=== PATIENT | female | born 1950 ===

== ENCOUNTER 2016-07-27 18:56 | Emergency (ER) | payer MEDICAID ==
[2016-07-27 18:56] VITALS: BMI 36.2
[2016-07-27 21:35] LABS: CHLORIDE 98 mmol/L (98-107)
[2016-07-27 21:36] LABS: BASO % 0.1 % (0.0-2.0); EOS # 0.1 K/uL (0.0-0.7); EOS % 0.6 % (0.0-4.0); HEMATOCRIT 42.7 % (34.0-47.0); LYMPH # 1.8 K/uL (1.0-4.3); MEAN CORPUSCULAR HGB CONC 33.1 g/dL (33.0-37.0); MEAN PLATELET VOLUME 7.3 fL (7.2-11.7); MONO # 0.4 K/uL (0.0-0.8); MONO % 4.3 % (0.0-10.0); POTASSIUM 4.7 mmol/L (3.6-5.2); RED CELL DISTRIBUTION WIDTH 14.9 % (11.5-14.5); SODIUM 135 mmol/L (132-148); WHITE BLOOD COUNT 9.5 K/uL (4.8-10.8)
[2016-07-27 21:38] LABS: ALB/GLOB RATIO 1.1 (1.0-2.1); ALKALINE PHOSPHATASE 104 U/L (38-126); AST/SGOT 62 U/L (14-36); BILIRUBIN,TOTAL 1.4 mg/dL (0.2-1.3); BLOOD UREA NITROGEN 12 mg/dL (7-17); CARBON DIOXIDE 21 mmol/L (22-30); GFR AFRICAN-AMERICAN > 60; GLUCOSE,RANDOM 94 mg/dL (65-105); TOTAL PROTEIN 8.5 g/dL (6.3-8.3)
[2016-07-27 21:39] LABS: ALT/SGPT 24 U/L (9-52); CALCIUM 9.1 mg/dl (8.6-10.4)
[2016-07-27 21:40] LABS: MEAN CELL VOLUME 84.3 fL (81.0-99.0)
[2016-07-27] MEDS ORDERED: Sodium Chloride 0.9% 1,000 ML IV ONE (21:49)
[2016-07-27] MEDS ORDERED: Iohexol 240 (50 ml) PO STA (21:49)
[2016-07-27 21:53] LABS: RBC URINE 2 /hpf (0-3); TRANSITIONAL EPITHIAL < 1 /hpf (0-3); URINE BACTERIA RARE (<OCC); URINE BILIRUBIN NEGATIVE (NEGATIVE); URINE BLOOD NEGATIVE (NEGATIVE); URINE COLOR Straw (YELLOW); URINE GLUCOSE (UA) NORMAL (Normal); URINE KETONE NEGATIVE (NEGATIVE); URINE LEUKOCYTE ESTERASE NEG Leu/uL (Negative); URINE PROTEIN NEGATIVE (NEGATIVE); URINE UROBILINOGEN NORMAL mg/dL (0.2-1.0); WBC URINE 1 /hpf (0-5)
[2016-07-27] MEDS ORDERED: Iohexol 240 (50 ml) ONE (22:31)
[2016-07-27] MEDS ORDERED: Iodixanol 320 MG/ML 100 ML BOTTLE IV ONE (22:31)
[2016-07-27] MEDS ORDERED: Sodium Chloride 0.9% 1,000 ML ONE (22:32)
--- NOTE | 2016-07-27 22:53 | C.PDOC ---
History Of Present Illness 65 year old female pt c/o of mid abdominal pain for the past few days. Pt notes nausea and few episodes of diarrhea, but denies blood in stool, fever, chills, vomiting, or any other complaints. Pt states taking medications for her episodes of diarrhea. Time Seen by Provider: 07/27/16 20:06 Chief Complaint (Nursing): Abdominal Pain History Per: Patient History/Exam Limitations: no limitations Onset/Duration Of Symptoms: Days Current Symptoms Are (Timing): Still Present Severity: Mild Associated Symptoms: Nausea, Diarrhea. denies: Fever, Chills, Vomiting Past Medical History Reviewed: Historical Data, Nursing Documentation, Vital Signs Vital Signs: Last Vital Signs Temp 98.7 F 07/28/16 00:45 Pulse 81 07/28/16 00:45 Resp 20 07/28/16 00:45 BP 159/64 H 07/28/16 00:45 Pulse Ox 96 07/28/16 00:45 - Medical History PMH: Arthritis, Colonic Polyps, Gastritis, Gall Bladder Disease, HTN, Hypercholesterolemia Other PMH: Surgical History: Cholecystectomy, Endoscopy Other Surgeries: Tubal ligation - [facility] Procedures ESOPHAGOGASTRODUODENOSCOPY [EGD] W/CLOSED BIOPSY (04/23/14) Family History: States: Unknown Family Hx - Social History Hx Tobacco Use: No Hx Alcohol Use: No Hx Substance Use: No - Immunization History Hx Tetanus Toxoid Vaccination: No Hx Influenza Vaccination: No Hx Pneumococcal Vaccination: No Review Of Systems Except As Marked, All Systems Reviewed And Found Negative. Constitutional: Negative for: Fever, Chills Gastrointestinal: Positive for: Nausea, Diarrhea. Negative for: Vomiting, Melena Physical Exam - Physical Exam Appears: Non-toxic, No Acute Distress Skin: Warm, Dry Head: Atraumatic, Normacephalic Eye(s): bilateral: Normal Inspection Cardiovascular: Rhythm Regular, No Murmur Respiratory: Normal Breath Sounds, No Rales, No Rhonchi, No Wheezing Gastrointestinal/Abdominal: Tenderness (Mild, diffuse tenderness of abdomen), No Guarding, No Rebound Neurological/Psych: Oriented x3, Normal Speech ED Course And Treatment - Laboratory Results Result Diagrams: 07/27/16 21:22 07/27/16 21:22 ECG: Interpreted By Me, Viewed By Me ECG Rhythm: Sinus Rhythm (84 sinus rhythm) ECG Interpretation: No Acute Changes O2 Sat by Pulse Oximetry: 97 Pulse Ox Interpretation: Normal - CT Scan/US CT Abd/Pel Other Rad Studies (CT/US): Interpreted By Me, Read By Radiologist CT/US Interpretation: EXAM: CT Abdomen and Pelvis With Intravenous Contrast. CLINICAL HISTORY: 65 years old, female; Pain; Abdominal pain; Prior surgery; Surgery type: Colonoscopy; Additional. info: Difuse abd pain. TECHNIQUE: Axial computed tomography images of the abdomen and pelvis with intravenous contrast. This CT. exam was performed using one or more of the following dose reduction techniques: automated. exposure control, adjustment of the mA and/or kV according to patient size, and/or use of iterative. reconstruction technique. Coronal and sagittal reformatted images were created and reviewed. CONTRAST: 100 mL of [id number] administered intravenously. EXAM DATE/TIME: Exam ordered 07/27/2016 9:49 PM. COMPARISON: No relevant prior studies available. FINDINGS: Lower thorax: Air in the esophagus in keeping with reflux. Small hiatus hernia. Lung bases with. bilateral atelectatic changes, mosaic attenuation, this is a finding with a broad differential but which. may be related to air trapping in appropriate clinical situation, clinical correlation. ABDOMEN: Liver: Hepatic steatosis. Punctate calcification in the liver, this may be related to previous. granulomatous disease. Gallbladder and bile ducts: The gallbladder is not visualized, suggesting prior cholecystectomy. No. ductal dilation. Pancreas: Unremarkable. No mass. No ductal dilation. Spleen: Unremarkable. No splenomegaly. Adrenals: Unremarkable. No mass. Kidneys and ureters: No hydronephrosis. Bilateral hypoattenuating lesions which are too small to. characterize. Nonobstructing right renal calculus, sagittal image 108 there is a questioned punctate. distal left ureteral calculus noting that this is not consider definite and may be a phlebolith, laboratory. correlation. Stomach and bowel: No abdominal wall hernias containing bowel. Scattered diverticuli. Fluid. content in the proximal colon which may be related to the recent procedure and prep. No findings of. bowel obstruction. No mucosal thickening in the areas that can be evaluated. Appendix: Normal appendix. PELVIS: Bladder: Bladder is poorly evaluated relative to collapse, cannot exclude questionable. inhomogeneous bladder wall thickness suggested for example sagittal image 99, coronal image 76 ,. correlation for infection or other bladder wall process recommended. Reproductive: There is a retroverted uterus, please note that details of uterine anatomy are not. visible on CT. ABDOMEN and PELVIS: Intraperitoneal space: There is no free air. No significant fluid collection. Bones/joints: Degenerative spine changes. Exaggeration of the normal lumbar lordosis. There are. multiple prominent bulging discs seen at multiple levels, see for example sagittal image 95, there is degenerative disc changes at multiple levels in the included portions of the thoracic and lumbar spine. No acute fracture. No dislocation. Soft tissues: See above. Vasculature: Limited evaluation of the origin of the inferior mesenteric artery, related to adjacent. plaque, although the proximal inferior mesenteric is well seen. Plaque at the origin of the superior. mesenteric artery favored to be less than 50%. Plaque at the origin of the celiac favored to be less. than 50%. extensive atherosclerotic calcifications. No abdominal aortic aneurysm. Lymph nodes: Aortocaval and external iliac nodes which do not meet the size criteria for pathologic. enlargement. IMPRESSION: No free air. Fluid content in the colon which could reflect a diarrheal process but is favored to be. related to the recent procedure. Questionable punctate distal left ureteral stone without hydronephrosis. Hepatic steatosis. Bladder wall is under distended, findings which may be artifactual, correlation for urinary tract. infection or other pathology of the bladder is recommended. Other as above. There is no previous CT of the abdomen for comparison, comparison on site is. recommended. Medical Decision Making Medical Decision Making: Plans: -CT abd/pel -Pepcid -IV fluids -Zofran -reassess and disposition Disposition - Disposition Referrals: Clinic,Med Surg [Primary Care Provider] - Disposition: HOME/ ROUTINE Disposition Time: 01:19 Condition: GOOD Additional Instructions: Follow up with PMD Return to the ED for any new or worsening symptoms Prescriptions: Dicyclomine [Bentyl] 1 tab PO TID PRN #30 tab PRN Reason: .abd pain Esomeprazole Magnesium [Nexium] 1 tab PO DAILY #30 ecc Metoclopramide [Reglan] 1 tab PO TID PRN #25 tab PRN Reason: Nausea/Vomiting Instructions: Abdominal Pain (ED) - Clinical Impression Clinical Impression: Abdominal pain - Scribe Statement The provider has reviewed the documentation as recorded by the Scribe Taz fang All medical record entries made by the Scribe were at my direction and personally dictated by me. I have reviewed the chart and agree that the record accurately reflects my personal performance of the history, physical exam, medical decision making, and the department course for this patient. I have also personally directed, reviewed, and agree with the discharge instructions and disposition.
--- NOTE | 2016-07-28 00:26 | CT ---
EXAM: CT Abdomen and Pelvis With Intravenous Contrast. CLINICAL HISTORY: 65 years old, female; Pain; Abdominal pain; Prior surgery; Surgery type: Colonoscopy; Additional info: Difuse abd pain TECHNIQUE: Axial computed tomography images of the abdomen and pelvis with intravenous contrast. This CT exam was performed using one or more of the following dose reduction techniques: automated exposure control, adjustment of the mA and/or kV according to patient size, and/or use of iterative reconstruction technique. Coronal and sagittal reformatted images were created and reviewed. CONTRAST: 100 mL of [id number] administered intravenously. EXAM DATE/TIME: Exam ordered 07/27/2016 9:49 PM COMPARISON: No relevant prior studies available. FINDINGS: Lower thorax: Air in the esophagus in keeping with reflux. Small hiatus hernia. Lung bases with bilateral atelectatic changes, mosaic attenuation, this is a finding with a broad differential but which may be related to air trapping in appropriate clinical situation, clinical correlation. ABDOMEN: Liver: Hepatic steatosis. Punctate calcification in the liver, this may be related to previous granulomatous disease. Gallbladder and bile ducts: The gallbladder is not visualized, suggesting prior cholecystectomy. No ductal dilation. Pancreas: Unremarkable. No mass. No ductal dilation. Spleen: Unremarkable. No splenomegaly. Adrenals: Unremarkable. No mass. Kidneys and ureters: No hydronephrosis. Bilateral hypoattenuating lesions which are too small to characterize. Nonobstructing right renal calculus, sagittal image 108 there is a questioned punctate distal left ureteral calculus noting that this is not consider definite and may be a phlebolith, laboratory correlation. Stomach and bowel: No abdominal wall hernias containing bowel. Scattered diverticuli. Fluid content in the proximal colon which may be related to the recent procedure and prep. No findings of bowel obstruction. No mucosal thickening in the areas that can be evaluated. Appendix: Normal appendix. PELVIS: Bladder: Bladder is poorly evaluated relative to collapse, cannot exclude questionable inhomogeneous bladder wall thickness suggested for example sagittal image 99, coronal image 76, correlation for infection or other bladder wall process recommended. Reproductive: There is a retroverted uterus, please note that details of uterine anatomy are not visible on CT. ABDOMEN and PELVIS: Intraperitoneal space: There is no free air. No significant fluid collection. Bones/joints: Degenerative spine changes. Exaggeration of the normal lumbar lordosis. There are multiple prominent bulging discs seen at multiple levels, see for example sagittal image 95, there is degenerative disc changes at multiple levels in the included portions of the thoracic and lumbar spine. No acute fracture. No dislocation. Soft tissues: See above. Vasculature: Limited evaluation of the origin of the inferior mesenteric artery, related to adjacent plaque, although the proximal inferior mesenteric is well seen. Plaque at the origin of the superior mesenteric artery favored to be less than 50%. Plaque at the origin of the celiac favored to be less than 50%. extensive atherosclerotic calcifications. No abdominal aortic aneurysm. Lymph nodes: Aortocaval and external iliac nodes which do not meet the size criteria for pathologic enlargement. IMPRESSION: No free air. Fluid content in the colon which could reflect a diarrheal process but is favored to be related to the recent procedure. Questionable punctate distal left ureteral stone without hydronephrosis. Hepatic steatosis. Bladder wall is under distended, findings which may be artifactual, correlation for urinary tract infection or other pathology of the bladder is recommended. Other as above. There is no previous CT of the abdomen for comparison, comparison on site is recommended.
[2016-07-28 01:38] VITALS: BP 126/67; PULSE 79; RESP 16; TEMP 98.9; O2SAT 96
--- NOTE | 2016-07-29 15:07 | CARD ---
APPROVED REPORT EKG Measurement Heart [id number] <Conclusion> Normal sinus rhythm Nonspecific ST abnormality Abnormal ECG
== END 2016-07-28 02:15 | disposition home or self-care (01) ==
LOC: C.ER 18:56 → SUPCPDRO 18:56 → C.ER 07-28 02:15
DX: R10.84 Generalized abdominal pain (principal)
CPT/HCPCS: 74177; 80053; 81001; 85025; 93005; 96374; 96375; 99285; J2405; J7040; Q9966; Q9967

== ENCOUNTER 2016-11-24 11:29 | Inpatient (IN) | payer MEDICAID ==
[2016-11-24 11:30] VITALS: BMI 36.2
[2016-11-24 12:34] LABS: BASO % 0.5 % (0.0-2.0); EOS # 0.1 K/uL (0.0-0.7); EOS % 1.4 % (0.0-4.0); HEMATOCRIT 42.6 % (34.0-47.0); LYMPH % 42.3 % (20.0-40.0); MEAN CELL VOLUME 84.1 fL (81.0-99.0); MEAN CORPUSCULAR HEMOGLOBIN 27.3 pg (27.0-31.0); MEAN CORPUSCULAR HGB CONC 32.4 g/dL (33.0-37.0); MEAN PLATELET VOLUME 7.5 fL (7.2-11.7); MONO # 0.5 K/uL (0.0-0.8); MONO % 6.9 % (0.0-10.0); RED CELL DISTRIBUTION WIDTH 14.7 % (11.5-14.5)
--- NOTE | 2016-11-24 12:36 | C.PDOC ---
History Of Present Illness 65 yr old female presents to the ER for new onset of headache with left sided facial numbness since morning. Patient was referred from [facility] for evaluation. Patient states chronic LUE numbness. Also notes of vertigo like dizziness, possibly associated with position. Patient is right handed. Denies fever, vision changes, nausea, vomiting, neck pain or weakness. [place], L FACIAL NUMBNESS THIS MORNING. REFERRED FROM [facility] FOR EVAL, STATES PT W CHRONIC LUE NUMBNESS. NO ASSOC WEAKNESS. +VERTIGO LIKE DIZZY, ? ASSOC W POSITION. R HANDED EXAM NEG Time Seen by Provider: 11/24/16 11:58 Chief Complaint (Nursing): Dizziness/Lightheaded History Per: Patient History/Exam Limitations: no limitations Onset/Duration Of Symptoms: Sudden Onset (Since morning ) Current Symptoms Are (Timing): Still Present Past Medical History Reviewed: Historical Data, Nursing Documentation, Vital Signs Vital Signs: Last Vital Signs Temp 97.8 F 11/24/16 14:07 Pulse 64 11/24/16 14:07 Resp 16 11/24/16 14:07 BP 138/62 11/24/16 14:07 Pulse Ox 98 11/24/16 14:14 - Medical History PMH: Arthritis, Colonic Polyps, Gastritis, Gall Bladder Disease, HTN, Hypercholesterolemia Surgical History: Cholecystectomy, Endoscopy - [facility] Procedures ESOPHAGOGASTRODUODENOSCOPY [EGD] W/CLOSED BIOPSY (04/23/14) Family History: States: No Known Family Hx - Social History Hx Tobacco Use: No Hx Alcohol Use: No Hx Substance Use: No - Immunization History Hx Tetanus Toxoid Vaccination: No Hx Influenza Vaccination: No Hx Pneumococcal Vaccination: No Review Of Systems Except As Marked, All Systems Reviewed And Found Negative. Constitutional: Positive for: Other ((+) Left sided facial numbness). Negative for: Fever Eyes: Negative for: Vision Change Gastrointestinal: Negative for: Nausea, Vomiting Musculoskeletal: Positive for: Other ((+) Chronic LUE numbness. ). Negative for : Neck Pain Neurological: Positive for: Headache, Dizziness (Vertigo like dizziness ). Negative for: Weakness Physical Exam - Physical Exam Appears: Non-toxic, No Acute Distress Skin: Normal Color, Warm, Dry, No Rash Head: Atraumatic, Normacephalic Oral Mucosa: Moist Neck: Normal, Normal ROM, Supple Chest: Symmetrical, No Tenderness Cardiovascular: Rhythm Regular, No Murmur Respiratory: Normal Breath Sounds, No Rales, No Rhonchi, No Wheezing Gastrointestinal/Abdominal: Normal Exam, Soft, No Tenderness, No Guarding, No Rebound Extremity: Normal ROM, No Swelling Neurological/Psych: Oriented x3, Normal Speech, Normal Motor ED Course And Treatment - Laboratory Results Result Diagrams: 11/24/16 12:27 11/24/16 12:27 ECG: Interpreted By Me ECG Rhythm: Sinus Rhythm ECG Interpretation: Normal Rate From EC O2 Sat by Pulse Oximetry: 98 (RA ) Pulse Ox Interpretation: Normal - Other Rad CXR X-Ray: Viewed By Me, Read By Radiologist Interpretation: HISTORY: LEFT ARM NUMBNESS. COMPARISON: 11/11/2013 and 2014. TECHNIQUE: Chest PA and lateral. FINDINGS: LUNGS: Stable right upper lobe pulmonary nodule, possibly calcified. 6 mm diameter. No other pulmonary mass. No pulmonary infiltrate. PLEURA: No significant pleural effusion identified. No pneumothorax apparent. CARDIOVASCULAR: Normal. OSSEOUS STRUCTURES: No significant abnormalities. VISUALIZED UPPER ABDOMEN: Normal. OTHER FINDINGS: None. IMPRESSION: Stable 6 mm right upper lobe nodule, possibly calcified. Otherwise unremarkable examination. - CT Scan/US CT - Head Other Rad Studies (CT/US): Read By Radiologist, Radiology Report Reviewed CT/US Interpretation: PROCEDURE: CT HEAD WITHOUT CONTRAST. HISTORY: LEFT ARM NUMBNESS ER BED 5. COMPARISON: None available. TECHNIQUE: Axial computed tomography images were obtained through the head/brain without intravenous contrast. Radiation dose: Total exam DLP = 801.92 mGy-cm. This CT exam was performed using one or more of the following dose reduction techniques: Automated exposure control, adjustment of the mA and/or kV according to patient size, and/or use of iterative reconstruction technique. FINDINGS: HEMORRHAGE: No intracranial hemorrhage. BRAIN: No mass effect or edema. No atrophy or chronic microvascular ischemic changes. VENTRICLES: Unremarkable. No hydrocephalus. CALVARIUM: No calvarial fracture. Abundant fatty subcutaneous tissue high right frontal scalp without evidence of discrete mass such as lipoma. PARANASAL SINUSES: Unremarkable as visualized. No significant inflammatory changes. MASTOID AIR CELLS: Unremarkable as visualized. No inflammatory changes. OTHER FINDINGS: None. IMPRESSION: No intracranial mass, hemorrhage or evidence of acute infarct. - Physician Consult Information Time Consulting Physician Contacted: 14:13 Physician Contacted: Olaf Ghosh Outcome Of Conversation: will admit NIHSS Stroke Scale - Date/Time Evaluation Performed Date Performed: 11/24/16 Time Performed: 10:45 When Was NIHSS Performed: Baseline - How Severe is the Stroke Level of Consciousness: 0=Alert LOC to Questions: 0=Both comments correct LOC to commands: 0=Obeys both correctly Best Gaze: 0=Normal Visual: 0=No visual loss Facial: 0=Normal Motor Arm - Left: 0=No drift Motor Arm - Right: 0=No drift Motor Leg - Left: 0=No drift Motor Leg - Right: 0=No drift Limb Ataxia: 0=Absent Sensory: 1=Mild to moderate loss Best Language: 0=No aphasia Dysarthia: 0=Normal articulation Extinction & Inattention (Neglect): 0=Normal, no object Score: 1 rTPA Inclusion/Exclusion - Refusal of Treatment Patient Refused Treatment: No - Inclusion Criteria for Altepase Patient is 18 years or Older: Yes The Clinical Diagnosis of Ischemic Stroke That is Causing a Potentially Disabling Neurological Deficit: Yes Time of Onset is Well Established to be Less Than 270 Minute Before Treatment Would Begin: No Risk/Benefit Discussed With Patient/Family Member Present: Yes - Exclusion Criteria for Altepase Uncontrolled Hypertension at Time of Treatment (Systolic BP above 185 or Diastolic BP above 110 mmHg): No Active Internal Bleeding: No Known Bleeding Diathesis Including but Not Limited to: Platelets Below 100,000/ mm,PTT Above 40 sec After Heparin Use, Current Use of Oral Anitcoagulant With INR Greater Than 1.7 or PT Greater Than 15 secs: No Evidence of an Intracranial Hemorrhage: No Evidence of Major Acute Infarct With Signs Greater Than 1/3 MCA Territory: No Suspicion of Subarachnoid Hemorrhage on Pretreatment Evaluation Even if CT Head Negative For Hemorrhage: No - Warning to TPA With Conditions Following Conditions Weighed Against Anticipated Benefit: Yes Condition: Stroke Serevity Too Mild Medical Decision Making Medical Decision Making: PLAN: * CT - Head * CXR * EKG * CBC * CMP * Urinalysis Disposition Counseled Patient/Family Regarding: Studies Performed, Diagnosis - Disposition Disposition: HOSPITALIZED Disposition Time: 14:14 Condition: STABLE - POA Present On Arrival: None - Clinical Impression Clinical Impression: TIA (transient ischemic attack) - Scribe Statement The provider has reviewed the documentation as recorded by the Lorin Blanco Provider Attestation: All medical record entries made by the Scribe were at my direction and personally dictated by me. I have reviewed the chart and agree that the record accurately reflects my personal performance of the history, physical exam, medical decision making, and the department course for this patient. I have also personally directed, reviewed, and agree with the discharge instructions and disposition. Decision To Admit - Pt Status Changed To: Hospital Disposition Of: Observation - . Bed Request Type: Telemetry Admitting Physician: Olaf Ghosh Patient Diagnosis: TIA (transient ischemic attack)
[2016-11-24 12:41] LABS: INR 0.9
[2016-11-24 12:44] LABS: CHLORIDE 101 mmol/L (98-107)
[2016-11-24 12:45] LABS: POTASSIUM 3.7 mmol/L (3.6-5.2); SODIUM 137 mmol/L (132-148)
[2016-11-24 12:47] LABS: CARBON DIOXIDE 23 mmol/L (22-30); CHOLESTEROL 232 mg/dL (0-199)
[2016-11-24 12:48] LABS: ALB/GLOB RATIO 1.2 (1.0-2.1); ALKALINE PHOSPHATASE 125 U/L (38-126); ALT/SGPT 56 U/L (9-52); AST/SGOT 43 U/L (14-36); BILIRUBIN,TOTAL 0.5 mg/dL (0.2-1.3); BLOOD UREA NITROGEN 14 mg/dL (7-17); CALCIUM 9.3 mg/dl (8.6-10.4); GFR AFRICAN-AMERICAN > 60; GLUCOSE,RANDOM 88 mg/dL (65-105); TOTAL PROTEIN 7.6 g/dL (6.3-8.3)
--- NOTE | 2016-11-24 12:58 | RAD ---
HISTORY: LEFT ARM NUMBNESS COMPARISON: 11/11/2013 and 07/01/2014 TECHNIQUE: Chest PA and lateral FINDINGS: LUNGS: Stable right upper lobe pulmonary nodule, possibly calcified. 6 mm diameter. No other pulmonary mass. No pulmonary infiltrate. PLEURA: No significant pleural effusion identified. No pneumothorax apparent. CARDIOVASCULAR: Normal. OSSEOUS STRUCTURES: No significant abnormalities. VISUALIZED UPPER ABDOMEN: Normal. OTHER FINDINGS: None. IMPRESSION: Stable 6 mm right upper lobe nodule, possibly calcified. Otherwise unremarkable examination.
[2016-11-24 12:59] LABS: RBC URINE < 1 /hpf (0-3); URINE BACTERIA RARE (<OCC); URINE BILIRUBIN NEGATIVE (NEGATIVE); URINE BLOOD NEGATIVE (NEGATIVE); URINE COLOR Straw (YELLOW); URINE GLUCOSE (UA) NORMAL (Normal); URINE KETONE NEGATIVE (NEGATIVE); URINE LEUKOCYTE ESTERASE 1+ Leu/uL (Negative); URINE PROTEIN NEGATIVE (NEGATIVE); URINE UROBILINOGEN NORMAL mg/dL (0.2-1.0); WBC URINE 3 /hpf (0-5)
--- NOTE | 2016-11-24 13:13 | CT ---
PROCEDURE: CT HEAD WITHOUT CONTRAST. HISTORY: LEFT ARM NUMBNESS ER BED 5 COMPARISON: None available. TECHNIQUE: Axial computed tomography images were obtained through the head/brain without intravenous contrast. Radiation dose: Total exam DLP = 801.92 mGy-cm. This CT exam was performed using one or more of the following dose reduction techniques: Automated exposure control, adjustment of the mA and/or kV according to patient size, and/or use of iterative reconstruction technique. FINDINGS: HEMORRHAGE: No intracranial hemorrhage. BRAIN: No mass effect or edema. No atrophy or chronic microvascular ischemic changes. VENTRICLES: Unremarkable. No hydrocephalus. CALVARIUM: No calvarial fracture. Abundant fatty subcutaneous tissue high right frontal scalp without evidence of discrete mass such as lipoma. PARANASAL SINUSES: Unremarkable as visualized. No significant inflammatory changes. MASTOID AIR CELLS: Unremarkable as visualized. No inflammatory changes. OTHER FINDINGS: None. IMPRESSION: No intracranial mass, hemorrhage or evidence of acute infarct.
[2016-11-24] MEDS: Pantoprazole 40 mg EC Tab PO SCH (16:48)
[2016-11-24] MEDS: Enoxaparin 40 mg Syringe SC SCH (16:49)
--- NOTE | 2016-11-24 22:48 | CP.PCM.HP ---
<Farhan King E - Last Filed: 11/24/16 23:07> History of Present Illness - History of Present Illness History of Present Illness: CC: Headache and Left-sided facial numbness HPI: Patient is a 65 year old female with past medical history of hypertension, high cholesterol, hemorrhoids and hernias, who presents to the ED complaining of numbness in the top of her head/back of her neck and left side of face which she first noticed this morning (11/24/2016) around 6:30AM. Patient states that she noticed left facial droop. Patient was at her PCP, who advised her to come to the ED. Patient states she experienced a similar episode a few years ago that resolved on its own. During the episode, patient states she was diaphoretic, dizzy, nauseous and felt generally weak but denies vomiting. Patient reports that she had a sore throat earlier this week, which has since resolved. In the ED, she complains of left lower extremity weakness, SOB and a frontal headache. PMD: Dr. Keenan PMHx: Hypertension, hypercholesterolemia, hemorrhoids, herniated disc, gastritis , colonic polyps, hernia PSHx: Cholecystectomy, Tubal ligation, Lipoma removal, Repair of bladder prolapse, Colonoscopy 3x, Endoscopy FMHx: Mother: [place] at age 92 ( ). Father: MVA ( ) Medications: Norvasc 10mg PO QD, Gabapentin 300mg PO QD, Omeprazole 20mg PO QD Allergies; NKDA Social History: Lives with . 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 Denies use of tobacco, ETOH and illicit drugs. Medications given in the ER: None Present on Admission - Present on Admission Any Indicators Present on Admission: No Review of Systems - Constitutional Constitutional: Chills, Headache, Weakness. absent: Fever - EENT Eyes: Blurred Vision Ears: Dizziness Nose/Mouth/Throat: Sore Throat - Cardiovascular Cardiovascular: Chest Pain, Dyspnea - Respiratory Respiratory: Dyspnea - Gastrointestinal Gastrointestinal: Nausea. absent: Abdominal Pain, Vomiting - Genitourinary Genitourinary: absent: Dysuria, Pyuria, Urinary Frequency, Urinary Urgency - Musculoskeletal Musculoskeletal: Muscle Weakness, Numbness - Neurological Neurological: Dizziness, Numbness, Focal Weakness - Endocrine Endocrine: absent: Fatigue, Palpitations Past Patient History - Infectious Disease Hx of Infectious Diseases: None - Past Medical History & Family History Past Medical History?: Yes - Past Social History Smoking Status: Never Smoked - CARDIAC Hx Hypercholesterolemia: Yes Hx Hypertension: Yes - PULMONARY Hx Respiratory Disorders: No - NEUROLOGICAL Hx Neurological Disorder: No - HEENT Hx HEENT Problems: No - RENAL Hx Chronic Kidney Disease: No - ENDOCRINE/METABOLIC Hx Endocrine Disorders: No - HEMATOLOGICAL/ONCOLOGICAL Hx Blood Disorders: Yes - INTEGUMENTARY Hx Dermatological Problems: No - MUSCULOSKELETAL/RHEUMATOLOGICAL Hx Falls: No - GASTROINTESTINAL Hx Gall Bladder Disease: Yes Hx Gastritis: Yes - GENITOURINARY/GYNECOLOGICAL Hx Genitourinary Disorders: No - PSYCHIATRIC Hx Substance Use: No - SURGICAL HISTORY Hx Cholecystectomy: Yes - ANESTHESIA Hx Anesthesia: Yes Hx Anesthesia Reactions: No Meds Allergies/Adverse Reactions: Allergies Allergy/AdvReac Type Severity Reaction Status Date / Time No Known Allergies Allergy Verified 11/24/16 11:35 Results - Vital Signs Recent Vital Signs: Last Vital Signs Temp 98.1 F 11/24/16 16:03 Pulse 62 11/24/16 20:28 Resp 20 11/24/16 16:03 BP 146/74 11/24/16 16:03 Pulse Ox 96 11/24/16 16:03 - Labs Result Diagrams: 11/24/16 12:27 11/24/16 12:27 Assessment & Plan (1) TIA (transient ischemic attack) Assessment and Plan: Neurology Consult, Dr. Burris---> Help appreciated Rule out possible TIA Lipid panel: -T -Cholesterol: 232 -LDL: 175 -HDL: 48 HgbA1c: 6.1 F/u TSH Imaging: CT Head: No intracranial mass, hemorrhage or evidence of acute infarct. F/u Brain MRI, MRA head and neck, Carotid doppler, Echocardiogram Medications: * Aspirin 81mg PO daily * Crestor 10mg PO QD * Lovenox 40mg SC QD Status: Acute (2) Hypertension Assessment and Plan: Continue home medication: * Norvasc 10mg PO daily Status: Acute (3) Hypercholesterolemia Assessment and Plan: Lipid Panel: -T -Cholesterol: 232 -LDL: 175 -HDL: 48 Medication: Crestor 10mg PO QD Status: Acute (4) Transaminitis Assessment and Plan: AST/ALT: 43/53 * Monitor Status: Acute (5) Glucose intolerance (impaired glucose tolerance) Assessment and Plan: Hgba1c: 6.1 * Will need follow-up a1c in one year to avoid overt diabetes Status: Acute (6) Prophylactic measure Assessment and Plan: SCDs DVT ppx: Lovenox 40mg SC QD GI ppx: Protonix 40mg PO QD Heart healthy diet Neuro checks Status: Acute <Olaf Ghosh - Last Filed: 11/25/16 16:23> Results - Vital Signs Recent Vital Signs: Last Vital Signs Temp 97.4 F L 11/25/16 15:57 Pulse 63 11/25/16 15:57 Resp 20 11/25/16 15:57 BP 109/67 11/25/16 15:57 Pulse Ox 96 11/25/16 15:57 - Labs Result Diagrams: 11/25/16 08:01 11/25/16 08:01 Attending/Attestation - Attestation I have personally seen and examined this patient.: Yes I have fully participated in the care of the patient.: Yes I have reviewed all pertinent clinical information: Yes Notes (Text): 11/25/16 16:22 Patient was seen and examined at bedside with the resident We will admit the patient for transit ischemic attack We will initiate the workup for TIA We will request neurology evaluation I discussed the plan of care with the resident and agree with the history and physical and assessment/plan document above.
[2016-11-25 08:08] LABS: BASO % 0.3 % (0.0-2.0); EOS # 0.1 K/uL (0.0-0.7); EOS % 1.9 % (0.0-4.0); HEMATOCRIT 40.9 % (34.0-47.0); LYMPH # 2.7 K/uL (1.0-4.3); LYMPH % 44.1 % (20.0-40.0); MEAN CELL VOLUME 83.8 fL (81.0-99.0); MEAN CORPUSCULAR HEMOGLOBIN 27.4 pg (27.0-31.0); MEAN CORPUSCULAR HGB CONC 32.7 g/dL (33.0-37.0); MEAN PLATELET VOLUME 7.4 fL (7.2-11.7); MONO # 0.4 K/uL (0.0-0.8); MONO % 7.4 % (0.0-10.0); NRBC % 0.1 % (0.0-2.0); RED CELL DISTRIBUTION WIDTH 14.6 % (11.5-14.5); WHITE BLOOD COUNT 6.1 K/uL (4.8-10.8)
[2016-11-25 08:17] LABS: ALKALINE PHOSPHATASE 110 U/L (38-126); ALT/SGPT 56 U/L (9-52); AST/SGOT 44 U/L (14-36); BILIRUBIN,TOTAL 0.6 mg/dL (0.2-1.3); BLOOD UREA NITROGEN 15 mg/dL (7-17); CALCIUM 9.2 mg/dl (8.6-10.4); CARBON DIOXIDE 23 mmol/L (22-30); CHLORIDE 101 mmol/L (98-107); GFR AFRICAN-AMERICAN > 60; GLUCOSE,RANDOM 90 mg/dL (65-105); MAGNESIUM 2.1 mg/dL (1.6-2.3); PHOSPHOROUS 4.1 mg/dL (2.5-4.5); POTASSIUM 3.8 mmol/L (3.6-5.2); SODIUM 137 mmol/L (132-148)
[2016-11-25 08:33] LABS: ALB/GLOB RATIO 1.2 (1.0-2.1)
[2016-11-25 08:47] LABS: THYROID STIMULATING HORMONE 1.57 mIU/L (0.46-4.68)
[2016-11-25] MEDS: Pantoprazole 40 mg EC Tab PO SCH (10:55)
[2016-11-25] MEDS: Enoxaparin 40 mg Syringe SC SCH (10:56)
--- NOTE | 2016-11-25 11:56 | CP.PCM.CON ---
History of Present Illness - History of Present Illness History of Present Illness: Mrs. Namita Egan is a 65-year-old woman with a past medical history of HTN , HLD and previous TIA who presented with complaints of left facial droop and left sensory deficits that are completely resolved today. She complains of back pain that radiates to the buttock and left posterior region of the leg, down to the heal. She states that at times she also feels that her left leg is week. She denies visual changes, headache, nausea, other weakness or sensory changes. Review of Systems - Review of Systems All systems: reviewed and no additional remarkable complaints except Past Patient History - Infectious Disease Hx of Infectious Diseases: None - Past Medical History & Family History Past Medical History?: Yes - Past Social History Smoking Status: Never Smoked - CARDIAC Hx Hypercholesterolemia: Yes Hx Hypertension: Yes - PULMONARY Hx Respiratory Disorders: No - NEUROLOGICAL Hx Neurological Disorder: No - HEENT Hx HEENT Problems: No - RENAL Hx Chronic Kidney Disease: No - ENDOCRINE/METABOLIC Hx Endocrine Disorders: No - HEMATOLOGICAL/ONCOLOGICAL Hx Blood Disorders: Yes - INTEGUMENTARY Hx Dermatological Problems: No - MUSCULOSKELETAL/RHEUMATOLOGICAL Hx Falls: No - GASTROINTESTINAL Hx Gall Bladder Disease: Yes Hx Gastritis: Yes - GENITOURINARY/GYNECOLOGICAL Hx Genitourinary Disorders: No - PSYCHIATRIC Hx Substance Use: No - SURGICAL HISTORY Hx Cholecystectomy: Yes - ANESTHESIA Hx Anesthesia: Yes Hx Anesthesia Reactions: No Meds Allergies/Adverse Reactions: Allergies Allergy/AdvReac Type Severity Reaction Status Date / Time No Known Allergies Allergy Verified 11/24/16 11:35 - Medications Medications: Current Medications Amlodipine Besylate (Norvasc) 10 mg PO DAILY [facility] Last Admin: 11/25/16 10:55 Dose: 10 mg Aspirin (Ecotrin) 81 mg PO DAILY [facility] Last Admin: 11/25/16 10:55 Dose: 81 mg Enoxaparin Sodium (Lovenox) 40 mg SC DAILY [facility] Last Admin: 11/25/16 10:56 Dose: 40 mg Gabapentin (Neurontin) 300 mg PO DAILY [facility] Last Admin: 11/25/16 10:55 Dose: 300 mg Pantoprazole Sodium (Protonix Ec Tab) 40 mg PO DAILY [facility] Last Admin: 11/25/16 10:55 Dose: 40 mg Rosuvastatin Calcium (Crestor) 10 mg PO HS [facility] Last Admin: 11/24/16 21:41 Dose: 10 mg Physical Exam - Constitutional Appears: Well - Head Exam Head Exam: ATRAUMATIC, NORMAL INSPECTION, NORMOCEPHALIC - Eye Exam Eye Exam: EOMI, Normal appearance, PERRL - ENT Exam ENT Exam: Mucous Membranes Moist, Normal Exam - Neck Exam Neck exam: Positive for: Normal Inspection - Respiratory Exam Respiratory Exam: Clear to Auscultation Bilateral, NORMAL BREATHING PATTERN - Cardiovascular Exam Cardiovascular Exam: REGULAR RHYTHM, +S1, +S2 - GI/Abdominal Exam GI & Abdominal Exam: Normal Bowel Sounds, Soft. absent: Tenderness - Extremities Exam Extremities exam: Positive for: normal inspection - Back Exam Back exam: NORMAL INSPECTION - Neurological Exam Neurological exam: Abnormal Gait, CN II-XII Intact, Oriented x3, Reflexes Normal Additional comments: Mild pronator drift on the left upper extremity, full strength otherwise, normal reflexes and sensation throughout. NIHSS=1 for pronator drift Results - Vital Signs Recent Vital Signs: Last Vital Signs Temp 97.6 F 11/25/16 07:00 Pulse 66 11/25/16 07:00 Resp 18 11/25/16 07:00 BP 130/73 11/25/16 07:00 Pulse Ox 97 11/25/16 07:00 - Labs Result Diagrams: 11/25/16 08:01 11/25/16 08:01 - Imaging and Cardiology CT scan - head Status: Image reviewed by me, Report reviewed by me (No acute findings. ) Assessment & Plan (1) TIA (transient ischemic attack) Assessment and Plan: The patient has mild neurological deficits, but what she presented with has resolved. With her risk factors, we should focus on stroke prevention. I recommend the followin. Telemetry 2. Follow MRI/MRA results for head/neck 3. Continue neurontin for neuropathic pain 4. Aspirin 81 mg daily and Plavix 75 mg daily for 21 days, then continue Plavix indefinitely 5. Continue Crestor 10 mg daily 6. PT/OT eval and treat 7. DVT Px 8. Follow echo results 9. Follow up with outpatient neurology once stable Thank you. Status: Acute Priority: High
--- NOTE | 2016-11-25 12:27 | MRI ---
PROCEDURE: MRI BRAIN WITHOUT CONTRAST HISTORY: TIA COMPARISON: Comparison made with prior CT scan brain 11/24/2016. Correlation also made with the concurrent MRA brain. TECHNIQUE: Multiplanar, multisequence MR images of the brain were obtained without intravenous contrast enhancement. FINDINGS: HEMORRHAGE: No acute parenchymal, subarachnoid nor extra-axial hemorrhage. No evidence of hemosiderin deposition identified on gradient echo weighted sequence. DWI: No evidence of an acute or early subacute infarction seen on diffusion imaging. . BRAIN PARENCHYMA: Minor chronic periventricular white matter ischemic changes with multiple tiny focal areas of increased T2 signal scattered about the deep and subcortical white matter both cerebral hemispheres likely representing tiny chronic lacunar type infarcts. There also appear to be a few tiny chronic lacunar type infarcts scattered about both basal nuclei. Mild generalized volume loss. VENTRICLES: No evidence of obstructive hydrocephalus CRANIUM: There are no acute calvarial abnormalities. ORBITS: Grossly unremarkable. PARANASAL SINUSES/MASTOIDS: Mild linear and polypoid like mucosal thickening noted within the right maxillary antrum VASCULAR SYSTEM: Visualized major vascular flow voids at skull base are patent. OTHER FINDINGS: None. IMPRESSION: No acute intracranial hemorrhage or infarct. 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 Mild generalized volume loss. Mild mucoperiosteal inflammatory changes right maxillary sinus
--- NOTE | 2016-11-25 13:06 | CARD ---
APPROVED REPORT EXAM: Two-dimensional and M-mode echocardiogram with Doppler and color Doppler. Other Information Quality : GoodRhythm : NSR INDICATION CVA/TIA RISK FACTORS Hypertension Hyperlipidemia M-Mode DIMENSIONS RVDd1.50 (2.1-3.2cm)Left Atrium (MM)3.69 (2.5-4.0cm) IVSd1.09 (0.7-1.1cm)Aortic Root2.77 (2.2-3.7cm) LVDd4.52 (4.0-5.6cm)Aortic Cusp Exc.1.03 (1.5-2.0cm) PWd1.20 (0.7-1.1cm)FS (%) 42 % LVDs2.60 (2.0-3.8cm)LVEF (%)74 (>50%) Mitral Valve MV E Domvrxvk37.7cm/sMV A Lsztktdi50.3cm/sE/A ratio0.8 TDI E/Lateral E'0.0E/Medial E'0.0 Tricuspid Valve TR Peak Uiejjsqd120zs/sTR Peak Gr.[id number] LEFT VENTRICLE The left ventricle is normal size. There is borderline concentric left ventricular hypertrophy. Left ventricle systolic function is normal. The Ejection Fraction is >70%. There is normal LV segmental wall motion. Transmitral Doppler flow pattern is Grade I-abnormal relaxation pattern. There is no ventricular septal defect visualized. RIGHT VENTRICLE The right ventricle is normal size. The right ventricular systolic function is normal. ATRIA The left atrium size is normal. The right atrium size is normal. AORTIC VALVE The aortic valve is mildly sclerotic. The aortic valve is tri-cuspid. No aortic regurgitation is present. There is no aortic valvular stenosis. MITRAL VALVE The mitral valve is normal in structure. There is no evidence of mitral valve prolapse. There is no mitral valve regurgitation noted. TRICUSPID VALVE The tricuspid valve is normal in structure. There is trace tricuspid regurgitation. There is no pulmonary hypertension. PULMONIC VALVE The pulmonic valve is not well visualized. There is no pulmonic valvular regurgitation. GREAT VESSELS The IVC is normal in size and collapses >50% with inspiration. PERICARDIAL EFFUSION There is no pericardial effusion. <Conclusion> There is borderline concentric left ventricular hypertrophy. Left ventricle systolic function is normal. The Ejection Fraction is >70%. Transmitral Doppler flow pattern is Grade I-abnormal relaxation pattern.
--- NOTE | 2016-11-25 13:16 | MRI ---
PROCEDURE: MRA brain 11/25/2016 HISTORY: TIA COMPARISON: Correlation made with concurrent MRI brain and CT scan brain 11/24/2016. TECHNIQUE: 3D time of flight MR angiography of the intracranial arteries was performed. Rotating maximum intensity projection images were generated FINDINGS: Findings: The petrous segments of the internal carotid arteries are widely patent and are symmetric. . There is mild asymmetry of the distal cavernous carotid segments, right-side of which appears smaller in caliber than the left . Additionally, there also may be some flow related type artifact within this section of the distal cavernous segment mimicking a stenosis however the possibility of atherosclerotic disease cannot be completely excluded. . Note that there are only minimal calcified plaque changes seen both cavernous segments seen on bone window prior CT scan. The supraclinoid segments as well as the A1 and M1 segments are also widely patent without evidence of occlusion or significant stenosis. . The distal branches of the middle cerebral arteries appear symmetric. . 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 . No evidence of large aneurysm nor vascular malformation. . Impression: There is mild asymmetry of the distal cavernous carotid segments of the internal carotid arteries right-sided which is smaller in caliber than the left. There there may also be some flow related type flow related type artifact within this segment of the right cavernous carotid artery however some localized atherosclerotic narrowing cannot be completely excluded. 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 . No evidence of large aneurysm nor vascular malformation.
--- NOTE | 2016-11-25 13:25 | MRI ---
PROCEDURE: MRA of the neck dated 11/25/2016. HISTORY: TIA. COMPARISON: Correlation made with concurrent carotid Doppler. TECHNIQUE: 3D [id number] angiography of the neck was performed. Rotating maximum intensity projection images of the cervical carotid and vertebral arteries were generated. The origins of the common carotid arteries were not visualized, which is a limitation inherent to the non-contrast time of flight technique. FINDINGS: The visualized common carotid arteries, carotid bifurcations and internal carotid arteries are widely patent without evidence of occlusion, dissection or significant stenosis. Note that the left proximal internal carotid artery exhibits a short retropharyngeal course. Both above vertebral arteries are visible throughout however there is mild asymmetry of the vertebral arteries, left-sided which is larger in caliber slightly more dominant than the right. . Impression: No evidence of occlusion dissection or significant stenosis. Note that there is a short retropharyngeal course of the proximal left internal carotid artery. Dominant left vertebral artery with small caliber right vertebral artery.
--- NOTE | 2016-11-25 16:58 | CP.PCM.PN ---
<Vanesa Jackson - Last Filed: 11/25/16 17:28> Subjective - Date & Time of Evaluation Date of Evaluation: 11/25/16 Time of Evaluation: 16:56 - Subjective Subjective: PGY2 progress note for hospitalists Pt is seen and examined at bedside. No acute events overnight. Patient denies having any CP, SOB, abd pain, N/V/D/C, F/C, HERR. Patient c/o low back pain and constipation. 12 point ROS are negative except for the above mentioned. Objective - Vital Signs/Intake and Output Vital Signs (last 24 hours): Temp Pulse Resp BP Pulse Ox 97.4 F L 63 20 109/67 96 11/25/16 15:57 11/25/16 15:57 11/25/16 15:57 11/25/16 15:57 11/25/16 15:57 Intake and Output: 11/25/16 11/25/16 06:59 18:59 Intake Total 350 Balance 350 - Medications Medications: Current Medications Amlodipine Besylate (Norvasc) 10 mg PO DAILY [facility] Last Admin: 11/25/16 10:55 Dose: 10 mg Aspirin (Ecotrin) 81 mg PO DAILY [facility] Last Admin: 11/25/16 10:55 Dose: 81 mg Clopidogrel Bisulfate (Plavix) 75 mg PO DAILY [facility] Last Admin: 11/25/16 12:36 Dose: 75 mg Enoxaparin Sodium (Lovenox) 40 mg SC DAILY [facility] Last Admin: 11/25/16 10:56 Dose: 40 mg Famotidine (Pepcid) 20 mg PO BID [facility] Gabapentin (Neurontin) 300 mg PO DAILY [facility] Last Admin: 11/25/16 10:55 Dose: 300 mg Rosuvastatin Calcium (Crestor) 10 mg PO HS [facility] Last Admin: 11/24/16 21:41 Dose: 10 mg - Labs Labs: PT 10.2 SECONDS (9.7-12.2) 11/24/16 12:27 INR 0.9 11/24/16 12:27 APTT 32 SECONDS (21-34) 11/24/16 12:27 - Constitutional Appears: Non-toxic, No Acute Distress - Head Exam Head Exam: ATRAUMATIC - ENT Exam ENT Exam: Mucous Membranes Moist - Respiratory Exam Respiratory Exam: Clear to Ausculation Bilateral. absent: Accessory Muscle Use , Rales, Rhonchi, Wheezes, Respiratory Distress - Cardiovascular Exam Cardiovascular Exam: REGULAR RHYTHM, +S1, +S2. absent: Gallop, Rubs, Murmur - GI/Abdominal Exam GI & Abdominal Exam: Soft, Normal Bowel Sounds. absent: Distended, Firm, Guarding, Rigid, Tenderness, Organomegaly - Extremities Exam Extremities Exam: absent: Pedal Edema, Tenderness - Neurological Exam Neurological Exam: Alert, Awake, Oriented x3 - Psychiatric Exam Psychiatric exam: Normal Affect, Normal Mood - Skin Skin Exam: Dry, Intact, Normal Color, Warm Assessment and Plan - Assessment and Plan (Free Text) Assessment: (1) TIA (transient ischemic attack) Neurology, Dr. Burris consulted---> Help appreciated Rule out possible TIA Lipid panle: -T -Cholesterol: 232 -LDL: 175 -HDL: 48 HgbA1c: 6.1 F/u TSH Imaging: CT Head: No intracranial mass, hemorrhage or evidence of acute infarct. MRI brain shows no acute changes MRA of neck was negative MRI of brain shows mild asymmetry of distal cavernous carotid segments of ICA right sided, artherosclerotic narrowing cannot be excluded Will check CTA of head and neck Medications: * Aspirin 81mg PO daily * Crestor 10mg PO QD * Lovenox 40mg SC QD (2) Hypertension Continue home medication: * Norvasc 10mg PO daily (3) Hypercholesterolemia Lipid Panel: -T -Cholesterol: 232 -LDL: 175 -HDL: 48 Medication: Crestor 10mg PO QD (4) Transaminitis AST/ALT: 43/53 Stable. Will check hepatitis panel (5) Glucose intolerance (impaired glucose tolerance) Hgba1c: 6.1 * Will need follow-up a1c in one year to avoid overt diabetes (6) Prophylactic measure Assessment and Plan: SCDs DVT ppx: Lovenox 40mg SC QD GI ppx: Protonix 40mg PO QD Heart healthy diet Neuro checks Case discussed with attending, Dr. Ghosh <Olaf Ghosh - Last Filed: 11/25/16 17:32> Objective - Vital Signs/Intake and Output Vital Signs (last 24 hours): Temp Pulse Resp BP Pulse Ox 97.4 F L 63 20 109/67 96 11/25/16 15:57 11/25/16 15:57 11/25/16 15:57 11/25/16 15:57 11/25/16 15:57 Intake and Output: 11/25/16 11/25/16 06:59 18:59 Intake Total 350 Balance 350 - Medications Medications: Current Medications Amlodipine Besylate (Norvasc) 10 mg PO DAILY [facility] Last Admin: 11/25/16 10:55 Dose: 10 mg Aspirin (Ecotrin) 81 mg PO DAILY [facility] Last Admin: 11/25/16 10:55 Dose: 81 mg Clopidogrel Bisulfate (Plavix) 75 mg PO DAILY [facility] Last Admin: 11/25/16 12:36 Dose: 75 mg Enoxaparin Sodium (Lovenox) 40 mg SC DAILY [facility] Last Admin: 11/25/16 10:56 Dose: 40 mg Famotidine (Pepcid) 20 mg PO BID [facility] Gabapentin (Neurontin) 300 mg PO DAILY [facility] Last Admin: 11/25/16 10:55 Dose: 300 mg Rosuvastatin Calcium (Crestor) 10 mg PO HS [facility] Last Admin: 11/24/16 21:41 Dose: 10 mg - Labs Labs: PT 10.2 SECONDS (9.7-12.2) 11/24/16 12:27 INR 0.9 11/24/16 12:27 APTT 32 SECONDS (21-34) 11/24/16 12:27 Attending/Attestation - Attestation I have personally seen and examined this patient.: Yes I have fully participated in the care of the patient.: Yes I have reviewed all pertinent clinical information, including history, physical exam and plan: Yes Notes (Text): 11/25/16 17:32 Patient was seen and examined at bedside Her symptoms of numbness and weakness and facial droop have completely resolved Neurology workup is in progress Neurology evaluation seen in appreciated I discussed the plan of care with the resident and agree with the current assessment and plan documented by the resident.
[2016-11-25] MEDS ORDERED: Iodixanol 320 mg/ml 150 ml Bottle IV ONE (20:36)
[2016-11-26 08:05] LABS: CHLORIDE 102 mmol/L (98-107)
[2016-11-26 08:06] LABS: BASO % 0.3 % (0.0-2.0); EOS # 0.2 K/uL (0.0-0.7); EOS % 2.4 % (0.0-4.0); HEMATOCRIT 40.8 % (34.0-47.0); LYMPH # 3.2 K/uL (1.0-4.3); MEAN CELL VOLUME 83.8 fL (81.0-99.0); MEAN CORPUSCULAR HEMOGLOBIN 27.7 pg (27.0-31.0); MEAN PLATELET VOLUME 7.6 fL (7.2-11.7); MONO # 0.5 K/uL (0.0-0.8); NRBC % 0.1 % (0.0-2.0); POTASSIUM 4.1 mmol/L (3.6-5.2); RED CELL DISTRIBUTION WIDTH 14.8 % (11.5-14.5); SODIUM 141 mmol/L (132-148); WHITE BLOOD COUNT 6.9 K/uL (4.8-10.8)
[2016-11-26 08:08] LABS: ALB/GLOB RATIO 1.2 (1.0-2.1); ALKALINE PHOSPHATASE 108 U/L (38-126); ALT/SGPT 58 U/L (9-52); AST/SGOT 42 U/L (14-36); BILIRUBIN,TOTAL 0.5 mg/dL (0.2-1.3); BLOOD UREA NITROGEN 19 mg/dL (7-17); CARBON DIOXIDE 25 mmol/L (22-30); GFR AFRICAN-AMERICAN > 60; TOTAL PROTEIN 6.9 g/dL (6.3-8.3)
[2016-11-26 08:09] LABS: CALCIUM 9.3 mg/dl (8.6-10.4); GLUCOSE,RANDOM 85 mg/dL (65-105)
[2016-11-26] MEDS: Enoxaparin 40 mg Syringe SC SCH (09:13)
--- NOTE | 2016-11-26 15:30 | CP.PCM.PN ---
<Vanesa Jackson - Last Filed: 11/26/16 15:19> Subjective - Date & Time of Evaluation Date of Evaluation: 11/26/16 Time of Evaluation: 15:19 - Subjective Subjective: PGY2 progress note for hospitalists Pt is seen and examined at bedside. No acute events overnight. Patient is resting comfortably. Denies having any HERR, weakness, tingling, numbness, CP, SOB, abd pain, N/V/D/C, f/C. Only c/o low back pain. 12 point ROS are negative except for the above mentioned. Objective - Vital Signs/Intake and Output Vital Signs (last 24 hours): Temp Pulse Resp BP Pulse Ox 98.1 F 66 20 125/75 96 11/26/16 09:04 11/26/16 12:08 11/26/16 09:04 11/26/16 09:04 11/26/16 09:04 Intake and Output: 11/26/16 11/26/16 06:59 18:59 Intake Total 240 Balance 240 - Medications Medications: Current Medications Amlodipine Besylate (Norvasc) 10 mg PO DAILY [facility] Last Admin: 11/26/16 09:12 Dose: 10 mg Aspirin (Ecotrin) 81 mg PO DAILY [facility] Last Admin: 11/26/16 09:13 Dose: 81 mg Clopidogrel Bisulfate (Plavix) 75 mg PO DAILY [facility] Last Admin: 11/26/16 09:13 Dose: 75 mg Enoxaparin Sodium (Lovenox) 40 mg SC DAILY [facility] Last Admin: 11/26/16 09:13 Dose: 40 mg Famotidine (Pepcid) 20 mg PO BID [facility] Last Admin: 11/26/16 09:12 Dose: 20 mg Gabapentin (Neurontin) 300 mg PO DAILY [facility] Last Admin: 11/26/16 09:12 Dose: 300 mg Rosuvastatin Calcium (Crestor) 10 mg PO HS [facility] Last Admin: 11/25/16 21:26 Dose: 10 mg - Labs Labs: 11/26/16 07:40 11/26/16 07:40 PT 10.2 SECONDS (9.7-12.2) 11/24/16 12:27 INR 0.9 11/24/16 12:27 APTT 32 SECONDS (21-34) 11/24/16 12:27 - Constitutional Appears: Non-toxic, No Acute Distress - Head Exam Head Exam: ATRAUMATIC - Eye Exam Eye Exam: EOMI - ENT Exam ENT Exam: Mucous Membranes Moist - Respiratory Exam Respiratory Exam: Clear to Ausculation Bilateral. absent: Accessory Muscle Use , Rales, Rhonchi, Wheezes - Cardiovascular Exam Cardiovascular Exam: REGULAR RHYTHM, +S1, +S2. absent: Gallop, Rubs, Murmur - GI/Abdominal Exam GI & Abdominal Exam: Soft, Normal Bowel Sounds. absent: Firm, Guarding, Rigid, Tenderness, Organomegaly - Extremities Exam Extremities Exam: absent: Pedal Edema, Tenderness - Neurological Exam Neurological Exam: Alert, Awake, Oriented x3 - Psychiatric Exam Psychiatric exam: Normal Affect, Normal Mood - Skin Skin Exam: Dry, Intact, Normal Color, Warm Assessment and Plan - Assessment and Plan (Free Text) Assessment: (1) TIA (transient ischemic attack) Neurology, Dr. Burris consulted---> Help appreciated Rule out possible TIA. Recommend getting CTA of head and neck to be done tomorrow Lipid panle: -T -Cholesterol: 232 -LDL: 175 -HDL: 48 HgbA1c: 6.1 TSh WNL Imaging: CT Head: No intracranial mass, hemorrhage or evidence of acute infarct. MRI brain shows no acute changes MRA of neck was negative MRI of brain shows mild asymmetry of distal cavernous carotid segments of ICA right sided, artherosclerotic narrowing cannot be excluded Will check CTA of head and neck Medications: * Aspirin 81mg PO daily * Crestor 10mg PO QD * Lovenox 40mg SC QD (2) Hypertension Continue home medication: * Norvasc 10mg PO daily (3) Hypercholesterolemia Lipid Panel: -T -Cholesterol: 232 -LDL: 175 -HDL: 48 Medication: Crestor 10mg PO QD (4) Transaminitis Stable. Will check hepatitis panel (5) Glucose intolerance (impaired glucose tolerance) Hgba1c: 6.1 * Will need follow-up a1c in one year to avoid overt diabetes (6) Prophylactic measure Assessment and Plan: SCDs DVT ppx: Lovenox 40mg SC QD GI ppx: Protonix 40mg PO QD Heart healthy diet Neuro checks Case discussed with attending, Dr. Ghosh <Olaf Ghosh - Last Filed: 11/26/16 16:54> Objective - Vital Signs/Intake and Output Vital Signs (last 24 hours): Temp Pulse Resp BP Pulse Ox 97.7 F 57 L 20 147/85 95 11/26/16 15:30 11/26/16 15:45 11/26/16 15:30 11/26/16 15:30 11/26/16 15:30 Intake and Output: 11/26/16 11/26/16 06:59 18:59 Intake Total 240 350 Balance 240 350 - Medications Medications: Current Medications Amlodipine Besylate (Norvasc) 10 mg PO DAILY [facility] Last Admin: 11/26/16 09:12 Dose: 10 mg Aspirin (Ecotrin) 81 mg PO DAILY [facility] Last Admin: 11/26/16 09:13 Dose: 81 mg Clopidogrel Bisulfate (Plavix) 75 mg PO DAILY [facility] Last Admin: 11/26/16 09:13 Dose: 75 mg Enoxaparin Sodium (Lovenox) 40 mg SC DAILY [facility] Last Admin: 11/26/16 09:13 Dose: 40 mg Famotidine (Pepcid) 20 mg PO BID [facility] Last Admin: 11/26/16 09:12 Dose: 20 mg Gabapentin (Neurontin) 300 mg PO DAILY [facility] Last Admin: 11/26/16 09:12 Dose: 300 mg Ibuprofen (Motrin Tab) 400 mg PO Q6 PRN PRN Reason: pain Rosuvastatin Calcium (Crestor) 10 mg PO HS [facility] Last Admin: 11/25/16 21:26 Dose: 10 mg Simethicone (Mylicon Liq) 40 mg PO QID PRN PRN Reason: gas - Labs Labs: 11/26/16 07:40 11/26/16 07:40 PT 10.2 SECONDS (9.7-12.2) 11/24/16 12:27 INR 0.9 11/24/16 12:27 APTT 32 SECONDS (21-34) 11/24/16 12:27 Attending/Attestation - Attestation I have personally seen and examined this patient.: Yes I have fully participated in the care of the patient.: Yes I have reviewed all pertinent clinical information, including history, physical exam and plan: Yes Notes (Text): 11/26/16 16:53 Patient was seen and examined at bedside Patient is resting comfortably Neurology workup in progress Awaiting CT angiogram of the head and neck Continue current medical management Discussed with the resident and agree with the assessment and plan documented by the resident.
[2016-11-26] MEDS ORDERED: Simethicone 40 mg/0.6 ml Liquid (30 ml) PO PRN (15:31)
[2016-11-27 07:52] LABS: BASO % 0.4 % (0.0-2.0); EOS # 0.2 K/uL (0.0-0.7); EOS % 2.1 % (0.0-4.0); HEMATOCRIT 42.5 % (34.0-47.0); LYMPH # 2.8 K/uL (1.0-4.3); LYMPH % 38.4 % (20.0-40.0); MEAN CELL VOLUME 84.7 fL (81.0-99.0); MEAN CORPUSCULAR HEMOGLOBIN 27.5 pg (27.0-31.0); MEAN CORPUSCULAR HGB CONC 32.5 g/dL (33.0-37.0); MEAN PLATELET VOLUME 7.8 fL (7.2-11.7); MONO # 0.6 K/uL (0.0-0.8); MONO % 7.8 % (0.0-10.0); NRBC % 0.1 % (0.0-2.0); RED CELL DISTRIBUTION WIDTH 14.6 % (11.5-14.5); WHITE BLOOD COUNT 7.4 K/uL (4.8-10.8)
[2016-11-27 07:58] LABS: CHLORIDE 103 mmol/L (98-107); POTASSIUM 4.1 mmol/L (3.6-5.2); SODIUM 140 mmol/L (132-148)
[2016-11-27 08:00] LABS: BILIRUBIN,TOTAL 0.5 mg/dL (0.2-1.3); CARBON DIOXIDE 23 mmol/L (22-30); GFR AFRICAN-AMERICAN > 60
[2016-11-27 08:01] LABS: ALB/GLOB RATIO 1.2 (1.0-2.1); ALKALINE PHOSPHATASE 105 U/L (38-126); ALT/SGPT 63 U/L (9-52); AST/SGOT 44 U/L (14-36); BLOOD UREA NITROGEN 15 mg/dL (7-17); GLUCOSE,RANDOM 85 mg/dL (65-105)
[2016-11-27] MEDS: Enoxaparin 40 mg Syringe SC SCH (09:01)
--- NOTE | 2016-11-27 11:15 | VASCLAB ---
PROCEDURE: HISTORY: TIA COMPARISON: None available. TECHNIQUE: Grayscale and duplex Doppler evaluation of the cervical carotid and vertebral arteries were performed. The common carotid, carotid bifurcations and cervical Internal Carotid Artery (ICA) and proximal External Carotid Artery (ECA) were evaluated. The vertebral arteries were evaluated for gross patency and flow direction. Report prepared by Jaimie Raphael Evelyne FINDINGS: RIGHT CAROTID ARTERIES: 1. Common Carotid Artery: No significant focal plaque formation of the right common carotid artery. Maximum Peak Systolic velocity: 78.9 cm/sec: End-diastolic velocity 11.6 cm/sec. 2. Carotid Bifurcation: No significant focal plaque formation. Maximum Peak Systolic velocity: 57.4 cm/sec: End-diastolic velocity 13.1 cm/sec. 3. Internal Carotid Artery: Plaque description: 3.1. Proximal Segment: Peak systolic velocity 53.7 cm/sec: End-diastolic velocity 13.1 cm/sec - % stenosis 0-15% 3.2. Middle Segment: Peak systolic velocity 61.6 cm/sec: End-diastolic velocity 18.0 cm/sec - % stenosis 0-15% 3.3. Distal Segment: Peak systolic velocity 71.2 cm/sec: End-diastolic velocity 19.0 cm/sec - % stenosis 0-15% 4. External Carotid Artery: No significant focal plaque formation. Peak systolic velocity 68.8 cm/sec 5. ICA/CCA Ratio: 0.9 LEFT CAROTID ARTERIES: 1. Common Carotid Artery: No significant focal plaque formation of the left common carotid artery. Maximum Peak Systolic velocity: 92.2 cm/sec: End-diastolic velocity 17.6 cm/sec. 2. Carotid Bifurcation: No significant focal plaque formation. Maximum Peak Systolic velocity: 63.8 cm/sec: End-diastolic velocity 13.8 Cm/sec. 3. Internal Carotid Artery: Plaque description: 3.1. Proximal Segment: Peak systolic velocity 62.2 cm/sec: End-diastolic velocity 15.5 cm/sec - % stenosis 0-15% 3.2. Middle Segment: Peak systolic velocity 74.0 cm/sec: End-diastolic velocity 25.7 cm/sec - % stenosis 0-15% 3.3. Distal Segment: Peak systolic velocity 41.1 cm/sec: End-diastolic velocity 13.1 cm/sec - % stenosis 0-15% 4. External Carotid Artery: No significant focal plaque formation. Peak systolic velocity 89.2 cm/sec 5. ICA/CCA Ratio: 0.9 VERTEBRAL ARTERIES: 1. Right Vertebral Artery: The right vertebral artery flow direction is antegrade. 2. Left Vertebral Artery: The left vertebral artery flow direction is antegrade. OTHER FINDINGS: 1. Right Brachial Blood pressure: mmHg. 2. Left Brachial Blood pressure: mmHg. IMPRESSION: RIGHT: Duplex scan does not suggest hemodynamically significant stenosis of the right extracranial carotid arteries. LEFT: Duplex scan does not suggest hemodynamically significant stenosis of the left extracranial carotid arteries.
[2016-11-27] MEDS ORDERED: Simethicone 40 mg/0.6 ml Liquid (30 ml) PO STA (11:40)
--- NOTE | 2016-11-27 12:09 | CP.PCM.PN ---
<Carrie Barbour V - Last Filed: 11/27/16 17:36> Objective - Vital Signs/Intake and Output Vital Signs (last 24 hours): Temp Pulse Resp BP Pulse Ox 97.6 F 68 20 118/66 96 11/27/16 15:56 11/27/16 15:56 11/27/16 15:56 11/27/16 15:56 11/27/16 15:56 Intake and Output: 11/27/16 11/27/16 06:59 18:59 Intake Total 240 Balance 240 - Medications Medications: Current Medications Amlodipine Besylate (Norvasc) 10 mg PO DAILY [facility] Last Admin: 11/27/16 09:01 Dose: 10 mg Aspirin (Ecotrin) 81 mg PO DAILY [facility] Last Admin: 11/27/16 09:01 Dose: 81 mg Clopidogrel Bisulfate (Plavix) 75 mg PO DAILY [facility] Last Admin: 11/27/16 09:01 Dose: 75 mg Enoxaparin Sodium (Lovenox) 40 mg SC DAILY [facility] Last Admin: 11/27/16 09:01 Dose: 40 mg Famotidine (Pepcid) 20 mg PO BID [facility] Last Admin: 11/27/16 09:01 Dose: 20 mg Gabapentin (Neurontin) 300 mg PO DAILY [facility] Last Admin: 11/27/16 09:01 Dose: 300 mg Ibuprofen (Motrin Tab) 400 mg PO Q6 PRN PRN Reason: pain Rosuvastatin Calcium (Crestor) 10 mg PO HS [facility] Last Admin: 11/26/16 21:19 Dose: 10 mg Simethicone (Mylicon Liq) 40 mg PO QID PRN PRN Reason: gas Last Admin: 11/26/16 17:23 Dose: 40 mg - Labs Labs: 11/27/16 07:03 11/27/16 07:03 PT 10.2 SECONDS (9.7-12.2) 11/24/16 12:27 INR 0.9 11/24/16 12:27 APTT 32 SECONDS (21-34) 11/24/16 12:27 Attending/Attestation - Attestation I have personally seen and examined this patient.: Yes I have fully participated in the care of the patient.: Yes I have reviewed all pertinent clinical information, including history, physical exam and plan: Yes Notes (Text): Patient seen, examined, and case discussed with tasha-time resident. Patient seen in the morning. Patient denies headache, denies change in vision, denies chest pain, denies shortness of breathe, denies constipation, denies diarrhea, denies urinary symptoms. patient has hernia which she follows dr. kumar? or nohelia (gi) from [facility]. Patient has had a recent colonoscopy and endoscopy cannot recall results. At time of exam, patient awaiting to complete CT head and neck given questionable stenosis on MRI brain Awaiting PT/OT eval Assessment/Plan (1) TIA (transient ischemic attack) Assessment and Plan: * Mild left side facial droop * Neurology, Dr. Burris consulted---> Help appreciated * Recommend getting CTA of head and neck pending * Lipid panel: T, Cholesterol: 232, LDL: 175, HDL: 48, HgbA1c: 6.1; TSh WNL * Imaging: * CT Head (11/24/16): No intracranial mass, hemorrhage or evidence of acute infarct. * MRI brain (11/25/16): no acute intracranial hemorrhage or infarct. 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 mild generalized volume loss. mild mucoperiosteal inflammatory changes right maxillary sinus * Cartoid doppler (11/27/16): no acute findings * MRA of neck was negative * MRI of brain (11/25/16) shows mild asymmetry of distal cavernous carotid segments of ICA right sided, artherosclerotic narrowing cannot be excluded; small flow related type artifact within this segement of the right cavernous cartoid artery, some localized atherosclerotic narrowing cannot be completely excluded. 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 No evidence of large aneurysm nor vascular malformation * Pending CTA of head and neck * Echocardiogram (11/25/16): borderline concentric left ventricular hypertrophy. left ventricle systolic function is normal. EF: >70%, abnormal relaxation Medications: * Aspirin 81mg PO daily and Plavix 75mg Po daily for 21 days, then Plavix indefinitely per neurology * Crestor 10mg PO qHS * Lovenox 40mg SC Qdaily (2) Hypertension Assessment and Plan: * Monitor vital signs and adjust accordingly * Norvasc 10mg PO daily (3) Hypercholesterolemia Assessment and Plan: * Lipid Panel: T, Cholesterol: 232, LDL: 175, HDL: 48 * Crestor 10mg PO QD (4) Transaminitis Assessment and Plan: * Hepatitis: negative * mild transaminitis (5) Glucose intolerance (impaired glucose tolerance) Assessment and Plan: * Hgba1c: 6.1-->Will need follow-up a1c in one year to avoid overt diabetes (6) Prophylactic measure Assessment and Plan: * SCDs * DVT ppx: Lovenox 40mg SC QDaily * GI ppx: Pepcid 20mg PO bid * Heart healthy diet * Neuro checks * pending PT and OT eval <Sharla Vidal - Last Filed: 11/27/16 19:08> Subjective - Date & Time of Evaluation Date of Evaluation: 11/27/16 Time of Evaluation: 07:00 - Subjective Subjective: PGY1- Medicine Note- Dr. Barbour's Service Patient seen and examined at bedside and in no acute distress. Patient complains of central abdominal pain and passing a lot of gas. Patient had 1 episode of watery diarrhea this morning. Patient denies headache, shortness of breath, chest pain, nausea, vomiting, or leg pain. Objective - Vital Signs/Intake and Output Vital Signs (last 24 hours): Temp Pulse Resp BP Pulse Ox 98.1 F 62 18 124/64 95 11/27/16 07:55 11/27/16 07:55 11/27/16 07:55 11/27/16 07:55 11/27/16 07:55 Intake and Output: 11/27/16 11/27/16 06:59 18:59 Intake Total 240 Balance 240 - Medications Medications: Current Medications Amlodipine Besylate (Norvasc) 10 mg PO DAILY [facility] Last Admin: 11/27/16 09:01 Dose: 10 mg Aspirin (Ecotrin) 81 mg PO DAILY [facility] Last Admin: 11/27/16 09:01 Dose: 81 mg Clopidogrel Bisulfate (Plavix) 75 mg PO DAILY [facility] Last Admin: 11/27/16 09:01 Dose: 75 mg Enoxaparin Sodium (Lovenox) 40 mg SC DAILY [facility] Last Admin: 11/27/16 09:01 Dose: 40 mg Famotidine (Pepcid) 20 mg PO BID [facility] Last Admin: 11/27/16 09:01 Dose: 20 mg Gabapentin (Neurontin) 300 mg PO DAILY [facility] Last Admin: 11/27/16 09:01 Dose: 300 mg Ibuprofen (Motrin Tab) 400 mg PO Q6 PRN PRN Reason: pain Rosuvastatin Calcium (Crestor) 10 mg PO HS [facility] Last Admin: 11/26/16 21:19 Dose: 10 mg Simethicone (Mylicon Liq) 40 mg PO QID PRN PRN Reason: gas Last Admin: 11/26/16 17:23 Dose: 40 mg - Labs Labs: 11/27/16 07:03 11/27/16 07:03 PT 10.2 SECONDS (9.7-12.2) 11/24/16 12:27 INR 0.9 11/24/16 12:27 APTT 32 SECONDS (21-34) 11/24/16 12:27 - Constitutional Appears: Non-toxic, No Acute Distress - Head Exam Head Exam: ATRAUMATIC, NORMAL INSPECTION, NORMOCEPHALIC - Eye Exam Eye Exam: EOMI, Normal appearance, PERRL - ENT Exam ENT Exam: Mucous Membranes Moist, Normal Exam - Neck Exam Neck Exam: Full ROM, Normal Inspection. absent: Lymphadenopathy - Respiratory Exam Respiratory Exam: Clear to Ausculation Bilateral, NORMAL BREATHING PATTERN. absent: Rales, Rhonchi, Wheezes, Respiratory Distress, Stridor - Cardiovascular Exam Cardiovascular Exam: REGULAR RHYTHM, RRR. absent: Gallop, Rubs, Murmur - GI/Abdominal Exam GI & Abdominal Exam: Soft, Tenderness, Normal Bowel Sounds. absent: Firm, Guarding, Rigid Additional comments: left upper quadrant abdominal hernia that is reducible - Extremities Exam Extremities Exam: Full ROM, Normal Inspection. absent: Pedal Edema - Back Exam Back Exam: NORMAL INSPECTION. absent: rash noted - Neurological Exam Neurological Exam: Alert, Awake, Oriented x3 Neuro motor strength exam: Left Upper Extremity: 4, Right Upper Extremity: 4 ( squeezing weaker in right hand then left), Left Lower Extremity: 4, Right Lower Extremity: 4 Additional comments: right sided facial droop negative babinksi's b/l - Psychiatric Exam Psychiatric exam: Normal Affect, Normal Mood - Skin Skin Exam: Intact, Normal Color, Warm Assessment and Plan - Assessment and Plan (Free Text) Assessment: (1) TIA (transient ischemic attack) Neurology, Dr. Burris consulted---> Help appreciated Rule out possible TIA. f/u CTA brain and neck Lipid panel: -T -Cholesterol: 232 -LDL: 175 -HDL: 48 HgbA1c: 6.1 TSh WNL Imaging: CT Head: No intracranial mass, hemorrhage or evidence of acute infarct. MRI brain shows no acute changes MRA of neck was negative MRI of brain shows mild asymmetry of distal cavernous carotid segments of ICA right sided, artherosclerotic narrowing cannot be excluded Medications: * Aspirin 81mg PO daily * Crestor 10mg PO QD * Lovenox 40mg SC QD (2) Hypertension Continue home medication: * Norvasc 10mg PO daily (3) Hypercholesterolemia Lipid Panel: -T -Cholesterol: 232 -LDL: 175 -HDL: 48 Medication: Crestor 10mg PO QD (4) Transaminitis Stable. AST:44, ALT: 63 on 11/27 Hep A, B, C negative (5) Glucose intolerance (impaired glucose tolerance) Hgba1c: 6.1 * Will need follow-up a1c in one year to avoid overt diabetes (6) Abdominal pain secondary to gas simethicone 40 mg PRN (7) Prophylactic measure SCDs DVT ppx: Lovenox 40mg SC QD GI ppx: Protonix 40mg PO QD Heart healthy diet Neuro checks
--- NOTE | 2016-11-27 12:31 | CARD ---
APPROVED REPORT EKG Measurement Heart [id number] <Conclusion> Normal sinus rhythm Cannot rule out Anterior infarct, age undetermined Abnormal ECG
[2016-11-27] MEDS ORDERED: Iodixanol 320 MG/ML 100 ML BOTTLE IV ONE (17:00)
--- NOTE | 2016-11-27 23:49 | CT ---
EXAM: CT Angiography Head With Intravenous Contrast CLINICAL HISTORY: 66 years old, female; Signs and symptoms; Weakness; Additional info: Mra questionable stenosis finding in [place] TECHNIQUE: Axial computed tomographic angiography images of the head with intravenous contrast using CT angiography protocol. This CT exam was performed using one or more of the following dose reduction techniques: automated exposure control, adjustment of the mA and/or kV according to patient size, and/or use of iterative reconstruction technique. MIP reconstructed images were created and reviewed. Coronal and sagittal reformatted images were created and reviewed. CONTRAST: 100 mL of visipaque 320 administered intravenously. COMPARISON: No relevant prior studies available. FINDINGS: Right internal carotid artery: No acute findings. Intracranial segment is patent with no significant stenosis. No aneurysm. Right anterior cerebral artery: No occlusion or significant stenosis. No aneurysm. Right middle cerebral artery: No occlusion or significant stenosis. No aneurysm. Right posterior cerebral artery: No occlusion or significant stenosis. No aneurysm. Right vertebral artery: Unremarkable as visualized. Left internal carotid artery: No acute findings. Intracranial segment is patent with no significant stenosis. No aneurysm. Left anterior cerebral artery: No occlusion or significant stenosis. No aneurysm. Left middle cerebral artery: No occlusion or significant stenosis. No aneurysm. Left posterior cerebral artery: No occlusion or significant stenosis. No aneurysm. Left vertebral artery: Unremarkable as visualized. Basilar artery: No occlusion or significant stenosis. No aneurysm. IMPRESSION: No hemodynamically significant stenosis, as detailed above. EXAM: CT Angiography Neck With Intravenous Contrast CLINICAL HISTORY: 66 years old, female; Signs and symptoms; Weakness; Additional info: Mra questionable stenosis finding in [place] TECHNIQUE: Axial computed tomographic angiography images of the neck with intravenous contrast using CT angiography protocol. 3D and MIP reconstructed images were created and reviewed. CONTRAST: 100 mL of visipaque 320 administered intravenously. COMPARISON: No relevant prior studies available. FINDINGS: VASCULATURE: Right common carotid artery: No significant stenosis. No dissection or occlusion. Right internal carotid artery: Extracranial segment is patent with no significant stenosis. No dissection or occlusion. Right external carotid artery: No occlusion. Right vertebral artery: No significant stenosis. No dissection or occlusion. Left common carotid artery: . No significant stenosis. No dissection or occlusion. Left internal carotid artery: Extracranial segment is patent with no significant stenosis. No dissection or occlusion. The proximal portion of the internal carotid artery demonstrates a retropharyngeal course. Left external carotid artery: No occlusion. Left vertebral artery: No significant stenosis. No dissection or occlusion. NECK: Bones/joints: No acute fracture. No dislocation. Soft tissues: Unremarkable as visualized. No mass. CAROTID STENOSIS REFERENCE USING NASCET CRITERIA: % ICA stenosis = (1 - narrowest ICA diameter/diameter of distal cervical ICA) x 100. Mild - <50% stenosis. Moderate - 50-69% stenosis. Severe - 70-94% stenosis. Near occlusion - 95-99% stenosis. Occluded - 100% stenosis. IMPRESSION: No hemodynamically significant stenosis within the bilateral internal carotid arteries. The proximal portion of the left internal carotid artery demonstrates a retropharyngeal course.
[2016-11-28 04:57] VITALS: O2SAT 98
[2016-11-28 08:24] LABS: BASO % 0.4 % (0.0-2.0); EOS # 0.1 K/uL (0.0-0.7); EOS % 1.6 % (0.0-4.0); HEMATOCRIT 42.8 % (34.0-47.0); LYMPH # 2.5 K/uL (1.0-4.3); LYMPH % 32.5 % (20.0-40.0); MEAN CELL VOLUME 83.9 fL (81.0-99.0); MEAN CORPUSCULAR HEMOGLOBIN 27.6 pg (27.0-31.0); MEAN CORPUSCULAR HGB CONC 32.9 g/dL (33.0-37.0); MEAN PLATELET VOLUME 7.6 fL (7.2-11.7); MONO # 0.6 K/uL (0.0-0.8); MONO % 7.5 % (0.0-10.0); RED CELL DISTRIBUTION WIDTH 14.8 % (11.5-14.5); WHITE BLOOD COUNT 7.8 K/uL (4.8-10.8)
[2016-11-28 08:34] LABS: CHLORIDE 102 mmol/L (98-107); POTASSIUM 4.4 mmol/L (3.6-5.2); SODIUM 141 mmol/L (132-148)
[2016-11-28 08:36] LABS: GFR AFRICAN-AMERICAN > 60
[2016-11-28 08:37] LABS: ALB/GLOB RATIO 1.2 (1.0-2.1); ALKALINE PHOSPHATASE 112 U/L (38-126); ALT/SGPT 71 U/L (9-52); AST/SGOT 64 U/L (14-36); BILIRUBIN,TOTAL 0.5 mg/dL (0.2-1.3); BLOOD UREA NITROGEN 18 mg/dL (7-17); CALCIUM 9.5 mg/dl (8.6-10.4); CARBON DIOXIDE 22 mmol/L (22-30); GLUCOSE,RANDOM 92 mg/dL (65-105); TOTAL PROTEIN 7.4 g/dL (6.3-8.3)
[2016-11-28] MEDS: Enoxaparin 40 mg Syringe SC SCH (09:22)
--- NOTE | 2016-11-28 11:36 | CP.PCM.PN ---
Subjective - Date & Time of Evaluation Date of Evaluation: 11/28/16 Time of Evaluation: 07:00 - Subjective Subjective: PGY1 - Medicine Note- Dr. Krishnan's Service Patient seen and examined at bedise and in no acute distress. Patient says she has some left neck stiffness and pain over night. Patient also complains of left sided low back pain that radiates into the buttock and down the left. Patient says she has had no more diarrhea since yesterday and is no longer having abdominal pain. Patient denies headache, shortness of breath, chest pain , abdominal pain, nausea, vomiting, or constipation. Objective - Vital Signs/Intake and Output Vital Signs (last 24 hours): Temp Pulse Resp BP Pulse Ox 98.3 F 65 18 127/61 98 11/28/16 07:45 11/28/16 07:45 11/28/16 07:45 11/28/16 07:45 11/28/16 07:45 Intake and Output: 11/28/16 11/28/16 06:59 18:59 Intake Total 10 Balance 10 - Medications Medications: Current Medications Amlodipine Besylate (Norvasc) 10 mg PO DAILY [facility] Last Admin: 11/28/16 09:22 Dose: 10 mg Aspirin (Ecotrin) 81 mg PO DAILY [facility] Last Admin: 11/28/16 09:22 Dose: 81 mg Clopidogrel Bisulfate (Plavix) 75 mg PO DAILY [facility] Last Admin: 11/28/16 09:22 Dose: 75 mg Enoxaparin Sodium (Lovenox) 40 mg SC DAILY [facility] Last Admin: 11/28/16 09:22 Dose: 40 mg Famotidine (Pepcid) 20 mg PO BID [facility] Last Admin: 11/28/16 09:22 Dose: 20 mg Gabapentin (Neurontin) 300 mg PO DAILY [facility] Last Admin: 11/28/16 09:22 Dose: 300 mg Ibuprofen (Motrin Tab) 400 mg PO Q6 PRN PRN Reason: pain Rosuvastatin Calcium (Crestor) 10 mg PO HS [facility] Last Admin: 11/27/16 22:03 Dose: 10 mg Simethicone (Mylicon Liq) 40 mg PO QID PRN PRN Reason: gas Last Admin: 11/26/16 17:23 Dose: 40 mg - Labs Labs: 11/28/16 08:19 11/28/16 08:19 PT 10.2 SECONDS (9.7-12.2) 11/24/16 12:27 INR 0.9 11/24/16 12:27 APTT 32 SECONDS (21-34) 11/24/16 12:27 - Constitutional Appears: Well, Non-toxic, No Acute Distress - Head Exam Head Exam: ATRAUMATIC, NORMAL INSPECTION, NORMOCEPHALIC - Eye Exam Eye Exam: EOMI, Normal appearance, PERRL - ENT Exam ENT Exam: Mucous Membranes Moist, Normal Exam - Neck Exam Neck Exam: Full ROM, Normal Inspection. absent: Lymphadenopathy - Respiratory Exam Respiratory Exam: Clear to Ausculation Bilateral, NORMAL BREATHING PATTERN. absent: Rales, Rhonchi, Wheezes, Respiratory Distress, Stridor - Cardiovascular Exam Cardiovascular Exam: REGULAR RHYTHM, RRR. absent: Gallop, Rubs, Murmur - GI/Abdominal Exam GI & Abdominal Exam: Soft, Normal Bowel Sounds. absent: Distended, Firm, Guarding, Rigid - Extremities Exam Extremities Exam: Full ROM, Normal Inspection. absent: Pedal Edema, Tenderness - Back Exam Back Exam: NORMAL INSPECTION. absent: rash noted - Neurological Exam Neurological Exam: Alert, Awake, CN II-XII Intact, Oriented x3 Neuro motor strength exam: Left Upper Extremity: 4, Right Upper Extremity: 4, Left Lower Extremity: 4, Right Lower Extremity: 4 Additional comments: left sided facial droop negative babinski's - Psychiatric Exam Psychiatric exam: Normal Affect, Normal Mood - Skin Skin Exam: Intact, Normal Color, Warm Assessment and Plan - Assessment and Plan (Free Text) Assessment: (1) TIA (transient ischemic attack) Neurology, Dr. Burris consulted---> Help appreciated Rule out possible TIA. CTA brain and neck: no hemodynamically significant stenosis within the bilateral internal carotid arteries. Proximal portion of the left internal carotid artery demonstrates a retropharyngeal course. Lipid panel: -T -Cholesterol: 232 -LDL: 175 -HDL: 48 HgbA1c: 6.1 TSh WNL Imaging: CT Head: No intracranial mass, hemorrhage or evidence of acute infarct. MRI brain shows no acute changes MRA of neck was negative MRI of brain shows mild asymmetry of distal cavernous carotid segments of ICA right sided, artherosclerotic narrowing cannot be excluded Medications: * Aspirin 81mg PO daily * Crestor 10mg PO QD * Lovenox 40mg SC QD (2) Hypertension Continue home medication: * Norvasc 10mg PO daily (3) Hypercholesterolemia Lipid Panel: -T -Cholesterol: 232 -LDL: 175 -HDL: 48 Medication: Crestor 10mg PO QD (4) Transaminitis Stable. AST:44, ALT: 63 on 11/27 Hep A, B, C negative (5) Glucose intolerance (impaired glucose tolerance) Hgba1c: 6.1 * Will need follow-up a1c in one year to avoid overt diabetes (6) Abdominal pain secondary to gas simethicone 40 mg PRN (7) Prophylactic measure SCDs DVT ppx: Lovenox 40mg SC QD GI ppx: Protonix 40mg PO QD Heart healthy diet Neuro checks
--- NOTE | 2016-11-28 15:54 | CP.PCM.DIS ---
<Sharla Vidal - Last Filed: 11/28/16 16:54> Provider - Provider Date of Admission: 11/25/16 10:15 Attending physician: Olaf Ghosh MD Consults: Dr. Burris Time Spent in preparation of Discharge (in minutes): 45 Diagnosis - Discharge Diagnosis (1) Paresthesia Status: Resolved Comment: please see summary for details (2) Hypertension Status: Acute Comment: please see summary for details (3) Hypercholesterolemia Status: Acute Comment: please see summary for details (4) Glucose intolerance (impaired glucose tolerance) Status: Acute Comment: will need HgA1C checked in 1 year to avoid overt diabetes Hospital Course - Lab Results Lab Results: Most Recent Lab Values WBC 7.8 K/uL (4.8-10.8) 11/28/16 08:19 RBC 5.10 Mil/uL (3.80-5.20) 11/28/16 08:19 Hgb 14.0 g/dL (11.0-16.0) 11/28/16 08:19 Hct 42.8 % (34.0-47.0) 11/28/16 08:19 MCV 83.9 fL (81.0-99.0) 11/28/16 08:19 MCH 27.6 pg (27.0-31.0) 11/28/16 08:19 MCHC 32.9 g/dL (33.0-37.0) L 11/28/16 08:19 RDW 14.8 % (11.5-14.5) H 11/28/16 08:19 Plt Count 415 K/uL (130-400) H 11/28/16 08:19 MPV 7.6 fL (7.2-11.7) 11/28/16 08:19 Neut % (Auto) 58.0 % (50.0-75.0) 11/28/16 08:19 Lymph % (Auto) 32.5 % (20.0-40.0) 11/28/16 08:19 [place] % (Auto) 7.5 % (0.0-10.0) 11/28/16 08:19 Eos % (Auto) 1.6 % (0.0-4.0) 11/28/16 08:19 Baso % (Auto) 0.4 % (0.0-2.0) 11/28/16 08:19 Neut # 4.5 K/uL (1.8-7.0) 11/28/16 08:19 Lymph # 2.5 K/uL (1.0-4.3) 11/28/16 08:19 [place] # 0.6 K/uL (0.0-0.8) 11/28/16 08:19 Eos # 0.1 K/uL (0.0-0.7) 11/28/16 08:19 Baso # 0.0 K/uL (0.0-0.2) 11/28/16 08:19 PT 10.2 SECONDS (9.7-12.2) 11/24/16 12:27 INR 0.9 11/24/16 12:27 APTT 32 SECONDS (21-34) 11/24/16 12:27 Sodium 141 mmol/L (132-148) 11/28/16 08:19 Potassium 4.4 mmol/L (3.6-5.2) 11/28/16 08:19 Chloride 102 mmol/L (98-107) 11/28/16 08:19 Carbon Dioxide 22 mmol/L (22-30) 11/28/16 08:19 Anion Gap 21 (10-20) H 11/28/16 08:19 BUN 18 mg/dL (7-17) H 11/28/16 08:19 Creatinine 0.6 MG/DL (0.7-1.2) L 11/28/16 08:19 Est GFR ( Amer) > 60 11/28/16 08:19 Est GFR (Non-Af Amer) > 60 11/28/16 08:19 Random Glucose 92 mg/dL (65-105) 11/28/16 08:19 Hemoglobin A1c 6.1 % (4.2-6.5) 11/24/16 12:27 Calcium 9.5 mg/dl (8.6-10.4) 11/28/16 08:19 Phosphorus 4.1 mg/dL (2.5-4.5) 11/25/16 08:01 Magnesium 2.1 mg/dL (1.6-2.3) 11/25/16 08:01 Total Bilirubin 0.5 mg/dL (0.2-1.3) 11/28/16 08:19 AST 64 U/L (14-36) H D 11/28/16 08:19 ALT 71 U/L (9-52) H 11/28/16 08:19 Alkaline Phosphatase 112 U/L (38-126) 11/28/16 08:19 Total Creatine Kinase 93 U/L (30-135) 11/24/16 12:27 CK-MB (Mass) 0.70 ng/mL (0.0-3.38) 11/24/16 12:27 Troponin I, Quant < 0.0120 ng/mL (0.00-0.120) 11/24/16 12:27 Total Protein 7.4 g/dL (6.3-8.3) 11/28/16 08:19 Albumin 4.0 g/dL (3.5-5.0) 11/28/16 08:19 Globulin 3.4 gm/dL (2.2-3.9) 11/28/16 08:19 Albumin/Globulin Ratio 1.2 (1.0-2.1) 11/28/16 08:19 Triglycerides 138 mg/dL (0-149) 11/24/16 12:27 Cholesterol 232 mg/dL (0-199) H 11/24/16 12:27 LDL Cholesterol Direct 175 mg/dL (0-129) H 11/24/16 12:27 HDL Cholesterol 48 mg/dL (30-70) 11/24/16 12:27 TSH 3rd Generation 1.57 mIU/L (0.46-4.68) 11/25/16 08:01 Urine Color Straw (YELLOW) 11/24/16 12:39 Urine Clarity Clear (Clear) 11/24/16 12:39 Urine pH 6.0 (5.0-8.0) 11/24/16 12:39 Ur Specific [place] 1.010 (1.003-1.030) 11/24/16 12:39 Urine Protein Negative mg/dL (NEGATIVE) 11/24/16 12:39 Urine Glucose (UA) Normal mg/dL (Normal) 11/24/16 12:39 Urine Ketones Negative mg/dL (NEGATIVE) 11/24/16 12:39 Urine Blood Negative (NEGATIVE) 11/24/16 12:39 Urine Nitrate Negative (NEGATIVE) 11/24/16 12:39 Urine Bilirubin Negative (NEGATIVE) 11/24/16 12:39 Urine Urobilinogen Normal mg/dL (0.2-1.0) 11/24/16 12:39 Ur Leukocyte Esterase 1+ Quinn/uL (Negative) H 11/24/16 12:39 Urine WBC (Auto) 3 /hpf (0-5) 11/24/16 12:39 Urine RBC (Auto) < 1 /hpf (0-3) 11/24/16 12:39 Ur Squamous Epith Cells 4 /hpf (0-5) 11/24/16 12:39 Urine Bacteria Rare (<OCC) 11/24/16 12:39 Hepatitis A IgM Ab Negative (NEGATIVE) 11/26/16 07:40 Hep Bs Antigen Negative (NEGATIVE) 11/26/16 07:40 Hep B Core IgM Ab Negative (NEGATIVE) 11/26/16 07:40 Hepatitis C Antibody Negative (NEGATIVE) 11/26/16 07:40 - Hospital Course Hospital Course: "CC: Headache and Left-sided facial numbness HPI: Patient is a 65 year old female with past medical history of hypertension, high cholesterol, hemorrhoids and hernias, who presents to the ED complaining of numbness in the top of her head/back of her neck and left side of face which she first noticed this morning (11/24/2016) around 6:30AM. Patient states that she noticed left facial droop. Patient was at her PCP, who advised her to come to the ED. Patient states she experienced a similar episode a few years ago that resolved on its own. During the episode, patient states she was diaphoretic, dizzy, nauseous and felt generally weak but denies vomiting. Patient reports that she had a sore throat earlier this week, which has since resolved. In the ED, she complains of left lower extremity weakness, SOB and a frontal headache." Patient admitted to hospital for TIA workup which was negative. Imaging: CT Head (11/24/16): No intracranial mass, hemorrhage or evidence of acute infarct. MRI brain (11/24/16): no acute intracranial hemorrhage or infarct. 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 mild generalized volume loss. mild mucoperiosteal inflammatory changes right maxillary sinus Cartoid doppler (11/24/16): no acute findings MRA of neck (11/24/16) was negative MRA of Head (11/24/16) shows mild asymmetry of distal cavernous carotid segments of ICA right sided, artherosclerotic narrowing cannot be excluded; small flow related type artifact within this segement of the right cavernous cartoid artery , some localized atherosclerotic narrowing cannot be completely excluded. 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 No evidence of large aneurysm nor vascular malformatio Echocardiogram (11/24/16): borderline concentric left ventricular hypertrophy. left ventricle systolic function is normal. EF: >70%, abnormal relaxation Head/ Neck CTA (11/26/16): No hemodynamically significant stenosis within the bilateral internal carotid arteries. Proximal portion of the left internal carotid artery demonstrates a retropharyngeal course. Dr. Burris (neurology) saw patient and started her on Aspirin 81 mg, Plavix 75mg , Crestor 10mg. Patient's numbness and tingling on head and left side of face resolved. Patient had no headache. Patient has mild left sided facial droop that is improving. Patient has no complaints. This is a summary of the patient's hospital course. Please see chart for full details. Additional Instructions: Patient stable for discharge as per Dr. Krishnan. Patient should follow up with Dr. Burris (neurology) within 2-3 weeks as an outpatient. Patient to take aspirin for a total of 21 days. Patient should continue Aspirin as outpatient for 17 more days. Patient to continue Plavix 75mg. Patient to also start taking Crestor 10 mg po at night. Patient should continue home medications: amlodipine 10 mg PO daily, Gabapentin 300 mg po daily, Omeprazole 20 mg po daily. Patient should return to Emergency Department Immediately if symptoms worsen or return. Instructions discussed with patient who understands and agrees. Discharge Exam - Head Exam Head Exam: ATRAUMATIC, NORMAL INSPECTION, NORMOCEPHALIC - Eye Exam Eye Exam: EOMI, Normal appearance, PERRL Pupil Exam: NORMAL ACCOMODATION, PERRL - ENT Exam ENT Exam: Mucous Membranes Moist - Neck Exam Neck exam: Full Rom - Respiratory Exam Respiratory Exam: Clear to PA & Lateral, NORMAL BREATHING PATTERN, UNREMARKABLE - Cardiovascular Exam Cardiovascular Exam: REGULAR RHYTHM, RRR. absent: Diastolic murmur, Gallop, Rubs, Systolic Murmur - GI/Abdominal Exam GI & Abdominal Exam: Normal Bowel Sounds, Unremarkable. absent: Firm, Guarding Additional comments: left upper quadrant hernia that is reducible - Extremities Exam Extremities exam: full ROM, normal inspection - Back Exam Back exam: NORMAL INSPECTION - Neurological Exam Neurological exam: Alert, CN II-XII Intact, Oriented x3 - Psychiatric Exam Psychiatric exam: Normal Affect, Normal Mood - Skin Skin Exam: Intact, Normal Color, Warm Discharge Plan - Discharge Medications Prescriptions: Omeprazole 20 mg PO DAILY #30 - Follow Up Plan Condition: FAIR Disposition: HOME/ ROUTINE Instructions: Aspirin (By mouth), Omeprazole (By mouth), Gabapentin (By mouth) , Amlodipine (By mouth), Clopidogrel (By mouth), Rosuvastatin (By mouth), Transient Ischemic Attack (DC), Heart Healthy Diet (DC) Additional Instructions: Patient stable for discharge as per Dr. Krishnan. Patient should follow up with Dr. Burris (neurology) within 2-3 weeks as an outpatient. Patient to take aspirin for a total of 21 days. Patient should continue Aspirin as outpatient for 17 more days. Patient to continue Plavix 75mg. Patient to also start taking Crestor 10 mg po at night. Patient should continue home medications: amlodipine 10 mg PO daily, Gabapentin 300 mg po daily, Omeprazole 20 mg po daily. Patient should return to Emergency Department Immediately if symptoms worsen or return. Instructions discussed with patient who understands and agrees. Referrals: Dallin Burris MD [Staff Provider] - ([phone]) <Juan Krishnan - Last Filed: 01/02/17 12:37> Provider - Provider Date of Admission: 11/25/16 10:15 Attending physician: Olaf Ghosh MD Hospital Course - Lab Results Lab Results: Most Recent Lab Values WBC 7.8 K/uL (4.8-10.8) 11/28/16 08:19 RBC 5.10 Mil/uL (3.80-5.20) 11/28/16 08:19 Hgb 14.0 g/dL (11.0-16.0) 11/28/16 08:19 Hct 42.8 % (34.0-47.0) 11/28/16 08:19 MCV 83.9 fL (81.0-99.0) 11/28/16 08:19 MCH 27.6 pg (27.0-31.0) 11/28/16 08:19 MCHC 32.9 g/dL (33.0-37.0) L 11/28/16 08:19 RDW 14.8 % (11.5-14.5) H 11/28/16 08:19 Plt Count 415 K/uL (130-400) H 11/28/16 08:19 MPV 7.6 fL (7.2-11.7) 11/28/16 08:19 Neut % (Auto) 58.0 % (50.0-75.0) 11/28/16 08:19 Lymph % (Auto) 32.5 % (20.0-40.0) 11/28/16 08:19 [place] % (Auto) 7.5 % (0.0-10.0) 11/28/16 08:19 Eos % (Auto) 1.6 % (0.0-4.0) 11/28/16 08:19 Baso % (Auto) 0.4 % (0.0-2.0) 11/28/16 08:19 Neut # 4.5 K/uL (1.8-7.0) 11/28/16 08:19 Lymph # 2.5 K/uL (1.0-4.3) 11/28/16 08:19 [place] # 0.6 K/uL (0.0-0.8) 11/28/16 08:19 Eos # 0.1 K/uL (0.0-0.7) 11/28/16 08:19 Baso # 0.0 K/uL (0.0-0.2) 11/28/16 08:19 PT 10.2 SECONDS (9.7-12.2) 11/24/16 12:27 INR 0.9 11/24/16 12:27 APTT 32 SECONDS (21-34) 11/24/16 12:27 Sodium 141 mmol/L (132-148) 11/28/16 08:19 Potassium 4.4 mmol/L (3.6-5.2) 11/28/16 08:19 Chloride 102 mmol/L (98-107) 11/28/16 08:19 Carbon Dioxide 22 mmol/L (22-30) 11/28/16 08:19 Anion Gap 21 (10-20) H 11/28/16 08:19 BUN 18 mg/dL (7-17) H 11/28/16 08:19 Creatinine 0.6 MG/DL (0.7-1.2) L 11/28/16 08:19 Est GFR ( Amer) > 60 11/28/16 08:19 Est GFR (Non-Af Amer) > 60 11/28/16 08:19 Random Glucose 92 mg/dL (65-105) 11/28/16 08:19 Hemoglobin A1c 6.1 % (4.2-6.5) 11/24/16 12:27 Calcium 9.5 mg/dl (8.6-10.4) 11/28/16 08:19 Phosphorus 4.1 mg/dL (2.5-4.5) 11/25/16 08:01 Magnesium 2.1 mg/dL (1.6-2.3) 11/25/16 08:01 Total Bilirubin 0.5 mg/dL (0.2-1.3) 11/28/16 08:19 AST 64 U/L (14-36) H D 11/28/16 08:19 ALT 71 U/L (9-52) H 11/28/16 08:19 Alkaline Phosphatase 112 U/L (38-126) 11/28/16 08:19 Total Creatine Kinase 93 U/L (30-135) 11/24/16 12:27 CK-MB (Mass) 0.70 ng/mL (0.0-3.38) 11/24/16 12:27 Troponin I, Quant < 0.0120 ng/mL (0.00-0.120) 11/24/16 12:27 Total Protein 7.4 g/dL (6.3-8.3) 11/28/16 08:19 Albumin 4.0 g/dL (3.5-5.0) 11/28/16 08:19 Globulin 3.4 gm/dL (2.2-3.9) 11/28/16 08:19 Albumin/Globulin Ratio 1.2 (1.0-2.1) 11/28/16 08:19 Triglycerides 138 mg/dL (0-149) 11/24/16 12:27 Cholesterol 232 mg/dL (0-199) H 11/24/16 12:27 LDL Cholesterol Direct 175 mg/dL (0-129) H 11/24/16 12:27 HDL Cholesterol 48 mg/dL (30-70) 11/24/16 12:27 TSH 3rd Generation 1.57 mIU/L (0.46-4.68) 11/25/16 08:01 Urine Color Straw (YELLOW) 11/24/16 12:39 Urine Clarity Clear (Clear) 11/24/16 12:39 Urine pH 6.0 (5.0-8.0) 11/24/16 12:39 Ur Specific [place] 1.010 (1.003-1.030) 11/24/16 12:39 Urine Protein Negative mg/dL (NEGATIVE) 11/24/16 12:39 Urine Glucose (UA) Normal mg/dL (Normal) 11/24/16 12:39 Urine Ketones Negative mg/dL (NEGATIVE) 11/24/16 12:39 Urine Blood Negative (NEGATIVE) 11/24/16 12:39 Urine Nitrate Negative (NEGATIVE) 11/24/16 12:39 Urine Bilirubin Negative (NEGATIVE) 11/24/16 12:39 Urine Urobilinogen Normal mg/dL (0.2-1.0) 11/24/16 12:39 Ur Leukocyte Esterase 1+ Quinn/uL (Negative) H 11/24/16 12:39 Urine WBC (Auto) 3 /hpf (0-5) 11/24/16 12:39 Urine RBC (Auto) < 1 /hpf (0-3) 11/24/16 12:39 Ur Squamous Epith Cells 4 /hpf (0-5) 11/24/16 12:39 Urine Bacteria Rare (<OCC) 11/24/16 12:39 Hepatitis A IgM Ab Negative (NEGATIVE) 11/26/16 07:40 Hep Bs Antigen Negative (NEGATIVE) 11/26/16 07:40 Hep B Core IgM Ab Negative (NEGATIVE) 11/26/16 07:40 Hepatitis C Antibody Negative (NEGATIVE) 11/26/16 07:40 Attending/Attestation - Attestation I have personally seen and examined this patient.: Yes I have fully participated in the care of the patient.: Yes I have reviewed all pertinent clinical information, including history, physical exam and plan: Yes Notes (Text): Complicated migrane
[2016-11-28 16:02] VITALS: BP 121/71; RESP 20; TEMP 97
[2016-11-28 19:13] VITALS: PULSE 68
== END 2016-11-28 19:10 | disposition home or self-care (01) | DRG 35 ==
LOC: C.ER 11:29 → C.9E 14:14 → C.6T 15:03 → OBSVTOIN 11-25 10:15
PROVIDERS: ADMIT Internal Medicine; ATTEND Internal Medicine
DX: R20.8 Other disturbances of skin sensation (principal); I10 Essential (primary) hypertension; R51 Headache; M19.90 Unspecified osteoarthritis, unspecified site; E78.00 Pure hypercholesterolemia, unspecified; R73.02 Impaired glucose tolerance (oral); E78.5 Hyperlipidemia, unspecified; Z79.02 Long term (current) use of antithrombotics/antiplatelets; Z79.82 Long term (current) use of aspirin; Z86.010 Personal history of colon polyps; Z86.73 Personal history of transient ischemic attack (TIA), and cerebral infarction without residual deficits; Z90.49 Acquired absence of other specified parts of digestive tract

== ENCOUNTER 2016-12-12 18:50 | Inpatient (IN) | payer MEDICAID ==
[2016-12-12 18:50] VITALS: BMI 36.2
[2016-12-12 21:09] LABS: BASO % 0.3 % (0.0-2.0); EOS # 0.3 K/uL (0.0-0.7); EOS % 3.4 % (0.0-4.0); HEMATOCRIT 40.1 % (34.0-47.0); LYMPH # 4.1 K/uL (1.0-4.3); LYMPH % 49.6 % (20.0-40.0); MEAN CELL VOLUME 84.2 fL (81.0-99.0); MEAN CORPUSCULAR HEMOGLOBIN 27.8 pg (27.0-31.0); MEAN PLATELET VOLUME 7.5 fL (7.2-11.7); MONO # 0.6 K/uL (0.0-0.8); MONO % 7.2 % (0.0-10.0); NRBC % 0.1 % (0.0-2.0); WHITE BLOOD COUNT 8.3 K/uL (4.8-10.8)
[2016-12-12 21:16] LABS: INR 0.9
[2016-12-12 21:17] LABS: CHLORIDE 100 mmol/L (98-107); POTASSIUM 3.6 mmol/L (3.6-5.2); SODIUM 141 mmol/L (132-148)
[2016-12-12 21:19] LABS: ALB/GLOB RATIO 1.3 (1.0-2.1); BILIRUBIN,TOTAL 0.4 mg/dL (0.2-1.3); CARBON DIOXIDE 24 mmol/L (22-30); CHOLESTEROL 156 mg/dL (0-199); GFR AFRICAN-AMERICAN > 60
[2016-12-12 21:20] LABS: ALKALINE PHOSPHATASE 109 U/L (38-126); ALT/SGPT 52 U/L (9-52); AST/SGOT 34 U/L (14-36); BLOOD UREA NITROGEN 13 mg/dL (7-17); CALCIUM 9.4 mg/dl (8.6-10.4); GLUCOSE,RANDOM 82 mg/dL (65-105)
--- NOTE | 2016-12-12 21:45 | C.PDOC ---
History Of Present Illness 66 y/o female presents to ED with complaints of left side of body weakness and tiredness for 2 weeks worse since 10am with associated Headache. Patient was admitted to hospital on 11/25/16 for TIA and similar symptoms that resolved upon re-evaluation but return when she was at home. Patient denies trauma, fever, chills, n/v/d, numbness or any other complaints at this time. Time Seen by Provider: 12/12/16 20:28 Chief Complaint (Nursing): Headache History Per: Patient History/Exam Limitations: no limitations Onset/Duration Of Symptoms: Days Current Symptoms Are (Timing): Still Present Past Medical History Reviewed: Historical Data, Nursing Documentation, Vital Signs Vital Signs: Last Vital Signs Temp 99.1 F 12/12/16 19:03 Pulse 77 12/12/16 19:03 Resp 20 12/12/16 19:03 BP 136/72 12/12/16 19:03 Pulse Ox 99 12/13/16 00:18 - Medical History PMH: Arthritis, Colonic Polyps, Gastritis, Gall Bladder Disease, HTN, Hypercholesterolemia Surgical History: Cholecystectomy, Endoscopy - [facility] Procedures ESOPHAGOGASTRODUODENOSCOPY [EGD] W/CLOSED BIOPSY (04/23/14) Family History: States: Unknown Family Hx - Social History Hx Tobacco Use: No Hx Alcohol Use: No Hx Substance Use: No - Immunization History Hx Tetanus Toxoid Vaccination: No Hx Influenza Vaccination: No Hx Pneumococcal Vaccination: No Review Of Systems Except As Marked, All Systems Reviewed And Found Negative. Constitutional: Negative for: Fever, Chills Gastrointestinal: Negative for: Nausea, Vomiting, Diarrhea Musculoskeletal: Positive for: Other (Left side of body pain) Skin: Negative for: Rash Neurological: Positive for: Weakness, Headache. Negative for: Numbness, Dizziness Physical Exam - Physical Exam Appears: Other (Anxious, Obese) Skin: Normal Color, Warm, No Rash Head: Atraumatic, Normacephalic Eye(s): bilateral: Normal Inspection Oral Mucosa: Moist Neck: Supple Extremity: Normal ROM, Capillary Refill (<2 seconds), No Deformity, No Swelling Extremity: Bilateral: Normal ROM Pulses: Left Dorsalis Pedis: Normal, Right Dorsalis Pedis: Normal Neurological/Psych: Oriented x3, Normal Speech, Normal Motor, Normal Sensation Gait: Steady ED Course And Treatment - Laboratory Results Result Diagrams: 12/12/16 21:05 12/12/16 21:05 Lab Interpretation: Normal ECG: Interpreted By Me ECG Rhythm: Sinus Rhythm ECG Interpretation: Normal Rate From EC O2 Sat by Pulse Oximetry: 99 (RA) Pulse Ox Interpretation: Normal - Radiology CXR: Interpreted by Me CXR Interpretation: Yes: No Acute Disease - Other Rad head Ct X-Ray: Read By Radiologist (no acute findings) Reevaluation Time: 22:23 Reassessment Condition: Improved (remains asymptomatic, neurologically intact) - Physician Consult Information Outcome Of Conversation: [id number]: d/w Dr. Gilmore- Hospitalist Scalder for Clinic pt 's- ok to Tele obs. Will consult with Dr. Fatuma beatty w prior admission and consult 11/25/16 NIHSS Stroke Scale - Date/Time Evaluation Performed Date Performed: 12/12/16 Time Performed: 20:30 When Was NIHSS Performed: Baseline - How Severe is the Stoke Level of Consciousness: 0=Alert LOC to Questions: 0=Both comments correct LOC to commands: 0=Obeys both correctly Best Gaze: 0=Normal Visual: 0=No visual loss Facial: 0=Normal Motor Arm - Left: 0=No drift Motor Arm - Right: 0=No drift Motor Leg - Left: 0=No drift Motor Leg - Right: 0=No drift Limb Ataxia: 0=Absent Sensory: 0=Normal Best Language: 0=No aphasia Dysarthia: 0=Normal articulation Extinction & Inattention (Neglect): 0=Normal, no object Score: 0 Severity Of Stroke: 0= No Stroke rTPA Inclusion/Exclusion - Refusal of Treatment Patient Refused Treatment: No - Inclusion Criteria for Altepase Patient is 18 years or Older: Yes The Clinical Diagnosis of Ischemic Stroke That is Causing a Potentially Disabling Neurological Deficit: No Time of Onset is Well Established to be Less Than 270 Minute Before Treatment Would Begin: No Risk/Benefit Discussed With Patient/Family Member Present: No - Exclusion Criteria for Altepase Uncontrolled Hypertension at Time of Treatment (Systolic BP above 185 or Diastolic BP above 110 mmHg): No Known Bleeding Diathesis Including but Not Limited to: Platelets Below 100,000/ mm,PTT Above 40 sec After Heparin Use, Current Use of Oral Anitcoagulant With INR Greater Than 1.7 or PT Greater Than 15 secs: No Evidence of an Intracranial Hemorrhage: No Evidence of Major Acute Infarct With Signs Greater Than 1/3 MCA Territory: No Suspicion of Subarachnoid Hemorrhage on Pretreatment Evaluation Even if CT Head Negative For Hemorrhage: No - Warning to TPA With Conditions Following Conditions Weighed Against Anticipated Benefit: Yes Condition: Stroke Serevity Too Mild Medical Decision Making Medical Decision Making: L body heaviness, normal neuro exam. Same as prior "TIA" w/u adm 11/25/16 asa given tele Obs. Disposition Doctor Will See Patient In The: Hospital Counseled Patient/Family Regarding: Studies Performed, Diagnosis - Disposition Disposition: HOSPITALIZED Disposition Time: 22:25 Condition: GOOD - POA Present On Arrival: None - Clinical Impression Clinical Impression: Weakness of left side of body - Scribe Statement The provider has reviewed the documentation as recorded by the Jameibsharon Smart All medical record entries made by the Jameibsharon were at my direction and personally dictated by me. I have reviewed the chart and agree that the record accurately reflects my personal performance of the history, physical exam, medical decision making, and the department course for this patient. I have also personally directed, reviewed, and agree with the discharge instructions and disposition.
--- NOTE | 2016-12-12 22:46 | CT ---
EXAM: CT Head Without Intravenous Contrast CLINICAL HISTORY: 66 years old, female; Signs and symptoms; Weakness, extremity; Bilateral; Additional info: Recurrent l body "heavy" normal neuro exam TECHNIQUE: Axial computed tomography images of the head/brain without intravenous contrast. This CT exam was performed using one or more of the following dose reduction techniques: automated exposure control, adjustment of the mA and/or kV according to patient size, and/or use of iterative reconstruction technique. EXAM DATE/TIME: 12/12/2016 8:36 PM COMPARISON: CTA HEAD 11/24/16 FINDINGS: Brain: Ventricles are normal in size and configuration. There is no midline shift. There are no intra-axial or extra-axial mass lesions or areas of hemorrhage. There are basal ganglia calcifications left greater than right, unchanged. There are no abnormal fluid collections. Chapin-white differentiation is maintained. Ventricles: See above. Bones: Cranial vault is intact. Soft tissues: unremarkable Sinuses: There is no acute sinusitis. Ears and mastoids: Middle ears and mastoids are unremarkable Orbits: Orbital contents are unremarkable. IMPRESSION: No acute intracranial abnormality
--- NOTE | 2016-12-13 01:20 | CP.PCM.HP ---
<Deb Cruz - Last Filed: 12/13/16 04:38> History of Present Illness - History of Present Illness History of Present Illness: CC: weakness HPI: 66 year old female with PMHx significant for HTN, hypercholesterolemia, hemorrhoids, colonic polyps, gastritis and hernia presents with chief complaint of left sided unilateral weakness for two week duration. Patient states that her symptoms started around 6 pm prior to arriving at the ED. Patient was last seen here in November for a similar workup after experiencing numbness and headache. She states that she was asked to come back to the emergency room if her symptoms returned. Though her symptoms improved over the course of her hospital stay during the prior admission, patient states that her symptoms worsened after she arrived at home. Patient admits to headaches, vision changes , chest pain, palpitations, nausea, back pain, and feeling bloated as well. She denies vomiting, recent travel or sickness, diarrhea or constipation at this time. PMHx: as stated above PSHx: Cholecystectomy, Tubal ligation, Lipoma removal, Repair of bladder prolapse, Colonoscopy 3x, Endoscopy Fam Hx: Mother: MS at age 92 (). Medications: Norvasc 10mg PO daily, Gabapentin 300mg PO daily, Omeprazole 20mg PO daily, Plavix 75 mg Po daily, ASA 81 mg daily, Crestor 10 mg HS Social History: Lives with . 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 Denies use of tobacco, ETOH or illicit drugs. Allergies: NKDA PMD: Dr. Keenan Present on Admission - Present on Admission Any Indicators Present on Admission: No Review of Systems - Review of Systems Systems not reviewed;Unavailable: Language Barrier - Constitutional Constitutional: Headache - EENT Eyes: Blurred Vision, Change in Vision Ears: absent: Decreased Hearing, Abnormal Hearing - Cardiovascular Cardiovascular: Chest Pain, Chest Pain at Rest, Dyspnea - Respiratory Respiratory: Dyspnea. absent: Wheezing, Chest Congestion - Gastrointestinal Gastrointestinal: Nausea. absent: Vomiting - Musculoskeletal Musculoskeletal: Back Pain - Integumentary Integumentary: Dry Skin. absent: Bleeding Lesions, Swelling - Neurological Neurological: As Per HPI, Headaches, Weakness. absent: Burning Sensations, Confusion, Dizziness - Hematologic/Lymphatic Hematologic: absent: Easy Bleeding, Easy Bruising Past Patient History - Infectious Disease Hx of Infectious Diseases: None - Past Medical History & Family History Past Medical History?: Yes - Past Social History Smoking Status: Never Smoked Alcohol: None Drugs: Denies Home Situation {Lives}: With Family - CARDIAC Hx Hypercholesterolemia: Yes Hx Hypertension: Yes - PULMONARY Hx Respiratory Disorders: No - NEUROLOGICAL Hx Neurological Disorder: No - HEENT Hx HEENT Problems: No - RENAL Hx Chronic Kidney Disease: No - ENDOCRINE/METABOLIC Hx Endocrine Disorders: No - HEMATOLOGICAL/ONCOLOGICAL Hx Blood Disorders: Yes - INTEGUMENTARY Hx Dermatological Problems: No - MUSCULOSKELETAL/RHEUMATOLOGICAL Hx Arthritis: Yes - GASTROINTESTINAL Hx Gall Bladder Disease: Yes Hx Gastritis: Yes - GENITOURINARY/GYNECOLOGICAL Hx Genitourinary Disorders: No - PSYCHIATRIC Hx Substance Use: No - SURGICAL HISTORY Hx Cholecystectomy: Yes - ANESTHESIA Hx Anesthesia: Yes Hx Anesthesia Reactions: No Meds Allergies/Adverse Reactions: Allergies Allergy/AdvReac Type Severity Reaction Status Date / Time No Known Allergies Allergy Verified 12/12/16 19:01 Physical Exam - Constitutional Appears: Non-toxic, No Acute Distress - Head Exam Head Exam: ATRAUMATIC, NORMAL INSPECTION, NORMOCEPHALIC - Eye Exam Eye Exam: EOMI, Normal appearance, PERRL Pupil Exam: NORMAL ACCOMODATION, PERRL - ENT Exam ENT Exam: Mucous Membranes Moist - Neck Exam Neck exam: Positive for: Full Rom - Respiratory Exam Respiratory Exam: NORMAL BREATHING PATTERN. absent: Wheezes - Cardiovascular Exam Cardiovascular Exam: +S1, +S2 - GI/Abdominal Exam GI & Abdominal Exam: Normal Bowel Sounds, Soft - Extremities Exam Extremities exam: Positive for: full ROM, normal capillary refill, pedal pulses present. Negative for: calf tenderness, pedal edema - Back Exam Back exam: FULL ROM - Neurological Exam Neurological exam: Alert, CN II-XII Intact, Oriented x3, Reflexes Normal - Expanded Neurological Exam Expanded Patient oriented to: person, place, time Cranial nerves: EOM's Intact: Normal Cerebellar Function: Finger to Nose: Normal Sensory exam: Lower Extremity 2 Point Discrimination: Normal, Lower Extremity Light Touch: Normal, Upper Extremity 2 Point Discrimination: Normal, Upper Extremity Light Touch: Normal Neuro motor strength exam: Left Upper Extremity: 5, Right Upper Extremity: 5, Left Lower Extremity: 5, Right Lower Extremity: 5 DTR: Brachioradialis Left: 2+, Brachioradialis Right: 2+, Patellar Left: 2+, Patellar Right: 2+ - Psychiatric Exam Psychiatric exam: Normal Affect, Normal Mood - Skin Skin Exam: Dry, Normal Color, Warm Results - Vital Signs Recent Vital Signs: Last Vital Signs Temp 99.1 F 12/12/16 19:03 Pulse 77 12/12/16 19:03 Resp 20 12/12/16 19:03 BP 136/72 12/12/16 19:03 Pulse Ox 99 12/13/16 00:19 - Labs Result Diagrams: 12/12/16 21:05 12/12/16 21:05 Assessment & Plan - Assessment and Plan (Free Text) Assessment: Weakness Assessment and Plan: F/U Consut to Dr. Burris ( Neurology) Head CT- No acute intracranial abnormality Improvements to Lipid panel from prior admission: -T, Cholesterol:156, LDL: 81, HDL: 58 Improvements to HgbA1c: 5.9 Thorough workup on prior admission inclusive of Brain MRI, MRA head and neck, Carotid doppler, Echocardiogram with largely negative findings. Will defer to Neurology at this point regarding subsequent workup MRI brain (11/24/16): no acute intracranial hemorrhage or infarct. 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 mild generalized volume loss. mild mucoperiosteal inflammatory changes right maxillary sinus Cartoid doppler (11/24/16): no acute findings MRA of neck (11/24/16) was negative MRA of Head (11/24/16) shows mild asymmetry of distal cavernous carotid segments of ICA right sided, artherosclerotic narrowing cannot be excluded; small flow related type artifact within this segement of the right cavernous cartoid artery , some localized atherosclerotic narrowing cannot be completely excluded. 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 No evidence of large aneurysm nor vascular malformation Echocardiogram (11/24/16): borderline concentric left ventricular hypertrophy. left ventricle systolic function is normal. EF: >70%, abnormal relaxation Head/ Neck CTA (11/26/16): No hemodynamically significant stenosis within the bilateral internal carotid arteries. Proximal portion of the left internal carotid artery demonstrates a retropharyngeal course. Cont ASA 81 mg, Plavix daily F/U AM labs Status: Acute Chest Pain Assessment and Plan: F/U ROMIs with EKGs ANTOINE 1-2 negative ASA 81 mg Hypertension Assessment and Plan: Continue home medication: Norvasc 10mg PO daily Cont to monitor Status: Acute Hypercholesterolemia Assessment and Plan: Improved. Diet and exercise counseling reinforced Cont Crestor 10mg PO QD Status: Acute Prophylactic measure Assessment and Plan: SCDs DVT ppx: Lovenox 40mg SC QD GI prophylaxis Pepcid 20 mg BID Heart healthy diet Neuro checks , fall risk protocol Status: Acute <Santos Gilmore - Last Filed: 12/13/16 06:27> Results - Vital Signs Recent Vital Signs: Last Vital Signs Temp 98.2 F 12/13/16 02:45 Pulse 64 12/13/16 02:29 Resp 16 12/13/16 02:29 BP 143/66 12/13/16 02:29 Pulse Ox 96 12/13/16 02:29 - Labs Result Diagrams: 12/12/16 21:05 12/12/16 21:05 Labs: Laboratory Results - last 24 hr 12/13/16 03:54 Total Creatine Kinase 69 CK-MB (Mass) 0.47 Troponin I, Quant < 0.0120 Assessment & Plan - Date & Time Date: 12/13/16 (I have seen and examined the patient. I agree with the findings and plan of care as documented by Dr. Cruz. Patient with chest pain. History of hypertension and hypercholesterolemia. ROMIx3 with EKG. Aspirin and Statin. Continue home meds. Monitor for acute changes.) Time: 06:26 Attending/Attestation - Attestation I have personally seen and examined this patient.: Yes I have fully participated in the care of the patient.: Yes I have reviewed all pertinent clinical information: Yes
[2016-12-13 06:39] LABS: BASO % 0.4 % (0.0-2.0); EOS # 0.2 K/uL (0.0-0.7); EOS % 3.7 % (0.0-4.0); HEMATOCRIT 40.1 % (34.0-47.0); LYMPH # 3.1 K/uL (1.0-4.3); LYMPH % 46.2 % (20.0-40.0); MEAN CELL VOLUME 84.5 fL (81.0-99.0); MEAN CORPUSCULAR HGB CONC 33.1 g/dL (33.0-37.0); MEAN PLATELET VOLUME 7.7 fL (7.2-11.7); MONO # 0.5 K/uL (0.0-0.8); MONO % 7.9 % (0.0-10.0); NRBC % 0.2 % (0.0-2.0); RED CELL DISTRIBUTION WIDTH 14.7 % (11.5-14.5); WHITE BLOOD COUNT 6.7 K/uL (4.8-10.8)
[2016-12-13 06:46] LABS: CHLORIDE 103 mmol/L (98-107)
[2016-12-13 06:47] LABS: SODIUM 137 mmol/L (132-148)
[2016-12-13 06:49] LABS: ALB/GLOB RATIO 1.1 (1.0-2.1); BILIRUBIN,TOTAL 0.6 mg/dL (0.2-1.3); CARBON DIOXIDE 20 mmol/L (22-30); GFR AFRICAN-AMERICAN > 60; TOTAL PROTEIN 7.1 g/dL (6.3-8.3)
[2016-12-13 06:50] LABS: ALKALINE PHOSPHATASE 109 U/L (38-126); ALT/SGPT 49 U/L (9-52); AST/SGOT 34 U/L (14-36); BLOOD UREA NITROGEN 12 mg/dL (7-17); CALCIUM 9.3 mg/dl (8.6-10.4); GLUCOSE,RANDOM 75 mg/dL (65-105); PHOSPHOROUS 4.5 mg/dL (2.5-4.5)
[2016-12-13 06:51] LABS: MAGNESIUM 1.9 mg/dL (1.6-2.3)
[2016-12-13 07:18] LABS: THYROID STIMULATING HORMONE 3.48 mIU/L (0.46-4.68)
--- NOTE | 2016-12-13 08:19 | RAD ---
HISTORY: Admission COMPARISON: 11/24/2016 FINDINGS: LUNGS: Mild venous congestion. Right hilar prominence. Small nodular density in the right midlung zone may represent vessel on end. PLEURA: No significant pleural effusion identified, no pneumothorax apparent. CARDIOVASCULAR: Calcification at the aortic knob. OSSEOUS STRUCTURES: No significant abnormalities. VISUALIZED UPPER ABDOMEN: Normal. OTHER FINDINGS: None. IMPRESSION: Mild venous congestion. Right hilar prominence. Small nodular density in the right midlung zone may represent vessel on end.
[2016-12-13] MEDS: Enoxaparin 40 mg Syringe SC SCH (11:00)
[2016-12-13] MEDS: Pantoprazole 40 mg EC Tab PO SCH (11:00)
--- NOTE | 2016-12-13 12:52 | CP.PCM.CON ---
History of Present Illness - History of Present Illness History of Present Illness: Mrs. Namita Egan is a 65-year-old woman with a past medical history of HTN , HLD, TIA, who was admitted on 11/25/2016 after having complaints of left side weakness. At that time, a full work-up, including an MRI of the brain was done and no significant findings were noted. Her symptoms had resolved by the time she was discharged and she was diagnosed with another TIA. She was asked to return to the ED if her symptoms returned and started on aspirin and Plavix. The patient states that her symptoms returned when she went home and they have become progressively worse, culminating in worse weakness and headache yesterday. She states she has been compliant with her medications and feels better today. When I saw her, she was eating lunch and using her left hand as well without significant difficulty. She continues to complain of left side weakness that is more than usual. Review of Systems - Review of Systems All systems: reviewed and no additional remarkable complaints except Past Patient History - Infectious Disease Hx of Infectious Diseases: None - Past Medical History & Family History Past Medical History?: Yes - Past Social History Smoking Status: Never Smoked Alcohol: None Drugs: Denies Home Situation {Lives}: With Family - CARDIAC Hx Hypercholesterolemia: Yes Hx Hypertension: Yes - PULMONARY Hx Respiratory Disorders: No - NEUROLOGICAL Hx Neurological Disorder: No - HEENT Hx HEENT Problems: No - RENAL Hx Chronic Kidney Disease: No - ENDOCRINE/METABOLIC Hx Endocrine Disorders: No - HEMATOLOGICAL/ONCOLOGICAL Hx Blood Disorders: Yes - INTEGUMENTARY Hx Dermatological Problems: No - MUSCULOSKELETAL/RHEUMATOLOGICAL Hx Arthritis: Yes - GASTROINTESTINAL Hx Gall Bladder Disease: Yes Hx Gastritis: Yes - GENITOURINARY/GYNECOLOGICAL Hx Genitourinary Disorders: No - PSYCHIATRIC Hx Substance Use: No - SURGICAL HISTORY Hx Cholecystectomy: Yes - ANESTHESIA Hx Anesthesia: Yes Hx Anesthesia Reactions: No Meds Allergies/Adverse Reactions: Allergies Allergy/AdvReac Type Severity Reaction Status Date / Time No Known Allergies Allergy Verified 12/12/16 19:01 - Medications Medications: Current Medications Amlodipine Besylate (Norvasc) 10 mg PO DAILY [facility] Last Admin: 12/13/16 11:00 Dose: 10 mg Aspirin (Ecotrin) 81 mg PO DAILY [facility] Last Admin: 12/13/16 11:00 Dose: 81 mg Clopidogrel Bisulfate (Plavix) 75 mg PO DAILY [facility] Last Admin: 08/09/17 11:00 Dose: 75 mg Enoxaparin Sodium (Lovenox) 40 mg SC DAILY [facility] Last Admin: 12/13/16 11:00 Dose: 40 mg Gabapentin (Neurontin) 300 mg PO DAILY [facility] Last Admin: 12/13/16 11:00 Dose: 300 mg Pantoprazole Sodium (Protonix Ec Tab) 40 mg PO DAILY [facility] Last Admin: 12/13/16 11:00 Dose: 40 mg Rosuvastatin Calcium (Crestor) [address] [facility] Physical Exam - Constitutional Appears: Well, Non-toxic, Toxic, No Acute Distress, In Acute Distress, Unkempt, Older Than Stated Age, Younger Than Stated Age, Combative, Agitated, Confused, Cachectic, Chronically Ill, Other - Head Exam Head Exam: ATRAUMATIC, NORMAL INSPECTION, NORMOCEPHALIC - Eye Exam Eye Exam: EOMI, Normal appearance, PERRL - ENT Exam ENT Exam: Mucous Membranes Moist, Normal Exam - Neck Exam Neck exam: Positive for: Normal Inspection - Respiratory Exam Respiratory Exam: Clear to Auscultation Bilateral, NORMAL BREATHING PATTERN - Cardiovascular Exam Cardiovascular Exam: REGULAR RHYTHM, +S1, +S2 - GI/Abdominal Exam GI & Abdominal Exam: Normal Bowel Sounds, Soft. absent: Tenderness - Rectal Exam Rectal Exam: Deferred - Extremities Exam Extremities exam: Positive for: normal inspection - Back Exam Back exam: NORMAL INSPECTION - Neurological Exam Neurological exam: Abnormal Gait, Alert, CN II-XII Intact, Oriented x3, Reflexes Normal - Expanded Neurological Exam Expanded Patient oriented to: person, place, time Cranial nerves: EOM's Intact: Normal, Facial Palsey w/Forehead Movement: Normal , Gag Reflex: Normal, Nystagmus: Normal Cerebellar Function: Finger to Nose: Normal, Heel to Roa: Abnormal Left Upper motor neuron: Babinski Sign: Normal Sensory exam: Lower Extremity Light Touch: Abnormal Left, Lower Extremity Pin Prick: Abnormal Left, Upper Extremity Light Touch: Abnormal Left, Upper Extremity Pin Prick: Abnormal Left Neuro motor strength exam: Left Upper Extremity: 4, Right Upper Extremity: 5, Left Lower Extremity: 4, Right Lower Extremity: 5 DTR: Achilles Tendon Left: 2+, Achilles Tendon Right: 2+, Bicep Left: 2+, Bicep Right: 2+, Brachioradialis Left: 2+, Brachioradialis Right: 2+, Patellar Left: 2 +, Patellar Right: 2+, Tricep Left: 2+, Tricep Right: 2+ - Psychiatric Exam Psychiatric exam: Normal Affect, Normal Mood - Skin Skin Exam: Dry, Intact, Normal Color, Warm Results - Vital Signs Recent Vital Signs: Last Vital Signs Temp 98.4 F 12/13/16 08:00 Pulse 59 L 12/13/16 11:20 Resp 13 12/13/16 11:20 BP 133/63 12/13/16 10:58 Pulse Ox 97 12/13/16 09:00 - Labs Result Diagrams: 12/13/16 06:27 12/13/16 06:27 Labs: Laboratory Results - last 24 hr 12/13/16 12/13/16 12/13/16 03:54 06:27 06:27 WBC 6.7 RBC 4.74 Hgb 13.3 Hct 40.1 MCV 84.5 MCH 28.0 MCHC 33.1 RDW 14.7 H Plt Count 422 H MPV 7.7 Neut % (Auto) 41.8 L Lymph % (Auto) 46.2 H [place] % (Auto) 7.9 Eos % (Auto) 3.7 Baso % (Auto) 0.4 Neut # 2.8 Lymph # 3.1 [place] # 0.5 Eos # 0.2 Baso # 0.0 PT 10.6 INR 1.0 APTT 26 Sodium Potassium Chloride Carbon Dioxide Anion Gap BUN Creatinine Est GFR ( Amer) Est GFR (Non-Af Amer) Random Glucose Calcium Phosphorus Magnesium Total Bilirubin AST ALT Alkaline Phosphatase Total Creatine Kinase 69 CK-MB (Mass) 0.47 Troponin I, Quant < 0.0120 Total Protein Albumin Globulin Albumin/Globulin Ratio Free T4 TSH 3rd Generation 12/13/16 12/13/16 06:27 06:27 WBC RBC Hgb Hct MCV MCH MCHC RDW Plt Count MPV Neut % (Auto) Lymph % (Auto) [place] % (Auto) Eos % (Auto) Baso % (Auto) Neut # Lymph # [place] # Eos # Baso # PT INR APTT Sodium 137 Potassium 4.0 Chloride 103 Carbon Dioxide 20 L Anion Gap 18 BUN 12 Creatinine 0.5 L Est GFR ( Amer) > 60 Est GFR (Non-Af Amer) > 60 Random Glucose 75 Calcium 9.3 Phosphorus 4.5 Magnesium 1.9 Total Bilirubin 0.6 AST 34 ALT 49 Alkaline Phosphatase 109 Total Creatine Kinase CK-MB (Mass) Troponin I, Quant Total Protein 7.1 Albumin 3.8 Globulin 3.4 Albumin/Globulin Ratio 1.1 Free T4 0.87 TSH 3rd Generation 3.48 Assessment & Plan (1) Weakness of left side of body Assessment and Plan: This seems to be consistent with her previous TIA symptoms, but she is still not back to baseline and continues to have symptoms based on examination. I recommend the followin. Telemetry 2. MRI of the brain without contrast 3. Continue aspirin 81 mg, Plavix 75 mg daily and Crestor 10 mg 4. PT/OT eval and treat 5. DVT Px 6. Hydration with NS at 100 mL/hr 7. Case management consult Thank you. Status: Acute Priority: Medium
--- NOTE | 2016-12-13 17:27 | CP.PCM.PN ---
<Nitesh Cisneros - Last Filed: 12/13/16 17:24> Subjective - Date & Time of Evaluation Date of Evaluation: 12/13/16 Time of Evaluation: 17:24 - Subjective Subjective: PGY-[address] Martinez HPI: patient seen and examined at bedside. Patient has multiple complaints. She states her chest hurts a little to breath. She states that her left arm hurts " a little". She also states that her L. leg "hurts a little". Also complaining of mild back pain. She is also complaining of L. neck pain and head pain across the top of her head. No complaints of F, N, V, D, Chills. Objective - Vital Signs/Intake and Output Vital Signs (last 24 hours): Temp Pulse Resp BP Pulse Ox 97.4 F L 59 L 13 133/63 97 12/13/16 12:00 12/13/16 11:20 12/13/16 11:20 12/13/16 10:58 12/13/16 09:00 Intake and Output: 12/13/16 12/13/16 06:59 18:59 Intake Total 240 Output Total 450 Balance -210 - Medications Medications: Current Medications Amlodipine Besylate (Norvasc) 10 mg PO DAILY [facility] Last Admin: 12/13/16 11:00 Dose: 10 mg Aspirin (Ecotrin) 81 mg PO DAILY [facility] Last Admin: 12/13/16 11:00 Dose: 81 mg Clopidogrel Bisulfate (Plavix) 75 mg PO DAILY [facility] Last Admin: 12/13/16 11:00 Dose: 75 mg Enoxaparin Sodium (Lovenox) 40 mg SC DAILY [facility] Last Admin: 12/13/16 11:00 Dose: 40 mg Gabapentin (Neurontin) 300 mg PO DAILY [facility] Last Admin: 12/13/16 11:00 Dose: 300 mg Pantoprazole Sodium (Protonix Ec Tab) 40 mg PO DAILY [facility] Last Admin: 12/13/16 11:00 Dose: 40 mg Rosuvastatin Calcium (Crestor) 10 mg PO HS [facility] - Labs Labs: 12/13/16 06:27 12/13/16 06:27 PT 10.6 SECONDS (9.7-12.2) 12/13/16 06:27 INR 1.0 12/13/16 06:27 APTT 26 SECONDS (21-34) 12/13/16 06:27 - Constitutional Appears: Well, Non-toxic, No Acute Distress - Head Exam Head Exam: ATRAUMATIC, NORMAL INSPECTION, NORMOCEPHALIC - Eye Exam Eye Exam: EOMI. absent: Conjunctival injection, Periorbital swelling, Periorbital tenderness Pupil Exam: NORMAL ACCOMODATION, PERRL - ENT Exam ENT Exam: Mucous Membranes Moist - Neck Exam Additional comments: + spuriling test for radiculopathy of the L. side - Respiratory Exam Respiratory Exam: Clear to Ausculation Bilateral - Cardiovascular Exam Cardiovascular Exam: REGULAR RHYTHM - GI/Abdominal Exam GI & Abdominal Exam: Soft. absent: Distended, Guarding, Rigid, Tenderness - Back Exam Back Exam: NORMAL INSPECTION, paraspinal tenderness - Neurological Exam Neurological Exam: Alert, Awake, Oriented x3 Neuro motor strength exam: Left Upper Extremity: 4, Right Upper Extremity: 5, Left Lower Extremity: 4, Right Lower Extremity: 5 Additional comments: + romberg sign - Psychiatric Exam Psychiatric exam: Normal Affect, Normal Mood - Skin Skin Exam: Dry, Intact, Normal Color, Warm Assessment and Plan - Assessment and Plan (Free Text) Assessment: Weakness Dr. Burris (Neurology) - MRI brain, start NS @100, PT Eval F/U brain MRI Head CT- No acute intracranial abnormality MRI brain (11/24/16): no acute intracranial hemorrhage or infarct. 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 mild generalized volume loss. mild mucoperiosteal inflammatory changes right maxillary sinus Cartoid doppler (11/24/16): no acute findings MRA of neck (11/24/16) was negative MRA of Head (11/24/16) shows mild asymmetry of distal cavernous carotid segments of ICA right sided, artherosclerotic narrowing cannot be excluded; small flow related type artifact within this segement of the right cavernous cartoid artery , some localized atherosclerotic narrowing cannot be completely excluded. 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 No evidence of large aneurysm nor vascular malformation Echocardiogram (11/24/16): borderline concentric left ventricular hypertrophy. left ventricle systolic function is normal. EF: >70%, abnormal relaxation Head/ Neck CTA (11/26/16): No hemodynamically significant stenosis within the bilateral internal carotid arteries. Proximal portion of the left internal carotid artery demonstrates a retropharyngeal course. Cont ASA 81 mg, Plavix daily Chest Pain ANTOINE negative ASA 81 mg Hypertension Continue home medication: Norvasc 10mg PO daily Cont to monitor Hypercholesterolemia Improved Diet and exercise counseling reinforced Cont Crestor 10mg PO QD Prophylactic measure SCDs DVT ppx: Lovenox 40mg SC QD GI prophylaxis Pepcid 20 mg BID Heart healthy diet Neuro checks , fall risk protocol <Andrea Martinez - Last Filed: 12/14/16 20:43> Objective - Vital Signs/Intake and Output Vital Signs (last 24 hours): Temp Pulse Resp BP Pulse Ox 97.9 F 60 18 109/71 95 12/14/16 16:12 12/14/16 17:55 12/14/16 16:12 12/14/16 16:12 12/14/16 16:12 - Medications Medications: Current Medications Amlodipine Besylate (Norvasc) 10 mg PO DAILY [facility] Last Admin: 12/14/16 11:36 Dose: 10 mg Aspirin (Ecotrin) 81 mg PO DAILY [facility] Last Admin: 12/14/16 11:38 Dose: 81 mg Clopidogrel Bisulfate (Plavix) 75 mg PO DAILY [facility] Last Admin: 12/14/16 11:36 Dose: 75 mg Enoxaparin Sodium (Lovenox) 40 mg SC DAILY [facility] Last Admin: 12/14/16 11:38 Dose: 40 mg Gabapentin (Neurontin) 300 mg PO DAILY [facility] Last Admin: 12/14/16 11:37 Dose: 300 mg Pantoprazole Sodium (Protonix Ec Tab) 40 mg PO DAILY [facility] Last Admin: 12/14/16 11:38 Dose: 40 mg Rosuvastatin Calcium (Crestor) 10 mg PO HS [facility] Last Admin: 12/13/16 22:00 Dose: 10 mg - Labs Labs: PT 10.6 SECONDS (9.7-12.2) 12/13/16 06:27 INR 1.0 12/13/16 06:27 APTT 26 SECONDS (21-34) 12/13/16 06:27 Attending/Attestation - Attestation I have personally seen and examined this patient.: Yes I have fully participated in the care of the patient.: Yes I have reviewed all pertinent clinical information, including history, physical exam and plan: Yes Notes (Text): 12/14/16 20:42 Patient was seen and examined on 12/13/16. History, Physical, Assessement and Plan were thoroughly gone over with the resident Andrea Martinez D.O.
[2016-12-13] MEDS ORDERED: Sodium Chloride 0.9% 1,000 ML IV SCH (17:45)
--- NOTE | 2016-12-13 19:16 | CARD ---
APPROVED REPORT EKG Measurement Heart [id number] <Conclusion> Normal sinus rhythm Normal ECG
[2016-12-14] MEDS: Enoxaparin 40 mg Syringe SC SCH (11:38)
[2016-12-14] MEDS: Pantoprazole 40 mg EC Tab PO SCH (11:38)
--- NOTE | 2016-12-14 12:30 | MRI ---
PROCEDURE: MRI BRAIN WITHOUT CONTRAST HISTORY: left side weakness COMPARISON: Head CT 12/12/2016 TECHNIQUE: Multiplanar, multisequence MR images of the brain were obtained without intravenous contrast enhancement. FINDINGS: HEMORRHAGE: None DWI: No evidence of an acute or early subacute infarction. BRAIN PARENCHYMA: Minimal age related neuro degenerative changes are identified comprised of diffuse cerebral atrophy chronic microangiopathy at the cerebrum. Further, a few chronic lacune is seen greater the left and right caudate nucleus body regions. The midline brain and appears diffusely unremarkable and there is no mass effect or extra-axial fluid collection identified. Posterior fossa contents appear unremarkable including the brainstem. VENTRICLES: Unremarkable. No hydrocephalus. CRANIUM: Unremarkable. Craniocervical junction appears unremarkable. ORBITS: Grossly unremarkable. PARANASAL SINUSES/MASTOIDS: Clear VASCULAR SYSTEM: Skull base flow voids intact. OTHER FINDINGS: None. IMPRESSION: Minimal age related neuro degenerate change identified as well as a few chronic lacunar infarcts affecting the bodies of the bilateral caudate nuclei. No definite acute intracranial findings. Yes
--- NOTE | 2016-12-14 17:10 | CP.PCM.PN ---
<Nitesh Cisneros - Last Filed: 12/14/16 17:07> Subjective - Date & Time of Evaluation Date of Evaluation: 12/14/16 Time of Evaluation: 17:07 - Subjective Subjective: PGY-[address] Martinez HPI: Patient seen and examined at bedside. Still states she is dizzy on standing. Has minimal back pain and shoulder pain on the Left. Besides that she is doing well with no other complaints. Needs to be evaluated with PT. Denies N/ V/D/F/Chills Objective - Vital Signs/Intake and Output Vital Signs (last 24 hours): Temp Pulse Resp BP Pulse Ox 97.9 F 66 18 109/71 95 12/14/16 16:12 12/14/16 16:12 12/14/16 16:12 12/14/16 16:12 12/14/16 16:12 - Medications Medications: Current Medications Amlodipine Besylate (Norvasc) 10 mg PO DAILY [facility] Last Admin: 12/14/16 11:36 Dose: 10 mg Aspirin (Ecotrin) 81 mg PO DAILY [facility] Last Admin: 12/14/16 11:38 Dose: 81 mg Clopidogrel Bisulfate (Plavix) 75 mg PO DAILY [facility] Last Admin: 12/14/16 11:36 Dose: 75 mg Enoxaparin Sodium (Lovenox) 40 mg SC DAILY [facility] Last Admin: 12/14/16 11:38 Dose: 40 mg Gabapentin (Neurontin) 300 mg PO DAILY [facility] Last Admin: 12/14/16 11:37 Dose: 300 mg Pantoprazole Sodium (Protonix Ec Tab) 40 mg PO DAILY [facility] Last Admin: 12/14/16 11:38 Dose: 40 mg Rosuvastatin Calcium (Crestor) 10 mg PO [facility] Last Admin: 12/13/16 22:00 Dose: 10 mg - Labs Labs: 12/13/16 06:27 12/13/16 06:27 PT 10.6 SECONDS (9.7-12.2) 12/13/16 06:27 INR 1.0 12/13/16 06:27 APTT 26 SECONDS (21-34) 12/13/16 06:27 - Constitutional Appears: Well, Non-toxic, No Acute Distress - Head Exam Head Exam: NORMAL INSPECTION - Eye Exam Eye Exam: EOMI - ENT Exam ENT Exam: Mucous Membranes Moist - Neck Exam Neck Exam: Full ROM - Respiratory Exam Respiratory Exam: Clear to Ausculation Bilateral, NORMAL BREATHING PATTERN. absent: Rhonchi, Wheezes - Cardiovascular Exam Cardiovascular Exam: REGULAR RHYTHM, RRR. absent: Bradycardia, Tachycardia, JVD , Murmur - GI/Abdominal Exam GI & Abdominal Exam: Soft, Normal Bowel Sounds. absent: Distended, Tenderness - Extremities Exam Extremities Exam: Normal Inspection. absent: Calf Tenderness, Joint Swelling, Tenderness - Back Exam Back Exam: NORMAL INSPECTION, paraspinal tenderness - Neurological Exam Neurological Exam: Alert, Awake, Oriented x3 Neuro motor strength exam: Left Upper Extremity: 4, Right Upper Extremity: 5, Left Lower Extremity: 4, Right Lower Extremity: 5 Additional comments: + spurling on the L. - Psychiatric Exam Psychiatric exam: Normal Affect, Normal Mood - Skin Skin Exam: Dry, Intact, Normal Color, Warm Assessment and Plan - Assessment and Plan (Free Text) Assessment: Weakness Dr. Burris (Neurology) - MRI brain, start NS @100, PT Eval Brain MRI - Few chronic lacunar infarcts of b/l caudate nuclei, no acute intracranial findings. Head CT- No acute intracranial abnormality MRI brain (11/24/16): no acute intracranial hemorrhage or infarct. 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 mild generalized volume loss. mild mucoperiosteal inflammatory changes right maxillary sinus Cartoid doppler (11/24/16): no acute findings MRA of neck (11/24/16) was negative MRA of Head (11/24/16) shows mild asymmetry of distal cavernous carotid segments of ICA right sided, artherosclerotic narrowing cannot be excluded; small flow related type artifact within this segement of the right cavernous cartoid artery , some localized atherosclerotic narrowing cannot be completely excluded. 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 No evidence of large aneurysm nor vascular malformation Echocardiogram (11/24/16): borderline concentric left ventricular hypertrophy. left ventricle systolic function is normal. EF: >70%, abnormal relaxation Head/ Neck CTA (11/26/16): No hemodynamically significant stenosis within the bilateral internal carotid arteries. Proximal portion of the left internal carotid artery demonstrates a retropharyngeal course. Cont ASA 81 mg, Plavix daily Evaluated by PT, still unsteady on feet. Needs Transfer to TCU, F/U with case management for approval. Chest Pain ANTOINE negative ASA 81 mg Hypertension Continue home medication: Norvasc 10mg PO daily Cont to monitor Hypercholesterolemia Improved Diet and exercise counseling reinforced Cont Crestor 10mg PO QD Prophylactic measure SCDs DVT ppx: Lovenox 40mg SC QD GI prophylaxis Pepcid 20 mg BID Heart healthy diet Neuro checks , fall risk protocol <MartinezAndrea Jones - Last Filed: 12/14/16 20:53> Objective - Vital Signs/Intake and Output Vital Signs (last 24 hours): Temp Pulse Resp BP Pulse Ox 97.9 F 60 18 109/71 95 12/14/16 16:12 12/14/16 17:55 12/14/16 16:12 12/14/16 16:12 12/14/16 16:12 - Medications Medications: Current Medications Amlodipine Besylate (Norvasc) 10 mg PO DAILY [facility] Last Admin: 12/14/16 11:36 Dose: 10 mg Aspirin (Ecotrin) 81 mg PO DAILY [facility] Last Admin: 12/14/16 11:38 Dose: 81 mg Clopidogrel Bisulfate (Plavix) 75 mg PO DAILY [facility] Last Admin: 12/14/16 11:36 Dose: 75 mg Enoxaparin Sodium (Lovenox) 40 mg SC DAILY [facility] Last Admin: 12/14/16 11:38 Dose: 40 mg Gabapentin (Neurontin) 300 mg PO DAILY [facility] Last Admin: 12/14/16 11:37 Dose: 300 mg Pantoprazole Sodium (Protonix Ec Tab) 40 mg PO DAILY [facility] Last Admin: 12/14/16 11:38 Dose: 40 mg Rosuvastatin Calcium (Crestor) 10 mg PO HS [facility] Last Admin: 12/13/16 22:00 Dose: 10 mg - Labs Labs: PT 10.6 SECONDS (9.7-12.2) 12/13/16 06:27 INR 1.0 12/13/16 06:27 APTT 26 SECONDS (21-34) 12/13/16 06:27 Attending/Attestation - Attestation I have personally seen and examined this patient.: Yes I have fully participated in the care of the patient.: Yes I have reviewed all pertinent clinical information, including history, physical exam and plan: Yes Notes (Text): 12/14/16 20:44 Patient was seen and examined at 4:45 PM with Medical Student Savannah Burgos In addition to the exam above: 5/5 strength Right UE and LE with flexion and extension 4/5 strength Left UE and LE with flexion and extension Spurling Maneuver on the Left Positive Assessments: C/O Weakness Chest Pain HTN HLD I spoke with Physical Therapist Art. Patient is able to walk with cane but is unsteady on her feet and he recommends TCU. I spoke with Appliance Servicer Edgar and she will work on this for approval. Patient is willing to go to TCU for PT. Andrea Martinez D.O.
[2016-12-15] MEDS: Pantoprazole 40 mg EC Tab PO SCH (10:10)
[2016-12-15] MEDS: Enoxaparin 40 mg Syringe SC SCH (10:11)
--- NOTE | 2016-12-15 17:03 | CP.PCM.PN ---
<Nitesh Cisneros - Last Filed: 12/15/16 18:02> Subjective - Date & Time of Evaluation Date of Evaluation: 12/15/16 Time of Evaluation: 17:01 - Subjective Subjective: PGY1 Note for Dr. Martinez HPI:Patient seen and examined at bedside. Still states she is dizzy on standing. Has minimal back pain and shoulder pain on the Left. Besides that she is doing well with no other complaints. Agrees with plan for TCU placement. Denies N/V/D/F/Chills Objective - Vital Signs/Intake and Output Vital Signs (last 24 hours): Temp Pulse Resp BP Pulse Ox 97.5 F L 69 20 127/66 97 12/15/16 16:00 12/15/16 16:08 12/15/16 16:00 12/15/16 16:00 12/15/16 16:00 Intake and Output: 12/15/16 12/15/16 06:59 18:59 Intake Total 300 830 Balance 300 830 - Medications Medications: Current Medications Amlodipine Besylate (Norvasc) 10 mg PO DAILY [facility] Last Admin: 12/15/16 10:10 Dose: 10 mg Aspirin (Ecotrin) 81 mg PO DAILY [facility] Last Admin: 12/15/16 10:10 Dose: 81 mg Clopidogrel Bisulfate (Plavix) 75 mg PO DAILY [facility] Last Admin: 12/15/16 10:10 Dose: 75 mg Enoxaparin Sodium (Lovenox) 40 mg SC DAILY [facility] Last Admin: 12/15/16 10:11 Dose: 40 mg Gabapentin (Neurontin) 300 mg PO DAILY [facility] Last Admin: 12/15/16 10:10 Dose: 300 mg Pantoprazole Sodium (Protonix Ec Tab) 40 mg PO DAILY [facility] Last Admin: 12/15/16 10:10 Dose: 40 mg Pneumococcal Polyvalent Vaccine (Pneumovax 23 Vaccine) 0.5 ml IM .ONCE ONE Stop: 12/17/16 10:01 Rosuvastatin Calcium (Crestor) 10 mg PO HS [facility] Last Admin: 12/14/16 21:20 Dose: 10 mg - Labs Labs: PT 10.6 SECONDS (9.7-12.2) 12/13/16 06:27 INR 1.0 12/13/16 06:27 APTT 26 SECONDS (21-34) 12/13/16 06:27 - Constitutional Appears: Well, Non-toxic, No Acute Distress - Head Exam Head Exam: ATRAUMATIC, NORMAL INSPECTION, NORMOCEPHALIC - Eye Exam Eye Exam: EOMI. absent: Conjunctival injection, Periorbital swelling, Periorbital tenderness Pupil Exam: NORMAL ACCOMODATION - ENT Exam ENT Exam: Mucous Membranes Moist - Respiratory Exam Respiratory Exam: Clear to Ausculation Bilateral, NORMAL BREATHING PATTERN. absent: Rales, Rhonchi, Wheezes, Stridor - Cardiovascular Exam Cardiovascular Exam: REGULAR RHYTHM, RRR. absent: Bradycardia, Tachycardia, JVD , Murmur - GI/Abdominal Exam GI & Abdominal Exam: Soft, Normal Bowel Sounds. absent: Bruit, Distended, Firm , Rigid, Tenderness - Extremities Exam Extremities Exam: absent: Calf Tenderness - Neurological Exam Neurological Exam: Alert, Awake, Oriented x3 Neuro motor strength exam: Left Upper Extremity: 4, Right Upper Extremity: 5, Left Lower Extremity: 4, Right Lower Extremity: 5 - Psychiatric Exam Psychiatric exam: Normal Affect, Normal Mood - Skin Skin Exam: Dry, Intact, Normal Color, Warm Assessment and Plan - Assessment and Plan (Free Text) Assessment: Weakness Dr. Burris (Neurology) Brain MRI - Few chronic lacunar infarcts of b/l caudate nuclei, no acute intracranial findings. Head CT- No acute intracranial abnormality MRI brain (11/24/16): no acute intracranial hemorrhage or infarct. 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 mild generalized volume loss. mild mucoperiosteal inflammatory changes right maxillary sinus Cartoid doppler (11/24/16): no acute findings MRA of neck (11/24/16) was negative MRA of Head (11/24/16) shows mild asymmetry of distal cavernous carotid segments of ICA right sided, artherosclerotic narrowing cannot be excluded; small flow related type artifact within this segement of the right cavernous cartoid artery , some localized atherosclerotic narrowing cannot be completely excluded. 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 No evidence of large aneurysm nor vascular malformation Echocardiogram (11/24/16): borderline concentric left ventricular hypertrophy. left ventricle systolic function is normal. EF: >70%, abnormal relaxation Head/ Neck CTA (11/26/16): No hemodynamically significant stenosis within the bilateral internal carotid arteries. Proximal portion of the left internal carotid artery demonstrates a retropharyngeal course. Cont ASA 81 mg, Plavix daily Evaluated by PT, still unsteady on feet. Needs Transfer to TCU, F/U with case management for approval. Chest Pain ANTOINE negative ASA 81 mg Hypertension Continue home medication: Norvasc 10mg PO daily Cont to monitor Hypercholesterolemia Improved Diet and exercise counseling reinforced Cont Crestor 10mg PO QD Prophylactic measure SCDs DVT ppx: Lovenox 40mg SC QD GI prophylaxis Pepcid 20 mg BID Heart healthy diet Neuro checks , fall risk protocol Waiting on TCU approval so we can transfer patient to rehab <Andrea Martinez - Last Filed: 12/15/16 19:37> Objective - Vital Signs/Intake and Output Vital Signs (last 24 hours): Temp Pulse Resp BP Pulse Ox 97.5 F L 69 20 127/66 97 12/15/16 16:00 12/15/16 16:08 12/15/16 16:00 12/15/16 16:00 12/15/16 16:00 Intake and Output: 12/15/16 12/16/16 18:59 06:59 Intake Total 830 Balance 830 - Medications Medications: Current Medications Amlodipine Besylate (Norvasc) 10 mg PO DAILY [facility] Last Admin: 12/15/16 10:10 Dose: 10 mg Aspirin (Ecotrin) 81 mg PO DAILY [facility] Last Admin: 12/15/16 10:10 Dose: 81 mg Clopidogrel Bisulfate (Plavix) 75 mg PO DAILY [facility] Last Admin: 12/15/16 10:10 Dose: 75 mg Docusate Sodium (Colace) 100 mg PO TID [facility] Last Admin: 12/15/16 17:29 Dose: 100 mg Enoxaparin Sodium (Lovenox) 40 mg SC DAILY [facility] Last Admin: 12/15/16 10:11 Dose: 40 mg Gabapentin (Neurontin) 300 mg PO DAILY [facility] Last Admin: 12/15/16 10:10 Dose: 300 mg Pantoprazole Sodium (Protonix Ec Tab) 40 mg PO DAILY [facility] Last Admin: 12/15/16 10:10 Dose: 40 mg Pneumococcal Polyvalent Vaccine (Pneumovax 23 Vaccine) 0.5 ml IM .ONCE ONE Stop: 12/17/16 10:01 Rosuvastatin Calcium (Crestor) 10 mg PO HS [facility] Last Admin: 12/14/16 21:20 Dose: 10 mg - Labs Labs: PT 10.6 SECONDS (9.7-12.2) 12/13/16 06:27 INR 1.0 12/13/16 06:27 APTT 26 SECONDS (21-34) 12/13/16 06:27 Attending/Attestation - Attestation I have personally seen and examined this patient.: Yes I have fully participated in the care of the patient.: Yes I have reviewed all pertinent clinical information, including history, physical exam and plan: Yes Notes (Text): 12/15/16 19:36 Patient was seen and examined at 5 PM 12/15/16 In addition to the exam above: 5/5 strength Right UE and LE with flexion and extension 4/5 strength Left UE and LE with flexion and extension Spurling Maneuver on the Left Positive Assessments: C/O Weakness Chest Pain HTN HLD I spoke with Physical Therapist Art on 12/14/16: patient is able to walk with cane but is unsteady on her feet and he recommended TCU. I spoke with Seed Expert Edgar and she informed me that insurance approval for TCU was still pending at this time.
--- NOTE | 2016-12-16 03:21 | CP.PCM.PN ---
<Vitaly Steen - Last Filed: 12/16/16 03:13> Subjective - Date & Time of Evaluation Date of Evaluation: 12/16/16 Time of Evaluation: 03:13 - Subjective Subjective: PGY1 Medicine note for Dr. Luis A Martinez Patient seen and examined at bedside overnight. Patient states that she is still experiencing some back spasms that radiates to her left shoulder. Otherwise the patient states that she has no complaints. She is eager to leave the hospital and transfer to TCU. Denies f/c, n/v, d/c, sob or cp. Objective - Vital Signs/Intake and Output Vital Signs (last 24 hours): Temp Pulse Resp BP Pulse Ox 97.5 F L 64 20 123/73 96 12/15/16 23:35 12/16/16 00:46 12/15/16 23:35 12/15/16 23:35 12/15/16 23:35 Intake and Output: 12/15/16 12/16/16 18:59 06:59 Intake Total 830 500 Balance 830 500 - Medications Medications: Current Medications Amlodipine Besylate (Norvasc) 10 mg PO DAILY [facility] Last Admin: 12/15/16 10:10 Dose: 10 mg Aspirin (Ecotrin) 81 mg PO DAILY [facility] Last Admin: 12/15/16 10:10 Dose: 81 mg Clopidogrel Bisulfate (Plavix) 75 mg PO DAILY [facility] Last Admin: 12/15/16 10:10 Dose: 75 mg Docusate Sodium (Colace) 100 mg PO TID [facility] Last Admin: 12/15/16 17:29 Dose: 100 mg Enoxaparin Sodium (Lovenox) 40 mg SC DAILY [facility] Last Admin: 12/15/16 10:11 Dose: 40 mg Gabapentin (Neurontin) 300 mg PO DAILY [facility] Last Admin: 12/15/16 10:10 Dose: 300 mg Pantoprazole Sodium (Protonix Ec Tab) 40 mg PO DAILY [facility] Last Admin: 12/15/16 10:10 Dose: 40 mg Pneumococcal Polyvalent Vaccine (Pneumovax 23 Vaccine) 0.5 ml IM .ONCE ONE Stop: 12/17/16 10:01 Rosuvastatin Calcium (Crestor) 10 mg PO HS [facility] Last Admin: 12/15/16 21:24 Dose: 10 mg - Labs Labs: PT 10.6 SECONDS (9.7-12.2) 12/13/16 06:27 INR 1.0 12/13/16 06:27 APTT 26 SECONDS (21-34) 12/13/16 06:27 - Constitutional Appears: Non-toxic, No Acute Distress - Head Exam Head Exam: ATRAUMATIC, NORMOCEPHALIC - ENT Exam ENT Exam: Mucous Membranes Moist - Respiratory Exam Respiratory Exam: Clear to Ausculation Bilateral, NORMAL BREATHING PATTERN. absent: Accessory Muscle Use, Wheezes, Respiratory Distress - GI/Abdominal Exam GI & Abdominal Exam: Soft, Normal Bowel Sounds. absent: Distended, Guarding, Rigid, Tenderness - Extremities Exam Extremities Exam: Normal Inspection. absent: Calf Tenderness, Pedal Edema - Neurological Exam Neurological Exam: Alert, Awake, Oriented x3 - Psychiatric Exam Psychiatric exam: Normal Affect, Normal Mood - Skin Skin Exam: Dry, Normal Color, Warm Assessment and Plan - Assessment and Plan (Free Text) Plan: Weakness Dr. Burris (Neurology) Brain MRI - Few chronic lacunar infarcts of b/l caudate nuclei, no acute intracranial findings. Head CT- No acute intracranial abnormality MRI brain (11/24/16): no acute intracranial hemorrhage or infarct. 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 mild generalized volume loss. mild mucoperiosteal inflammatory changes right maxillary sinus Cartoid doppler (11/24/16): no acute findings MRA of neck (11/24/16) was negative MRA of Head (11/24/16) shows mild asymmetry of distal cavernous carotid segments of ICA right sided, artherosclerotic narrowing cannot be excluded; small flow related type artifact within this segement of the right cavernous cartoid artery , some localized atherosclerotic narrowing cannot be completely excluded. 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 No evidence of large aneurysm nor vascular malformation Echocardiogram (11/24/16): borderline concentric left ventricular hypertrophy. left ventricle systolic function is normal. EF: >70%, abnormal relaxation Head/ Neck CTA (11/26/16): No hemodynamically significant stenosis within the bilateral internal carotid arteries. Proximal portion of the left internal carotid artery demonstrates a retropharyngeal course. Cont ASA 81 mg, Plavix daily Evaluated by PT, still unsteady on feet. Needs Transfer to TCU, F/U with case management for approval. Chest Pain ANTOINE negative ASA 81 mg Hypertension Continue home medication: Norvasc 10mg PO daily Cont to monitor Hypercholesterolemia Improved Diet and exercise counseling reinforced Cont Crestor 10mg PO QD Prophylactic measure SCDs DVT ppx: Lovenox 40mg SC QD GI prophylaxis Pepcid 20 mg BID Heart healthy diet Neuro checks , fall risk protocol Waiting on TCU approval so we can transfer patient to rehab <Andrea Martinez - Last Filed: 12/16/16 20:08> Objective - Vital Signs/Intake and Output Vital Signs (last 24 hours): Temp Pulse Resp BP Pulse Ox 97.4 F L 65 18 121/75 97 12/16/16 16:00 12/16/16 16:15 12/16/16 16:00 12/16/16 16:00 12/16/16 16:00 - Medications Medications: Current Medications Amlodipine Besylate (Norvasc) 10 mg PO DAILY [facility] Last Admin: 12/16/16 09:44 Dose: 10 mg Aspirin (Ecotrin) 81 mg PO DAILY [facility] Last Admin: 12/16/16 09:45 Dose: 81 mg Clopidogrel Bisulfate (Plavix) 75 mg PO DAILY [facility] Last Admin: 12/16/16 09:45 Dose: 75 mg Docusate Sodium (Colace) 100 mg PO TID [facility] Last Admin: 12/16/16 17:10 Dose: 100 mg Enoxaparin Sodium (Lovenox) 40 mg SC DAILY [facility] Last Admin: 12/16/16 09:45 Dose: 40 mg Gabapentin (Neurontin) 300 mg PO DAILY [facility] Last Admin: 12/16/16 09:45 Dose: 300 mg Pantoprazole Sodium (Protonix Ec Tab) 40 mg PO DAILY [facility] Last Admin: 12/16/16 09:45 Dose: 40 mg Pneumococcal Polyvalent Vaccine (Pneumovax 23 Vaccine) 0.5 ml IM .ONCE ONE Stop: 12/17/16 10:01 Rosuvastatin Calcium (Crestor) 10 mg PO HS [facility] Last Admin: 12/15/16 21:24 Dose: 10 mg Simethicone (Mylicon Chew Tab) 80 mg PO Q6 [facility] Last Admin: 12/16/16 17:10 Dose: 80 mg - Labs Labs: PT 10.6 SECONDS (9.7-12.2) 12/13/16 06:27 INR 1.0 12/13/16 06:27 APTT 26 SECONDS (21-34) 12/13/16 06:27 Attending/Attestation - Attestation I have personally seen and examined this patient.: Yes I have fully participated in the care of the patient.: Yes I have reviewed all pertinent clinical information, including history, physical exam and plan: Yes Notes (Text): 12/16/16 20:05 Patient was seen and examined at 3 PM 12/16/16 Upon ROS: There are NO complaints upon FULL ROS other than wanted to get to TCU. Exam is unremarkable except for the persistent 4/5 strength with flexion and extension in the left UE and left LE Assessments: C/O Weakness Chest Pain HTN HLD HX TIA I spoke with Physical Therapist Art on 12/14/16: patient is able to walk with cane but is unsteady on her feet and he recommended TCU. Insurance approval for TCU is still pending at this time. Wagner GriffithO
[2016-12-16] MEDS: Enoxaparin 40 mg Syringe SC SCH (09:45)
[2016-12-16] MEDS: Pantoprazole 40 mg EC Tab PO SCH (09:45)
[2016-12-16] MEDS: Simethicone 80 mg Chewtab PO SCH ×2 (13:15→17:10)
[2016-12-17] MEDS: Simethicone 80 mg Chewtab PO SCH ×3 (07:21→17:13)
--- NOTE | 2016-12-17 08:46 | CP.PCM.PN ---
<Vitaly Steen - Last Filed: 12/17/16 08:42> Subjective - Date & Time of Evaluation Date of Evaluation: 12/17/16 Time of Evaluation: 08:43 - Subjective Subjective: PGY1 Medicine note for Dr. Luis A Martinez Patient seen and examined at bedside overnight. Patient states that she is feeling relatively well. Patient currently has no complaints. She is eager to leave the hospital and be transferred to TCU. Denies f/c, n/v, d/c, sob or cp. Objective - Vital Signs/Intake and Output Vital Signs (last 24 hours): Temp Pulse Resp BP Pulse Ox 97 F L 67 20 111/75 97 12/17/16 08:36 12/17/16 08:36 12/17/16 08:36 12/17/16 08:36 12/17/16 08:36 Intake and Output: 12/17/16 12/17/16 06:59 18:59 Intake Total 740 Balance 740 - Medications Medications: Current Medications Amlodipine Besylate (Norvasc) 10 mg PO DAILY [facility] Last Admin: 12/16/16 09:44 Dose: 10 mg Aspirin (Ecotrin) 81 mg PO DAILY [facility] Last Admin: 12/16/16 09:45 Dose: 81 mg Clopidogrel Bisulfate (Plavix) 75 mg PO DAILY [facility] Last Admin: 12/16/16 09:45 Dose: 75 mg Docusate Sodium (Colace) 100 mg PO TID [facility] Last Admin: 12/16/16 17:10 Dose: 100 mg Enoxaparin Sodium (Lovenox) 40 mg SC DAILY [facility] Last Admin: 12/16/16 09:45 Dose: 40 mg Gabapentin (Neurontin) 300 mg PO DAILY [facility] Last Admin: 12/16/16 09:45 Dose: 300 mg Pantoprazole Sodium (Protonix Ec Tab) 40 mg PO DAILY [facility] Last Admin: 12/16/16 09:45 Dose: 40 mg Pneumococcal Polyvalent Vaccine (Pneumovax 23 Vaccine) 0.5 ml IM .ONCE ONE Stop: 12/17/16 10:01 Rosuvastatin Calcium (Crestor) 10 mg PO HS [facility] Last Admin: 12/16/16 21:06 Dose: 10 mg Simethicone (Mylicon Chew Tab) 80 mg PO Q6 [facility] Last Admin: 12/17/16 07:21 Dose: Not Given - Labs Labs: PT 10.6 SECONDS (9.7-12.2) 12/13/16 06:27 INR 1.0 12/13/16 06:27 APTT 26 SECONDS (21-34) 12/13/16 06:27 - Constitutional Appears: Non-toxic, No Acute Distress - Head Exam Head Exam: ATRAUMATIC, NORMOCEPHALIC - Eye Exam Eye Exam: EOMI - ENT Exam ENT Exam: Mucous Membranes Moist - Respiratory Exam Respiratory Exam: Clear to Ausculation Bilateral, NORMAL BREATHING PATTERN. absent: Accessory Muscle Use, Wheezes, Respiratory Distress - Cardiovascular Exam Cardiovascular Exam: +S1, +S2 - GI/Abdominal Exam GI & Abdominal Exam: Soft, Normal Bowel Sounds. absent: Distended, Firm, Guarding, Rigid, Tenderness - Extremities Exam Extremities Exam: Normal Inspection. absent: Calf Tenderness, Pedal Edema - Neurological Exam Neurological Exam: Alert, Awake, Oriented x3 - Psychiatric Exam Psychiatric exam: Normal Affect, Normal Mood - Skin Skin Exam: Dry, Normal Color, Warm Assessment and Plan - Assessment and Plan (Free Text) Plan: No new updates at this time. Patient still waiting to be transferred pending TCU approval. Weakness Dr. Burris (Neurology) Brain MRI - Few chronic lacunar infarcts of b/l caudate nuclei, no acute intracranial findings. Head CT- No acute intracranial abnormality MRI brain (11/24/16): no acute intracranial hemorrhage or infarct. 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 mild generalized volume loss. mild mucoperiosteal inflammatory changes right maxillary sinus Cartoid doppler (11/24/16): no acute findings MRA of neck (11/24/16) was negative MRA of Head (11/24/16) shows mild asymmetry of distal cavernous carotid segments of ICA right sided, artherosclerotic narrowing cannot be excluded; small flow related type artifact within this segement of the right cavernous cartoid artery , some localized atherosclerotic narrowing cannot be completely excluded. 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 No evidence of large aneurysm nor vascular malformation Echocardiogram (11/24/16): borderline concentric left ventricular hypertrophy. left ventricle systolic function is normal. EF: >70%, abnormal relaxation Head/ Neck CTA (11/26/16): No hemodynamically significant stenosis within the bilateral internal carotid arteries. Proximal portion of the left internal carotid artery demonstrates a retropharyngeal course. Cont ASA 81 mg, Plavix daily Evaluated by PT, still unsteady on feet. Needs Transfer to TCU, F/U with case management for approval. Chest Pain ANTOINE negative ASA 81 mg Hypertension Continue home medication: Norvasc 10mg PO daily Cont to monitor Hypercholesterolemia Improved Diet and exercise counseling reinforced Cont Crestor 10mg PO QD Prophylactic measure SCDs DVT ppx: Lovenox 40mg SC QD GI prophylaxis Pepcid 20 mg BID Heart healthy diet Neuro checks , fall risk protocol Will discuss case with Dr. Luis A Haider Enio PGY1 <Andrea Martinez - Last Filed: 12/17/16 20:40> Objective - Vital Signs/Intake and Output Vital Signs (last 24 hours): Temp Pulse Resp BP Pulse Ox 97.3 F L 63 18 117/71 96 12/17/16 15:56 12/17/16 18:00 12/17/16 15:56 12/17/16 15:56 12/17/16 15:56 - Medications Medications: Current Medications Amlodipine Besylate (Norvasc) 10 mg PO DAILY [facility] Last Admin: 12/17/16 10:06 Dose: 10 mg Aspirin (Ecotrin) 81 mg PO DAILY [facility] Last Admin: 12/17/16 10:06 Dose: 81 mg Clopidogrel Bisulfate (Plavix) 75 mg PO DAILY [facility] Last Admin: 12/17/16 10:05 Dose: 75 mg Docusate Sodium (Colace) 100 mg PO TID [facility] Last Admin: 12/17/16 17:14 Dose: 100 mg Enoxaparin Sodium (Lovenox) 40 mg SC DAILY [facility] Last Admin: 12/17/16 10:05 Dose: 40 mg Gabapentin (Neurontin) 300 mg PO DAILY [facility] Last Admin: 12/17/16 10:06 Dose: 300 mg Pantoprazole Sodium (Protonix Ec Tab) 40 mg PO DAILY [facility] Last Admin: 12/17/16 10:05 Dose: 40 mg Rosuvastatin Calcium (Crestor) 10 mg PO HS [facility] Last Admin: 12/16/16 21:06 Dose: 10 mg Simethicone (Mylicon Chew Tab) 80 mg PO Q6 [facility] Last Admin: 12/17/16 17:13 Dose: 80 mg - Labs Labs: PT 10.6 SECONDS (9.7-12.2) 12/13/16 06:27 INR 1.0 12/13/16 06:27 APTT 26 SECONDS (21-34) 12/13/16 06:27 Attending/Attestation - Attestation I have personally seen and examined this patient.: Yes I have fully participated in the care of the patient.: Yes I have reviewed all pertinent clinical information, including history, physical exam and plan: Yes Notes (Text): 12/17/16 20:36 Patient was seen and examined at 6 PM 12/17/16 Upon ROS: There are NO complaints upon FULL ROS other than wanted to get to TCU. Exam is unremarkable except for the persistent 4/5 strength with flexion and extension in the left UE and left LE Assessments: C/O Weakness Chest Pain HTN HLD HX TIA I spoke with Physical Therapist Art on 12/14/16: patient is able to walk with cane but is unsteady on her feet and he recommended TCU. Insurance approval for TCU is still pending at this time. Andrea Martinez D.O.
[2016-12-17] MEDS ORDERED: Pneumococcal 23-Valent Vaccine IM ONE (10:00)
[2016-12-17] MEDS: Pantoprazole 40 mg EC Tab PO SCH (10:05)
[2016-12-17] MEDS: Enoxaparin 40 mg Syringe SC SCH (10:05)
[2016-12-18 00:23] VITALS: TEMP 97.7
[2016-12-18] MEDS: Simethicone 80 mg Chewtab PO SCH ×3 (00:51→13:53)
[2016-12-18 08:35] VITALS: BP 109/60; RESP 19; O2SAT 96
[2016-12-18] MEDS: Enoxaparin 40 mg Syringe SC SCH (09:53)
[2016-12-18] MEDS: Pantoprazole 40 mg EC Tab PO SCH (09:53)
[2016-12-18 10:52] VITALS: PULSE 58
[2016-12-18] MEDS ORDERED: Tramadol 25 mg PO PRN (13:15)
--- NOTE | 2016-12-18 19:34 | CP.PCM.DIS ---
<Nitesh Cisneros - Last Filed: 12/18/16 19:31> Provider - Provider Date of Admission: 12/14/16 16:58 Attending physician: Andrea Martinez MD Primary care physician: Ree Consults: Neuro: Korya Time Spent in preparation of Discharge (in minutes): 60 Hospital Course - Lab Results Lab Results: Micro Results 12/14/16 Unknown Nose MRSA Culture - Final MRSA NOT DETECTED Most Recent Lab Values WBC 6.7 K/uL (4.8-10.8) 12/13/16 06:27 RBC 4.74 Mil/uL (3.80-5.20) 12/13/16 06:27 Hgb 13.3 g/dL (11.0-16.0) 12/13/16 06:27 Hct 40.1 % (34.0-47.0) 12/13/16 06:27 MCV 84.5 fL (81.0-99.0) 12/13/16 06:27 MCH 28.0 pg (27.0-31.0) 12/13/16 06:27 MCHC 33.1 g/dL (33.0-37.0) 12/13/16 06:27 RDW 14.7 % (11.5-14.5) H 12/13/16 06:27 Plt Count 422 K/uL (130-400) H 12/13/16 06:27 MPV 7.7 fL (7.2-11.7) 12/13/16 06:27 Neut % (Auto) 41.8 % (50.0-75.0) L 12/13/16 06:27 Lymph % (Auto) 46.2 % (20.0-40.0) H 12/13/16 06:27 Ferry % (Auto) 7.9 % (0.0-10.0) 12/13/16 06:27 Eos % (Auto) 3.7 % (0.0-4.0) 12/13/16 06:27 Baso % (Auto) 0.4 % (0.0-2.0) 12/13/16 06:27 Neut # 2.8 K/uL (1.8-7.0) 12/13/16 06:27 Lymph # 3.1 K/uL (1.0-4.3) 12/13/16 06:27 Ferry # 0.5 K/uL (0.0-0.8) 12/13/16 06:27 Eos # 0.2 K/uL (0.0-0.7) 12/13/16 06:27 Baso # 0.0 K/uL (0.0-0.2) 12/13/16 06:27 PT 10.6 SECONDS (9.7-12.2) 12/13/16 06:27 INR 1.0 12/13/16 06:27 APTT 26 SECONDS (21-34) 12/13/16 06:27 Sodium 137 mmol/L (132-148) 12/13/16 06:27 Potassium 4.0 mmol/L (3.6-5.2) 12/13/16 06:27 Chloride 103 mmol/L (98-107) 12/13/16 06:27 Carbon Dioxide 20 mmol/L (22-30) L 12/13/16 06:27 Anion Gap 18 (10-20) 12/13/16 06:27 BUN 12 mg/dL (7-17) 12/13/16 06:27 Creatinine 0.5 MG/DL (0.7-1.2) L 12/13/16 06:27 Est GFR ( Amer) > 60 12/13/16 06:27 Est GFR (Non-Af Amer) > 60 12/13/16 06:27 POC Glucose (mg/dL) 90 mg/dL (65-110) 12/16/16 12:05 Random Glucose 75 mg/dL (65-105) 12/13/16 06:27 Hemoglobin A1c 5.9 % (4.2-6.5) 12/12/16 21:05 Calcium 9.3 mg/dl (8.6-10.4) 12/13/16 06:27 Phosphorus 4.5 mg/dL (2.5-4.5) 12/13/16 06:27 Magnesium 1.9 mg/dL (1.6-2.3) 12/13/16 06:27 Total Bilirubin 0.6 mg/dL (0.2-1.3) 12/13/16 06:27 AST 34 U/L (14-36) 12/13/16 06:27 ALT 49 U/L (9-52) 12/13/16 06:27 Alkaline Phosphatase 109 U/L (38-126) 12/13/16 06:27 Total Creatine Kinase 65 U/L (30-135) 12/13/16 13:12 CK-MB (Mass) 0.48 ng/mL (0.0-3.38) 12/13/16 13:12 Troponin I < 0.0120 ng/mL (0.00-0.120) 12/12/16 21:05 Troponin I, Quant < 0.0120 ng/mL (0.00-0.120) 12/13/16 13:12 Total Protein 7.1 g/dL (6.3-8.3) 12/13/16 06:27 Albumin 3.8 g/dL (3.5-5.0) 12/13/16 06:27 Globulin 3.4 gm/dL (2.2-3.9) 12/13/16 06:27 Albumin/Globulin Ratio 1.1 (1.0-2.1) 12/13/16 06:27 Triglycerides 185 mg/dL (0-149) H D 12/12/16 21:05 Cholesterol 156 mg/dL (0-199) 12/12/16 21:05 LDL Cholesterol Direct 81 mg/dL (0-129) 12/12/16 21:05 HDL Cholesterol 58 mg/dL (30-70) 12/12/16 21:05 Free T4 0.87 ng/dL (0.78-2.19) 12/13/16 06:27 TSH 3rd Generation 3.48 mIU/L (0.46-4.68) 12/13/16 06:27 - Hospital Course Hospital Course: 66 year old female with PMHx significant for HTN, hypercholesterolemia, hemorrhoids, colonic polyps, gastritis and hernia presents with chief complaint of left sided unilateral weakness for two week duration. Patient states that her symptoms started around 6 pm prior to arriving at the ED. Patient was last seen here in November for a similar workup after experiencing numbness and headache. She states that she was asked to come back to the emergency room if her symptoms returned. Though her symptoms improved over the course of her hospital stay during the prior admission, patient states that her symptoms worsened after she arrived at home. Patient admits to headaches, vision changes , chest pain, palpitations, nausea, back pain, and feeling bloated as well. She denies vomiting, recent travel or sickness, diarrhea or constipation at this time. Pt had repeat imaging with a CT of the Head as well as a MRI of the brain, both of which showed no acute changes. The patient was seen and evaluated by physical therapy. She will need more PT if she is to return to her baseline. We will set up visiting PT to her home to let her get her strength back. - Date & Time of H&P Date of H&P: 12/13/16 Time of H&P: 01:20 Discharge Exam - Head Exam Head Exam: ATRAUMATIC, NORMAL INSPECTION, NORMOCEPHALIC - Eye Exam Eye Exam: EOMI, Normal appearance - ENT Exam ENT Exam: Mucous Membranes Moist - Neck Exam Additional comments: spurling maneuver + for L. sided radicular sx - Respiratory Exam Respiratory Exam: Clear to PA & Lateral - Cardiovascular Exam Cardiovascular Exam: REGULAR RHYTHM - GI/Abdominal Exam GI & Abdominal Exam: Normal Bowel Sounds, Soft. absent: Distended, Firm, Tenderness - Neurological Exam Neurological exam: Alert, CN II-XII Intact, Oriented x3 Additional comments: Muscle strength 5/5 bilaterally - Psychiatric Exam Psychiatric exam: Normal Affect, Normal Mood - Skin Skin Exam: Dry, Intact, Normal Color, Warm Discharge Plan - Discharge Medications Prescriptions: amLODIPine [Norvasc] 10 mg PO DAILY #30 tab Clopidogrel [Plavix] 75 mg PO DAILY #30 tab Docusate [Colace] 100 mg PO TID #120 cap Gabapentin [Neurontin] 300 mg PO DAILY 30 Days Gabapentin 300 mg PO DAILY #30 Rosuvastatin Calcium [Crestor] 10 mg PO HS #30 tab - Follow Up Plan Condition: GOOD Disposition: DISCHARGED TO HOME CARE Instructions: Laxative, Stool Softeners (By mouth), Gabapentin (By mouth), Amlodipine (By mouth), Clopidogrel (By mouth), Rosuvastatin (By mouth), Fall Prevention for Older Adults (GEN), Weakness (GEN), Stroke (DC) Additional Instructions: Paciente estable para dealta a la casa. Paciente debe de regresar a la yaakov de emergencia si los simptomas regresan. Paciente va recivir terapia fisica en la casa por debilidad. Clinical Quality Measures - CQM - Stroke Statin prescribed: Yes - CQM - Heart Failure Will be discharged to: Home Follow Up Date (must be within 7 days from discharge): 12/25/16 Follow Up Time: 09:00 - Date & Time of Discharge Summary Date of Discharge Summary: 12/18/16 Time of Discharge Summary: 19:38 <AriellaJuan manzanares - Last Filed: 01/02/17 12:38> Provider - Provider Date of Admission: 12/14/16 16:58 Attending physician: Andrea Martinez MD Hospital Course - Lab Results Lab Results: Micro Results 12/14/16 Unknown Nose MRSA Culture - Final MRSA NOT DETECTED Most Recent Lab Values WBC 6.7 K/uL (4.8-10.8) 12/13/16 06:27 RBC 4.74 Mil/uL (3.80-5.20) 12/13/16 06:27 Hgb 13.3 g/dL (11.0-16.0) 12/13/16 06:27 Hct 40.1 % (34.0-47.0) 12/13/16 06:27 MCV 84.5 fL (81.0-99.0) 12/13/16 06:27 MCH 28.0 pg (27.0-31.0) 12/13/16 06:27 MCHC 33.1 g/dL (33.0-37.0) 12/13/16 06:27 RDW 14.7 % (11.5-14.5) H 12/13/16 06:27 Plt Count 422 K/uL (130-400) H 12/13/16 06:27 MPV 7.7 fL (7.2-11.7) 12/13/16 06:27 Neut % (Auto) 41.8 % (50.0-75.0) L 12/13/16 06:27 Lymph % (Auto) 46.2 % (20.0-40.0) H 12/13/16 06:27 Ferry % (Auto) 7.9 % (0.0-10.0) 12/13/16 06:27 Eos % (Auto) 3.7 % (0.0-4.0) 12/13/16 06:27 Baso % (Auto) 0.4 % (0.0-2.0) 12/13/16 06:27 Neut # 2.8 K/uL (1.8-7.0) 12/13/16 06:27 Lymph # 3.1 K/uL (1.0-4.3) 12/13/16 06:27 Ferry # 0.5 K/uL (0.0-0.8) 12/13/16 06:27 Eos # 0.2 K/uL (0.0-0.7) 12/13/16 06:27 Baso # 0.0 K/uL (0.0-0.2) 12/13/16 06:27 PT 10.6 SECONDS (9.7-12.2) 12/13/16 06:27 INR 1.0 12/13/16 06:27 APTT 26 SECONDS (21-34) 12/13/16 06:27 Sodium 137 mmol/L (132-148) 12/13/16 06:27 Potassium 4.0 mmol/L (3.6-5.2) 12/13/16 06:27 Chloride 103 mmol/L (98-107) 12/13/16 06:27 Carbon Dioxide 20 mmol/L (22-30) L 12/13/16 06:27 Anion Gap 18 (10-20) 12/13/16 06:27 BUN 12 mg/dL (7-17) 12/13/16 06:27 Creatinine 0.5 MG/DL (0.7-1.2) L 12/13/16 06:27 Est GFR ( Amer) > 60 12/13/16 06:27 Est GFR (Non-Af Amer) > 60 12/13/16 06:27 POC Glucose (mg/dL) 90 mg/dL (65-110) 12/16/16 12:05 Random Glucose 75 mg/dL (65-105) 12/13/16 06:27 Hemoglobin A1c 5.9 % (4.2-6.5) 12/12/16 21:05 Calcium 9.3 mg/dl (8.6-10.4) 12/13/16 06:27 Phosphorus 4.5 mg/dL (2.5-4.5) 12/13/16 06:27 Magnesium 1.9 mg/dL (1.6-2.3) 12/13/16 06:27 Total Bilirubin 0.6 mg/dL (0.2-1.3) 12/13/16 06:27 AST 34 U/L (14-36) 12/13/16 06:27 ALT 49 U/L (9-52) 12/13/16 06:27 Alkaline Phosphatase 109 U/L (38-126) 12/13/16 06:27 Total Creatine Kinase 65 U/L (30-135) 12/13/16 13:12 CK-MB (Mass) 0.48 ng/mL (0.0-3.38) 12/13/16 13:12 Troponin I < 0.0120 ng/mL (0.00-0.120) 12/12/16 21:05 Troponin I, Quant < 0.0120 ng/mL (0.00-0.120) 12/13/16 13:12 Total Protein 7.1 g/dL (6.3-8.3) 12/13/16 06:27 Albumin 3.8 g/dL (3.5-5.0) 12/13/16 06:27 Globulin 3.4 gm/dL (2.2-3.9) 12/13/16 06:27 Albumin/Globulin Ratio 1.1 (1.0-2.1) 12/13/16 06:27 Triglycerides 185 mg/dL (0-149) H D 12/12/16 21:05 Cholesterol 156 mg/dL (0-199) 12/12/16 21:05 LDL Cholesterol Direct 81 mg/dL (0-129) 12/12/16 21:05 HDL Cholesterol 58 mg/dL (30-70) 12/12/16 21:05 Free T4 0.87 ng/dL (0.78-2.19) 12/13/16 06:27 TSH 3rd Generation 3.48 mIU/L (0.46-4.68) 12/13/16 06:27 Attending/Attestation - Attestation I have personally seen and examined this patient.: Yes I have fully participated in the care of the patient.: Yes I have reviewed all pertinent clinical information, including history, physical exam and plan: Yes Notes (Text): 66 year old female with PMHx significant for HTN, hypercholesterolemia, hemorrhoids, colonic polyps, gastritis and hernia presents with chief complaint of left sided unilateral weakness for two week duration. Patient states that her symptoms started around 6 pm prior to arriving at the ED. Patient was last seen here in November for a similar workup after experiencing numbness and headache. She states that she was asked to come back to the emergency room if her symptoms returned. Though her symptoms improved over the course of her hospital stay during the prior admission, patient states that her symptoms worsened after she arrived at home. Patient admits to headaches, vision changes , chest pain, palpitations, nausea, back pain, and feeling bloated as well. She denies vomiting, recent travel or sickness, diarrhea or constipation at this time. Pt had repeat imaging with a CT of the Head as well as a MRI of the brain, both of which showed no acute changes. The patient was seen and evaluated by physical therapy. She will need more PT if she is to return to her baseline. We will set up visiting PT to her home to let her get her strength back.
--- NOTE | 2016-12-26 20:33 | CARD ---
APPROVED REPORT EKG Measurement Heart [id number] <Conclusion> Normal sinus rhythm Normal ECG
== END 2016-12-18 16:39 | disposition home health service (06) | DRG 35 ==
LOC: C.ER 18:50 → C.9E 22:22 → C.9I 12-13 01:11 → C.5T 12-14 03:25 → OBSVTOIN 12-14 16:58
PROVIDERS: ADMIT Family Medicine; ATTEND Family Medicine
DX: R26.81 Unsteadiness on feet (principal); R53.1 Weakness; R51 Headache; I10 Essential (primary) hypertension; R07.89 Other chest pain; E78.00 Pure hypercholesterolemia, unspecified; E78.5 Hyperlipidemia, unspecified; Z86.73 Personal history of transient ischemic attack (TIA), and cerebral infarction without residual deficits; Z86.010 Personal history of colon polyps; Z79.02 Long term (current) use of antithrombotics/antiplatelets; Z79.82 Long term (current) use of aspirin; Z90.49 Acquired absence of other specified parts of digestive tract

== ENCOUNTER 2017-06-25 19:11 | Inpatient (IN) | payer MEDICAID ==
[2017-06-25] MEDS ORDERED: Iodixanol 320 MG/ML 100 ML BOTTLE IV ONE (20:07)
[2017-06-25 20:10] VITALS: BMI 35.4
--- NOTE | 2017-06-25 20:27 | C.PDOC ---
History Of Present Illness 66 year old female presents to the ED for evaluation of facial droop, intermittent difficultly speaking, and headache since approximately 17:00 tonight. Patient is a poor historian. Patient endorses left sided upper and lower extremity weakness. She states that the left side of her face feels heavy. She notes that the headache has been worsening since onset. Patient notes that she had a TIA in December 2016. 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[employer]) History/Exam Limitations: other (poor historian) Onset/Duration Of Symptoms: Hrs Current Symptoms Are (Timing): Still Present Quality: "Pain" Preceeding Symptoms: None Associated Symptoms: Extremity Weakness Past Medical History Reviewed: Historical Data, Nursing Documentation, Vital Signs Vital Signs: Last Vital Signs Temp 98 F 06/25/17 19:59 Pulse 89 06/26/17 00:17 Resp 20 06/26/17 00:17 BP 130/60 06/26/17 00:17 Pulse Ox 100 06/26/17 00:17 - Medical History PMH: Arthritis, Colonic Polyps, Gastritis, Gall Bladder Disease, HTN, Hypercholesterolemia, TIA Denies: Chronic Kidney Disease Surgical History: Cholecystectomy, Endoscopy - [facility] Procedures ESOPHAGOGASTRODUODENOSCOPY [EGD] W/CLOSED BIOPSY (04/23/14) Family History: States: Unknown Family Hx - Social History Hx Tobacco Use: No Hx Alcohol Use: No Hx Substance Use: No - Immunization History Hx Tetanus Toxoid Vaccination: No Hx Influenza Vaccination: No Hx Pneumococcal Vaccination: No Review Of Systems Except As Marked, All Systems Reviewed And Found Negative. Constitutional: Negative for: Fever, Chills ENT: Negative for: Ear Pain, Throat Pain Respiratory: Negative for: Shortness of Breath Gastrointestinal: Negative for: Nausea, Vomiting, Abdominal Pain, Diarrhea Skin: Negative for: Rash Neurological: Positive for: Weakness, Change in Speech (Difficulty Speaking), Headache Physical Exam - Physical Exam Appears: Well, Non-toxic, No Acute Distress Skin: Normal Color, Warm, Dry Head: Atraumatic, Normacephalic Eye(s): bilateral: Normal Inspection, PERRL, EOMI Oral Mucosa: Moist Tongue: Normal Appearing, Other (Moving tongue normally) Lips: Normal Appearing Throat: Normal Neck: Normal, Normal ROM, Supple Cardiovascular: Rhythm Regular Respiratory: Normal Breath Sounds Gastrointestinal/Abdominal: Soft, No Tenderness Neurological/Psych: Oriented x3, Normal Speech, Normal Cranial Nerves, No Normal Motor (4/5 strength in left lower and left upper extremity), Other (Mild left pronator drift) Other Neurological Findings: No Facial Palsy, No Tongue Deviation Extremity: Left: No Drift ED Course And Treatment - Laboratory Results Result Diagrams: 06/25/17 20:46 06/25/17 20:46 ECG: Interpreted By Me, Viewed By Me Interpretation Of ECG: Normal sinus rhythm with slight axis deviation, Q waves in III and aVf with poor R wave progression in V1-V3, when compared to old EKG from December 2016 there appears to be new Q waves in III and aVf suggestive of inferior wall IN, age indeterminate O2 Sat by Pulse Oximetry: 99 (on RA) - CT Scan/US CTA and Head CT Other Rad Studies (CT/US): Read By Radiologist, Radiology Report Reviewed CT/US Interpretation: CTA brain and plain CT are both negative. No acute ischemic brain pathology. NIHSS Stroke Scale - How Severe is the Stoke Level of Consciousness: 0=Alert LOC to Questions: 0=Both comments correct LOC to commands: 0=Obeys both correctly Best Gaze: 0=Normal Visual: 0=No visual loss Facial: 0=Normal Motor Arm - Left: 1=Drift noted before 10 sec Motor Arm - Right: 0=No drift Motor Leg - Left: 1=Drift before 5 sec Motor Leg - Right: 0=No drift Limb Ataxia: 0=Absent Sensory: 0=Normal Best Language: 0=No aphasia Dysarthia: 0=Normal articulation Extinction & Inattention (Neglect): 0=Normal, no object Score: 2 Severity Of Stroke: 1-4= Minor Stroke Disposition - Disposition Disposition: HOSPITALIZED Disposition Time: 03:13 Condition: FAIR - Clinical Impression Clinical Impression: TIA (transient ischemic attack) - Scribe Statement The provider has reviewed the documentation as recorded by the Scribe The provider has reviewed the documentation as recorded by the Scribe (Maury Rodriguez) Provider Attestation: All medical record entries made by the Scribe were at my direction and personally dictated by me. I have reviewed the chart and agree that the record accurately reflects my personal performance of the history, physical exam, medical decision making, and the department course for this patient. I have also personally directed, reviewed, and agree with the discharge instructions and disposition.
--- NOTE | 2017-06-25 20:43 | CT ---
EXAM: CT Head Without Intravenous Contrast EXAM DATE/TIME: 06/25/2017 8:01 PM CLINICAL HISTORY: 66 years old, female; Signs and symptoms; Numbness / parasthesia and weakness, facial; Left; Additional info: Code stroke TECHNIQUE: Axial computed tomography images of the head/brain without intravenous contrast. All CT scans at this facility use one or more dose reduction techniques, viz.: automated exposure control; ma/kV adjustment per patient size (including targeted exams where dose is matched to indication; i.e. head); or iterative reconstruction technique. Coronal and sagittal reformatted images were created and reviewed. COMPARISON: Prior images are not available for review. FINDINGS: Brain: Ventricles are normal in size and configuration. There is no midline shift. There is mild prominence of sulci and gyri. There are no intra-axial or extra-axial mass lesions or areas of hemorrhage. There are basal ganglia calcifications. There are no abnormal fluid collections. Chapin-white differentiation is maintained. Ventricles: See above. Bones: Cranial vault is intact. Soft tissues: unremarkable Sinuses: There is no acute sinusitis. Ears and mastoids: Middle ears and mastoids are unremarkable Orbits: Orbital contents are unremarkable. IMPRESSION: No acute intracranial abnormality
[2017-06-25 20:52] LABS: BASO % 0.3 % (0.0-2.0); EOS # 0.2 K/uL (0.0-0.7); HEMOGLOBIN 13.8 g/dL (11.0-16.0); LYMPH % 41.6 % (20.0-40.0); MEAN CELL VOLUME 83.5 fL (81.0-99.0); MEAN CORPUSCULAR HEMOGLOBIN 26.9 pg (27.0-31.0); MEAN CORPUSCULAR HGB CONC 32.2 g/dL (33.0-37.0); MEAN PLATELET VOLUME 7.3 fL (7.2-11.7); MONO # 0.7 K/uL (0.0-0.8); MONO % 7.6 % (0.0-10.0); NEUT # 4.6 K/uL (1.8-7.0); NEUT % 48.5 % (50.0-75.0); NRBC % 0.1 % (0.0-2.0); RBC 5.12 Mil/uL (3.80-5.20); RED CELL DISTRIBUTION WIDTH 15.5 % (11.5-14.5); WHITE BLOOD COUNT 9.6 K/uL (4.8-10.8)
[2017-06-25 21:00] LABS: PROTHROMBIN TIME 10.8 SECONDS (9.7-12.2)
[2017-06-25 21:06] LABS: ALB/GLOB RATIO 1.2 (1.0-2.1); ALBUMIN 4.3 g/dL (3.5-5.0); ALT/SGPT 43 U/L (9-52); AST/SGOT 32 U/L (14-36); BLOOD UREA NITROGEN 17 mg/dL (7-17); CALCIUM 9.9 mg/dl (8.6-10.4); GFR AFRICAN-AMERICAN > 60; GFR NON-AFRICAN AMERICAN 56; HDL CHOLESTEROL 62 mg/dL (30-70)
[2017-06-25 21:23] LABS: LDL CHOLESTEROL 84 mg/dL (0-129)
--- NOTE | 2017-06-25 23:56 | CP.PCM.HP ---
Past Patient History - Infectious Disease Hx of Infectious Diseases: None - Past Medical History & Family History Past Medical History?: Yes - Past Social History Smoking Status: Never Smoked - CARDIAC Hx Hypercholesterolemia: Yes Hx Hypertension: Yes - PULMONARY Hx Respiratory Disorders: No - NEUROLOGICAL Hx Transient Ischemic Attacks (TIA): Yes - HEENT Hx HEENT Problems: No - RENAL Hx Chronic Kidney Disease: No - ENDOCRINE/METABOLIC Hx Endocrine Disorders: No - HEMATOLOGICAL/ONCOLOGICAL Hx Blood Disorders: Yes - INTEGUMENTARY Hx Dermatological Problems: No - MUSCULOSKELETAL/RHEUMATOLOGICAL Hx Arthritis: Yes - GASTROINTESTINAL Hx Gall Bladder Disease: Yes Hx Gastritis: Yes - GENITOURINARY/GYNECOLOGICAL Hx Genitourinary Disorders: No - PSYCHIATRIC Hx Substance Use: No - SURGICAL HISTORY Hx Cholecystectomy: Yes - ANESTHESIA Hx Anesthesia: Yes Hx Anesthesia Reactions: No Meds Allergies/Adverse Reactions: Allergies Allergy/AdvReac Type Severity Reaction Status Date / Time No Known Allergies Allergy Verified 12/12/16 19:01 Results - Vital Signs Recent Vital Signs: Last Vital Signs Temp 98 F 06/25/17 19:59 Pulse 72 06/25/17 22:42 Resp 16 06/25/17 22:42 BP 153/71 H 06/25/17 22:42 Pulse Ox 97 06/25/17 22:42 - Labs Result Diagrams: 06/25/17 20:46 06/25/17 20:46 Labs: Laboratory Results - last 24 hr 06/25/17 06/25/17 06/25/17 19:53 20:46 20:46 WBC 9.6 RBC 5.12 Hgb 13.8 Hct 42.8 MCV 83.5 MCH 26.9 L MCHC 32.2 L RDW 15.5 H Plt Count 496 H MPV 7.3 Neut % (Auto) 48.5 L Lymph % (Auto) 41.6 H [place] % (Auto) 7.6 Eos % (Auto) 2.0 Baso % (Auto) 0.3 Neut # (Auto) 4.6 Lymph # (Auto) 4.0 [place] # (Auto) 0.7 Eos # (Auto) 0.2 Baso # (Auto) 0.0 PT 10.8 INR 1.0 APTT 28 Sodium Potassium Chloride Carbon Dioxide Anion Gap BUN Creatinine Est GFR ( Amer) Est GFR (Non-Af Amer) POC Glucose (mg/dL) 89 Random Glucose Hemoglobin A1c Calcium Total Bilirubin AST ALT Alkaline Phosphatase Troponin I Total Protein Albumin Globulin Albumin/Globulin Ratio Triglycerides Cholesterol LDL Cholesterol Direct HDL Cholesterol Blood Type Antibody Screen 06/25/17 06/25/17 06/25/17 20:46 20:46 20:46 WBC RBC Hgb Hct MCV MCH MCHC RDW Plt Count MPV Neut % (Auto) Lymph % (Auto) [place] % (Auto) Eos % (Auto) Baso % (Auto) Neut # (Auto) Lymph # (Auto) [place] # (Auto) Eos # (Auto) Baso # (Auto) PT INR APTT Sodium 139 Potassium 4.1 Chloride 100 Carbon Dioxide 26 Anion Gap 18 BUN 17 Creatinine 1.0 Est GFR ( Amer) > 60 Est GFR (Non-Af Amer) 56 POC Glucose (mg/dL) Random Glucose 96 Hemoglobin A1c 6.0 Calcium 9.9 Total Bilirubin 0.3 AST 32 ALT 43 Alkaline Phosphatase 97 Troponin I < 0.0120 Total Protein 7.9 Albumin 4.3 Globulin 3.6 Albumin/Globulin Ratio 1.2 Triglycerides 142 D Cholesterol 165 LDL Cholesterol Direct 84 HDL Cholesterol 62 Blood Type O POSITIVE Antibody Screen Negative
--- NOTE | 2017-06-26 08:10 | CT ---
PROCEDURE: CTA HEAD AND NECK WITH CONTRAST HISTORY: code stroke COMPARISON: None available. TECHNIQUE: Initial noncontrast head CT was performed. Subsequently, CT angiogram of the head and neck were performed after the intravenous administration of 80 mL of Omnipaque 350. Contiguous 1.5mm thick images were obtained in the axial plane of the neck. 2-D coronal and sagittal MPR images were obtained. Imaging postprocessing was performed with 3-D images also obtained. A delayed contrast head CT was also obtained. This CT exam was performed using one or more of the following dose reduction techniques: Automated exposure control, adjustment of the mA and/or kV according to patient size, and/or use of iterative reconstruction technique. Contrast dose: 100 cc Visipaque 320 Radiation dose: Total exam DLP = 622.49 mGy-cm. FINDINGS: HEAD: Right: The intracranial internal carotid artery, and anterior and middle cerebral arteries are widely patent. Left: The intracranial internal carotid artery, and anterior and middle cerebral arteries are widely patent. Posterior circulation: The visualized intracranial vertebral arteries, basilar artery and posterior cerebral arteries are widely patent. There is origin of bilateral posterior cerebral arteries with hypoplastic vertebrobasilar system, an anatomic variant. Ther is no endoluminal filling defect to suggest thrombus. There is no intracranial saccular aneurysm. NECK: There is a three vessel aortic arch. There is no stenosis at the origins of the great vessels at the level of the aortic arch. Right Carotid: On the right, the common carotid, internal carotid and external carotid arteries are widely patent. There is no hemodynamically significant stenosis in the internal carotid artery by NASCET criteria. Left Carotid: On the left, the common carotid, internal carotid and external carotid arteries are widely patent.There is no hemodynamically significant stenosis in the internal carotid artery by NASCET criteria. The vertebral arteries are widely patent. The right vertebral artery is hypoplastic, an anatomic variant. The visualized soft tissues of the neck are normal. The visualized brain and cervical spine are within normal limits. The lung apices are clear. IMPRESSION: No evidence of occlusion, definite significant stenosis or saccular aneurysm. No evidence of hemodynamically significant stenosis in the internal carotid arteries by NASCET criteria. A preliminary report was provided by [facility].
--- NOTE | 2017-06-26 08:32 | RAD ---
Chest x-ray single frontal view History: Code stroke. Comparison: 12/12/2016 Findings: Small rounded nodular density projecting over the right upper to mid lung zone suggestive for a nodule and or granuloma. Mild venous congestion. Heart size within normal limits. Degenerative changes in the spine and shoulders. Impression: Small rounded nodular density projecting over the right upper to mid lung zone suggestive for a nodule and or granuloma. Mild venous congestion.
--- NOTE | 2017-06-26 12:31 | CARD ---
APPROVED REPORT EKG Measurement Heart [id number] <Conclusion> Normal sinus rhythm Possible Left atrial enlargement Left ventricular hypertrophy Inferior infarct, age undetermined Anterior infarct, age undetermined Abnormal ECG
--- NOTE | 2017-06-26 14:05 | CP.PCM.CON ---
History of Present Illness - History of Present Illness History of Present Illness: 66 yr old woman who came in as a code stroke, presented at 8 pm to the ed, with symptoms starting about 4 hours prior, not deemed to be a TPA candidate. She presented with left sided facial droop, dysarthria and headache since about 530. Overnight, she had no progression of symptoms, was well. MRI Brain was just done and images have as of yet not uploaded. CTA is normal, as is CT head. Patient was admitted for stroke workup. PMH/PSH: as per chart. Fh/SH: . Has 3 children. no tobacco, no etoh. From [place]. All: nkda. On exam: Aaox3. Pupils 3mm-2mm with light. Cn 2-12 intact. 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 The patient has no dysmetria, no post pointing. Gait: no ataxia. Walks with assistance. No rhomberg. +2 ul and ll bl. Toes downgoing. No clonus. Past Patient History - Infectious Disease Hx of Infectious Diseases: None - Past Medical History & Family History Past Medical History?: Yes - Past Social History Smoking Status: Never Smoked - CARDIAC Hx Cardiac Disorders: Yes Hx Hypercholesterolemia: Yes Hx Hypertension: Yes - PULMONARY Hx Respiratory Disorders: No - NEUROLOGICAL Hx Neurological Disorder: Yes Hx Transient Ischemic Attacks (TIA): Yes - HEENT Hx HEENT Problems: No - RENAL Hx Chronic Kidney Disease: No - ENDOCRINE/METABOLIC Hx Endocrine Disorders: No - HEMATOLOGICAL/ONCOLOGICAL Hx Blood Disorders: No - INTEGUMENTARY Hx Dermatological Problems: No - MUSCULOSKELETAL/RHEUMATOLOGICAL Hx Musculoskeletal Disorders: Yes Hx Arthritis: Yes Hx Falls: Yes - GASTROINTESTINAL Hx Gastrointestinal Disorders: Yes Hx Gall Bladder Disease: Yes Hx Gastritis: Yes - GENITOURINARY/GYNECOLOGICAL Hx Genitourinary Disorders: No - PSYCHIATRIC Hx Psychophysiologic Disorder: No Hx Substance Use: No - SURGICAL HISTORY Hx Surgeries: Yes Hx Cholecystectomy: Yes - ANESTHESIA Hx Anesthesia: Yes Hx Anesthesia Reactions: No Hx Malignant Hyperthermia: No Has any member of the family had a problem w/ anesthesia?: No Meds Allergies/Adverse Reactions: Allergies Allergy/AdvReac Type Severity Reaction Status Date / Time No Known Allergies Allergy Verified 12/12/16 19:01 - Medications Medications: Current Medications Amlodipine Besylate (Norvasc) 10 mg PO DAILY [facility] Last Admin: 06/26/17 11:40 Dose: Not Given Aspirin (Ecotrin) 81 mg PO DAILY [facility] Last Admin: 06/26/17 11:39 Dose: Not Given Clopidogrel Bisulfate (Plavix) 75 mg PO DAILY [facility] Last Admin: 06/26/17 11:40 Dose: Not Given Docusate Sodium (Colace) 100 mg PO TID [facility] Last Admin: 06/26/17 11:39 Dose: Not Given Famotidine (Pepcid) 20 mg PO BID [facility] Last Admin: 06/26/17 11:40 Dose: Not Given Gabapentin (Neurontin) 300 mg PO DAILY [facility] Last Admin: 06/26/17 11:39 Dose: Not Given Rosuvastatin Calcium (Crestor) 10 mg PO [facility] Results - Vital Signs Recent Vital Signs: Last Vital Signs Temp 97.1 F L 06/26/17 10:52 Pulse 62 06/26/17 10:52 Resp 20 06/26/17 10:52 BP 115/57 L 06/26/17 10:52 Pulse Ox 96 06/26/17 10:52 - Labs Result Diagrams: 06/25/17 20:46 06/25/17 20:46 Labs: Laboratory Results - last 24 hr 06/25/17 06/25/17 06/25/17 19:53 20:46 20:46 WBC 9.6 RBC 5.12 Hgb 13.8 Hct 42.8 MCV 83.5 MCH 26.9 L MCHC 32.2 L RDW 15.5 H Plt Count 496 H MPV 7.3 Neut % (Auto) 48.5 L Lymph % (Auto) 41.6 H [place] % (Auto) 7.6 Eos % (Auto) 2.0 Baso % (Auto) 0.3 Neut # (Auto) 4.6 Lymph # (Auto) 4.0 [place] # (Auto) 0.7 Eos # (Auto) 0.2 Baso # (Auto) 0.0 PT 10.8 INR 1.0 APTT 28 Sodium Potassium Chloride Carbon Dioxide Anion Gap BUN Creatinine Est GFR ( Amer) Est GFR (Non-Af Amer) POC Glucose (mg/dL) 89 Random Glucose Hemoglobin A1c Calcium Total Bilirubin AST ALT Alkaline Phosphatase Troponin I Total Protein Albumin Globulin Albumin/Globulin Ratio Triglycerides Cholesterol LDL Cholesterol Direct HDL Cholesterol Blood Type Antibody Screen 06/25/17 06/25/17 06/25/17 20:46 20:46 20:46 WBC RBC Hgb Hct MCV MCH MCHC RDW Plt Count MPV Neut % (Auto) Lymph % (Auto) [place] % (Auto) Eos % (Auto) Baso % (Auto) Neut # (Auto) Lymph # (Auto) [place] # (Auto) Eos # (Auto) Baso # (Auto) PT INR APTT Sodium 139 Potassium 4.1 Chloride 100 Carbon Dioxide 26 Anion Gap 18 BUN 17 Creatinine 1.0 Est GFR ( Amer) > 60 Est GFR (Non-Af Amer) 56 POC Glucose (mg/dL) Random Glucose 96 Hemoglobin A1c 6.0 Calcium 9.9 Total Bilirubin 0.3 AST 32 ALT 43 Alkaline Phosphatase 97 Troponin I < 0.0120 Total Protein 7.9 Albumin 4.3 Globulin 3.6 Albumin/Globulin Ratio 1.2 Triglycerides 142 D Cholesterol 165 LDL Cholesterol Direct 84 HDL Cholesterol 62 Blood Type O POSITIVE Antibody Screen Negative - Imaging and Cardiology CT scan - head Status: Image reviewed by me, Report reviewed by me (Ct head and CTA is normal. MRi Brain is pending. ) Assessment & Plan - Assessment and Plan (Free Text) Assessment: 66 yr old woman with new onset rigth mca stroke, internal capsule, who is now undergoing stroke workup. Plan: 1. MRI Brain report pending. 2. ECHO pending. 3. start aspirin 4. Lipid profile. 5. Physical therapy and speech therapy.
--- NOTE | 2017-06-26 14:42 | MRI ---
PROCEDURE: MRI BRAIN WITHOUT CONTRAST HISTORY: Stroke COMPARISON: MRI brain without contrast from 12/14/[address] from 06/25/2017 TECHNIQUE: Multiplanar, multisequence MR images of the brain were obtained without intravenous contrast enhancement. FINDINGS: HEMORRHAGE: None DWI: No evidence of an acute or early subacute infarction. BRAIN PARENCHYMA: There are mild chronic microangiopathic changes. There is no mass, mass effect or abnormal extra-axial fluid collection. The midline sagittal structures are normal. There is a partially empty sella. VENTRICLES: There is mild age-related global parenchymal volume loss and proportionate enlargement of the ventricles and cortical sulci. CRANIUM: There is normal bone marrow signal pattern. ORBITS: Grossly unremarkable. PARANASAL SINUSES/MASTOIDS: There is mild polypoid mucosal thickening in the right inferior maxillary sinus. The remaining included paranasal sinuses and mastoid air cells are predominantly clear. VASCULAR SYSTEM: There are normal signal voids in the larger intracranial arteries. OTHER FINDINGS: None. IMPRESSION: No acute intracranial abnormality. Specifically, no evidence of acute infarction. Mild chronic microangiopathic changes and mild age-related global parenchymal volume loss.
[2017-06-26 16:21] VITALS: RESP 20
[2017-06-26] MEDS: Dextrose 5%/0.45% NS 1,000 ML IV SCH (16:38)
--- NOTE | 2017-06-26 16:56 | CP.PCM.PN ---
Subjective - Date & Time of Evaluation Date of Evaluation: 06/26/17 Time of Evaluation: 15:40 - Subjective Subjective: clinically same Objective - Vital Signs/Intake and Output Vital Signs (last 24 hours): Temp Pulse Resp BP Pulse Ox 98.1 F 76 20 132/71 97 06/26/17 15:00 06/26/17 16:10 06/26/17 15:00 06/26/17 15:00 06/26/17 15:00 - Medications Medications: Current Medications Amlodipine Besylate (Norvasc) 10 mg PO DAILY [facility] Last Admin: 06/26/17 11:40 Dose: Not Given Aspirin (Ecotrin) 81 mg PO DAILY [facility] Last Admin: 06/26/17 11:39 Dose: Not Given Clopidogrel Bisulfate (Plavix) 75 mg PO DAILY [facility] Last Admin: 06/26/17 11:40 Dose: Not Given Docusate Sodium (Colace) 100 mg PO TID [facility] Last Admin: 06/26/17 11:39 Dose: Not Given Famotidine (Pepcid) 20 mg PO BID [facility] Last Admin: 06/26/17 11:40 Dose: Not Given Gabapentin (Neurontin) 300 mg PO DAILY [facility] Last Admin: 06/26/17 11:39 Dose: Not Given Dextrose/Sodium Chloride (Dextrose 5%/0.45% Ns 1000 Ml) 1,000 mls @ 70 mls/hr IV .[id number] [facility] Last Admin: 06/26/17 16:38 Dose: 70 mls/hr Rosuvastatin Calcium (Crestor) 10 mg PO HS [facility] - Labs Labs: 06/25/17 20:46 06/25/17 20:46 PT 10.8 SECONDS (9.7-12.2) 06/25/17 20:46 INR 1.0 06/25/17 20:46 APTT 28 SECONDS (21-34) 06/25/17 20:46 - Constitutional Appears: Well - Head Exam Head Exam: ATRAUMATIC, NORMAL INSPECTION, NORMOCEPHALIC - Eye Exam Eye Exam: EOMI, Normal appearance, PERRL Pupil Exam: NORMAL ACCOMODATION, PERRL - ENT Exam ENT Exam: Mucous Membranes Moist, Normal Exam - Neck Exam Neck Exam: Full ROM, Normal Inspection - Respiratory Exam Respiratory Exam: Decreased Breath Sounds - Cardiovascular Exam Cardiovascular Exam: REGULAR RHYTHM, +S1, +S2 - GI/Abdominal Exam GI & Abdominal Exam: Soft, Diminished Bowel Sounds - Rectal Exam Rectal Exam: Deferred
[2017-06-27 07:05] LABS: MEAN CELL VOLUME 83.7 fL (81.0-99.0); MEAN CORPUSCULAR HEMOGLOBIN 27.7 pg (27.0-31.0); MEAN CORPUSCULAR HGB CONC 33.1 g/dL (33.0-37.0); MEAN PLATELET VOLUME 7.3 fL (7.2-11.7); RBC 4.68 Mil/uL (3.80-5.20); RED CELL DISTRIBUTION WIDTH 14.9 % (11.5-14.5); WHITE BLOOD COUNT 6.7 K/uL (4.8-10.8)
[2017-06-27 07:42] LABS: BLOOD UREA NITROGEN 22 mg/dL (7-17); CALCIUM 9.2 mg/dl (8.6-10.4); GFR AFRICAN-AMERICAN > 60; GFR NON-AFRICAN AMERICAN > 60
--- NOTE | 2017-06-27 08:22 | CP.PCM.PN ---
Subjective - Date & Time of Evaluation Date of Evaluation: 06/27/17 Time of Evaluation: 08:20 - Subjective Subjective: Ms. Namita Egan was seen and examined at the bedside. She is alert, oriented in all spheres. She speaks mainly Turkmen. [place] [id number]. She is able to answer questions and follow simple commands appropriately. She has left side weakness. She further states of blurred vision of her left eye getting worse since December. She further states of experiencing moderate to severe low back pain radiating down on her bilateral lower extremities. MRI of the brain (06/26/2017) showed no acute intracranial abnormality, specifically no evidence of acute infarction. Mild to chronic microangiopathic changes and mild age-related global parenchymal volume loss. CTA of the head and neck showed no evidence of occlusion, definite significant stenosis or saccular aneursm. No evidence of hemodynamically significant stenosis in the ICA. There was no untoward events overnight. Objective - Vital Signs/Intake and Output Vital Signs (last 24 hours): Temp Pulse Resp BP Pulse Ox 98.3 F 65 20 140/74 97 06/26/17 23:00 06/27/17 05:11 06/26/17 23:00 06/27/17 05:11 06/26/17 23:00 Intake and Output: 06/27/17 06/27/17 06:59 18:59 Intake Total 240 Balance 240 - Medications Medications: Current Medications Amlodipine Besylate (Norvasc) 10 mg PO DAILY [facility] Last Admin: 06/26/17 11:40 Dose: Not Given Aspirin (Ecotrin) 81 mg PO DAILY [facility] Last Admin: 06/26/17 11:39 Dose: Not Given Clopidogrel Bisulfate (Plavix) 75 mg PO DAILY [facility] Last Admin: 06/26/17 11:40 Dose: Not Given Docusate Sodium (Colace) 100 mg PO TID [facility] Last Admin: 06/26/17 15:05 Dose: Not Given Famotidine (Pepcid) 20 mg PO BID [facility] Last Admin: 06/26/17 21:31 Dose: 20 mg Gabapentin (Neurontin) 300 mg PO DAILY [facility] Last Admin: 06/26/17 11:39 Dose: Not Given Dextrose/Sodium Chloride (Dextrose 5%/0.45% Ns 1000 Ml) 1,000 mls @ 70 mls/hr IV .[id number] [facility] Last Admin: 06/26/17 16:38 Dose: 70 mls/hr Rosuvastatin Calcium (Crestor) 10 mg PO HS [facility] Last Admin: 06/26/17 21:28 Dose: 10 mg - Labs Labs: 06/27/17 06:54 06/27/17 06:54 PT 10.8 SECONDS (9.7-12.2) 06/25/17 20:46 INR 1.0 06/25/17 20:46 APTT 28 SECONDS (21-34) 06/25/17 20:46 - Constitutional Appears: No Acute Distress - Head Exam Head Exam: NORMAL INSPECTION - Neurological Exam Neurological Exam: Alert, Awake, Oriented x3 Neuro motor strength exam: Left Upper Extremity: 4, Right Upper Extremity: 5, Left Lower Extremity: 4, Right Lower Extremity: 5 Additional comments: Left side weaker than the right with sensation remains intact. Assessment and Plan (1) TIA (transient ischemic attack) Assessment & Plan: Case discussed with Dr. Sun, continue all current medical, physical, and occupational therapies. Recommend echocardiogram with bubble study. Recommend opthalmology consult for her left blurred vision. Recommend MRI of the spine to evaluate the pain in her back. Recommend loop recorder with Dr. Etienne to monitor her heart rhythm and TRACTOR EXPERT/ EMG with Dr. Leticia Espinosa which can be done as an outpatient. Status: Acute
--- NOTE | 2017-06-27 14:09 | CP.PCM.PN ---
Subjective - Date & Time of Evaluation Date of Evaluation: 06/27/17 Time of Evaluation: 14:00 - Subjective Subjective: clinically same Objective - Vital Signs/Intake and Output Vital Signs (last 24 hours): Temp Pulse Resp BP Pulse Ox 98.8 F 76 20 131/85 98 06/27/17 08:41 06/27/17 08:41 06/27/17 08:41 06/27/17 08:41 06/27/17 08:41 Intake and Output: 06/27/17 06/27/17 06:59 18:59 Intake Total 240 Balance 240 - Medications Medications: Current Medications Amlodipine Besylate (Norvasc) 10 mg PO DAILY [facility] Last Admin: 06/27/17 11:17 Dose: 10 mg Aspirin (Ecotrin) 81 mg PO DAILY [facility] Last Admin: 06/27/17 11:19 Dose: 81 mg Clopidogrel Bisulfate (Plavix) 75 mg PO DAILY [facility] Last Admin: 06/27/17 11:17 Dose: 75 mg Docusate Sodium (Colace) 100 mg PO TID [facility] Last Admin: 06/27/17 11:18 Dose: 100 mg Famotidine (Pepcid) 20 mg PO BID [facility] Last Admin: 06/27/17 11:17 Dose: 20 mg Gabapentin (Neurontin) 300 mg PO DAILY [facility] Last Admin: 06/27/17 11:19 Dose: 300 mg Dextrose/Sodium Chloride (Dextrose 5%/0.45% Ns 1000 Ml) 1,000 mls @ 70 mls/hr IV .[id number] [facility] Last Admin: 06/26/17 16:38 Dose: 70 mls/hr Rosuvastatin Calcium (Crestor) 10 mg PO HS [facility] Last Admin: 06/26/17 21:28 Dose: 10 mg - Labs Labs: 06/27/17 06:54 06/27/17 06:54 PT 10.8 SECONDS (9.7-12.2) 06/25/17 20:46 INR 1.0 06/25/17 20:46 APTT 28 SECONDS (21-34) 06/25/17 20:46 - Constitutional Appears: Well - Head Exam Head Exam: ATRAUMATIC, NORMAL INSPECTION, NORMOCEPHALIC - Eye Exam Eye Exam: EOMI, Normal appearance, PERRL Pupil Exam: NORMAL ACCOMODATION, PERRL - ENT Exam ENT Exam: Mucous Membranes Moist, Normal Exam - Neck Exam Neck Exam: Full ROM, Normal Inspection. absent: Lymphadenopathy - Respiratory Exam Respiratory Exam: Decreased Breath Sounds - Cardiovascular Exam Cardiovascular Exam: REGULAR RHYTHM, +S1, +S2 - GI/Abdominal Exam GI & Abdominal Exam: Soft, Diminished Bowel Sounds - Rectal Exam Rectal Exam: Deferred
--- NOTE | 2017-06-27 14:24 | MRI ---
PROCEDURE: Lumbar spine dated 06/27/2017 HISTORY: Low back pain COMPARISON: Made with prior CT scan of the abdomen and pelvis 07/27/2016 which image the lumbar spine in 3 planes for correlation also made with prior radiographs of the lumbar spine 08/31/2014 FINDINGS: The current study reveals no acute compression fractures no retropulsed fragments. 13 bodies exhibit relatively normal stature. Demonstrated is a mild dextroscoliosis. Vertebral bodies and facets otherwise normally aligned. Multilevel degenerative spondylosis. . At the L5-S1 level, there is age related disc desiccation. Disc space height maintained. . Small broad-based disc bulge ridge complex extends into the proximal inferior margins both exit foramina. Facet joints also hypertrophic. Overall central canal appears adequate marginal to adequate. There is tiny annular fissure with posterior annulus. The exit foramina are slightly narrowed on the right-sided with mild compressive effects on the anterior inferior exiting right-sided L5 nerve root. At the L4-L5 level, there is mild age related disc desiccation with minor disc space narrowing. Small asymmetric broad-based disc protrusion ridge complex extends into the proximal inferior margins of both exit foramina right larger than left. The facet joints also hypertrophic. There is surface of the thecal sac mild flattening of the ventral surface of thecal sac and mild bilateral lateral recess narrowing. Facet joints are hypertrophic with buckled ligamentum flavum. The exit foramina are narrowed bilaterally left slightly more so than right. At the L 3 L4 level, there is disc desiccation. Disc space height maintained. Mild asymmetric broad-based bulge of the posterior annulus larger on the right than left. The disc results in mild flattening of the ventral surface of the thecal sac more so on the right side. Facets also hypertrophic. There is very minor bilateral lateral recess narrowing right greater than left. Central canal measured at midline is adequate. Exit foramina are narrowed on the right and adequate on the left. At the L2-L3 level,, there is mild age related disc desiccation. Disc space height maintained. Minimal proximal bilateral foraminal disc bulging. The central canal appears adequate. Facets are hypertrophic. Exit foramina adequate. At the L1-L2 level, there is disc desiccation and disc space narrowing more so along the anterior disc margin. Small broad-based disc bulge ridge complex extends into the proximal inferior margin of the right exit foramen on. Results in some minor flattening of the ventral surface of the thecal sac however the overall central canal quite capacious. Facets are hypertrophic. Exit foramina are mildly narrowed on the right and adequate on the left. At the T12-L1 level, there is also disc desiccation and disc space narrowing more so along the anterior disc margin. Minimal broad-based bulge of the posterior annulus results some flattening of the ventral surface of the thecal sac however the overall central canal is quite capacious. Facets slightly hypertrophic. Exit foramina adequate. Conus terminates at approximately mid to lower L1 level. Incidental note is made of what appears represent some clumping of the nerve roots of the cauda equina with the nerve roots that are peripherally located, apparently adherent to the lateral margins of the thecal sac ("empty thecal sac sign"). These changes become most conspicuous at approximately the mid L2 and extend inferiorly to the sacral thecal sac level. . Findings consistent with arachnoiditis. IMPRESSION: No acute fractures. Multilevel degenerative spondylosis most notably affecting the lower 3 lumbar disc space levels as described. 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 Clinical correlation with history recommended.
[2017-06-27] MEDS: Dextrose 5%/0.45% NS 1,000 ML IV SCH (22:04)
--- NOTE | 2017-06-28 07:39 | CP.PCM.PN ---
Subjective - Date & Time of Evaluation Date of Evaluation: 06/28/17 Time of Evaluation: 07:34 - Subjective Subjective: Ms. Namita Egan was seen and examined at the bedside. She is alert, oriented speaks mainly macedonian, utilized educational sign language interpreter Miranda Jaime # [id number]. She denies any headache, but complains of mild dizziness with change of position. She was able to answer all questions and follow simple commands. She complains of joint pain in her hands worse upon waking up and gets better during the day. MRI of the lumbar spine showed no acute fractures, multivele degenerative spondylosis most notably affecting the lower 3 lumbar disc space. 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 There was no untoward events overnight. Objective - Vital Signs/Intake and Output Vital Signs (last 24 hours): Temp Pulse Resp BP Pulse Ox 97.1 F L 66 20 143/78 96 06/27/17 23:10 06/27/17 23:10 06/27/17 23:10 06/27/17 23:10 06/27/17 23:10 - Medications Medications: Current Medications Amlodipine Besylate (Norvasc) 10 mg PO DAILY [facility] Last Admin: 06/27/17 11:17 Dose: 10 mg Aspirin (Ecotrin) 81 mg PO DAILY [facility] Last Admin: 06/27/17 11:19 Dose: 81 mg Clopidogrel Bisulfate (Plavix) 75 mg PO DAILY [facility] Last Admin: 06/27/17 11:17 Dose: 75 mg Docusate Sodium (Colace) 100 mg PO TID [facility] Last Admin: 06/27/17 17:48 Dose: 100 mg Famotidine (Pepcid) 20 mg PO BID [facility] Last Admin: 06/27/17 17:48 Dose: 20 mg Gabapentin (Neurontin) 300 mg PO DAILY [facility] Last Admin: 06/27/17 11:19 Dose: 300 mg Dextrose/Sodium Chloride (Dextrose 5%/0.45% Ns 1000 Ml) 1,000 mls @ 70 mls/hr IV .[id number] [facility] Last Admin: 06/27/17 22:04 Dose: Not Given Rosuvastatin Calcium (Crestor) 10 mg PO HS [facility] Last Admin: 06/27/17 21:39 Dose: 10 mg - Labs Labs: 06/27/17 06:54 06/27/17 06:54 PT 10.8 SECONDS (9.7-12.2) 06/25/17 20:46 INR 1.0 06/25/17 20:46 APTT 28 SECONDS (21-34) 06/25/17 20:46 - Constitutional Appears: No Acute Distress - Head Exam Head Exam: NORMAL INSPECTION - Neurological Exam Neurological Exam: Alert, Awake, Oriented x3 Neuro motor strength exam: Left Upper Extremity: 5, Right Upper Extremity: 5, Left Lower Extremity: 5, Right Lower Extremity: 5 Additional comments: Neurological unchanged from previous examination. Assessment and Plan (1) TIA (transient ischemic attack) Assessment & Plan: Case discussed with Dr. escobar, continue all current medical, physical, and occupational therapies. Recommend echocardiogram with bubble study. Recommend opthalmology consult for her left blurred vision. Recommend MRI of the spine to evaluate the pain in her back. Recommend loop recorder with Dr. Etienne to monitor her heart rhythm and GROMMET MACHINE OPERATOR/ EMG with Dr. Letciia Espinosa which can be done as an outpatient. Please refer to primary physician regarding the result of he lumbar MRI , Pending results of echocardiogram, if it is normal, clear from neurology for discharge Status: Acute
--- NOTE | 2017-06-28 11:37 | CARD ---
APPROVED REPORT EXAM: Two-dimensional and M-mode echocardiogram with Doppler and color Doppler. Other Information Quality : GoodRhythm : INDICATION CVA/TIA RISK FACTORS Hypertension Hyperlipidemia 2D DIMENSIONS IVSd1.1 (0.7-1.1cm)LVDd4.3 (3.9-5.9cm) PWd1.1 (0.7-1.1cm)LVDs2.7 (2.5-4.0cm) FS (%) 35.7 %LVEF (%)65.5 (>50%) M-Mode DIMENSIONS Left Atrium (MM)3.24 (2.5-4.0cm)Aortic Root2.93 (2.2-3.7cm) Aortic Cusp Exc.2.02 (1.5-2.0cm) Mitral Valve MV E Cxmsmwqp16.2cm/sMV A Zpkgpafx982.0cm/sE/A ratio0.8 TDI E/Lateral E'0.0E/Medial E'0.0 Tricuspid Valve TR Peak [id number]/sTR Peak Gr.[id number] LEFT VENTRICLE The left ventricle is normal size. There is normal left ventricular wall thickness. The left ventricular function is normal. The left ventricular ejection fraction is within the normal range. No regional wall motion abnormalities noted. The left ventricular diastolic function is normal. No left ventricle thrombus noted on this study. There is no ventricular septal defect visualized. There is no left ventricular aneurysm. There is no mass noted in the left ventricle. RIGHT VENTRICLE The right ventricle is normal size. There is normal right ventricular wall thickness. The right ventricular systolic function is normal. ATRIA The left atrium size is normal. The right atrium size is normal. The interatrial septum is intact with no evidence for an atrial septal defect. AORTIC VALVE The aortic valve is normal in structure and function. No aortic regurgitation is present. There is no aortic valvular stenosis. There is no aortic valvular vegetation. MITRAL VALVE The mitral valve is normal in structure and function. There is no evidence of mitral valve prolapse. There is no mitral valve stenosis. Mitral regurgitation is trace to mild. TRICUSPID VALVE The tricuspid valve is normal in structure and function. There is mild tricuspid regurgitation. Right ventricular systolic pressure is estimated at 30-40 mmHg. There is no tricuspid valve prolapse or vegetation. There is no tricuspid valve stenosis. PULMONIC VALVE The pulmonary valve is normal in structure and function. There is no pulmonic valvular regurgitation. There is no pulmonic valvular stenosis. GREAT VESSELS The aortic root is normal in size. The ascending aorta is normal in size. The pulmonary artery is normal. The IVC is normal in size and collapses >50% with inspiration. PERICARDIAL EFFUSION The pericardium appears normal. There is no pleural effusion. <Conclusion> The left ventricular function is normal. The left ventricular ejection fraction is within the normal range. No regional wall motion abnormalities noted. There is mild tricuspid regurgitation. Right ventricular systolic pressure is estimated at 30-40 mmHg.
[2017-06-28 16:04] VITALS: PULSE 66
[2017-06-28 16:51] VITALS: BP 131/60; TEMP 97.2; O2SAT 95
--- NOTE | 2017-06-28 17:11 | CP.PCM.PN ---
Subjective - Date & Time of Evaluation Date of Evaluation: 06/28/17 Time of Evaluation: 11:40 - Subjective Subjective: OPERATIONS SUPERVISOR NOTES Patient seen today , awake, alert, ox3, denies any chest pain, sob, dizziness, numbness/ tinglings Objective - Vital Signs/Intake and Output Vital Signs (last 24 hours): Temp Pulse Resp BP Pulse Ox 97.2 F L 66 20 131/60 95 06/28/17 15:00 06/28/17 16:03 06/28/17 15:00 06/28/17 15:00 06/28/17 15:00 - Medications Medications: Current Medications Amlodipine Besylate (Norvasc) 10 mg PO DAILY [facility] Last Admin: 06/28/17 10:33 Dose: 10 mg Aspirin (Ecotrin) 81 mg PO DAILY [facility] Last Admin: 06/28/17 10:33 Dose: 81 mg Clopidogrel Bisulfate (Plavix) 75 mg PO DAILY [facility] Last Admin: 06/28/17 10:33 Dose: 75 mg Docusate Sodium (Colace) 100 mg PO TID [facility] Last Admin: 06/28/17 10:33 Dose: 100 mg Famotidine (Pepcid) 20 mg PO BID [facility] Last Admin: 06/28/17 10:33 Dose: 20 mg Gabapentin (Neurontin) 300 mg PO DAILY [facility] Last Admin: 06/28/17 10:33 Dose: 300 mg Dextrose/Sodium Chloride (Dextrose 5%/0.45% Ns 1000 Ml) 1,000 mls @ 70 mls/hr IV .[id number] [facility] Last Admin: 06/27/17 22:04 Dose: Not Given Rosuvastatin Calcium (Crestor) 10 mg PO HS [facility] Last Admin: 06/27/17 21:39 Dose: 10 mg - Labs Labs: 06/27/17 06:54 06/27/17 06:54 PT 10.8 SECONDS (9.7-12.2) 06/25/17 20:46 INR 1.0 06/25/17 20:46 APTT 28 SECONDS (21-34) 06/25/17 20:46 Assessment and Plan - Assessment and Plan (Free Text) Assessment: A/P 66 yr old female admitted wiht TIA seen by Dr. Robert rodriguez , as per Dr. Robert rodriguez . patient can be discharge home [facility] and f/iu with his office all RX given to the patient
--- NOTE | 2017-06-28 17:25 | CP.PCM.PN ---
Subjective - Date & Time of Evaluation Date of Evaluation: 06/28/17 Time of Evaluation: 16:40 - Subjective Subjective: pt clinically same Dr Sun following Objective - Vital Signs/Intake and Output Vital Signs (last 24 hours): Temp Pulse Resp BP Pulse Ox 97.2 F L 66 20 131/60 95 06/28/17 15:00 06/28/17 16:03 06/28/17 15:00 06/28/17 15:00 06/28/17 15:00 - Medications Medications: Current Medications Amlodipine Besylate (Norvasc) 10 mg PO DAILY [facility] Last Admin: 06/28/17 10:33 Dose: 10 mg Aspirin (Ecotrin) 81 mg PO DAILY [facility] Last Admin: 06/28/17 10:33 Dose: 81 mg Clopidogrel Bisulfate (Plavix) 75 mg PO DAILY [facility] Last Admin: 06/28/17 10:33 Dose: 75 mg Docusate Sodium (Colace) 100 mg PO TID [facility] Last Admin: 06/28/17 10:33 Dose: 100 mg Famotidine (Pepcid) 20 mg PO BID [facility] Last Admin: 06/28/17 10:33 Dose: 20 mg Gabapentin (Neurontin) 300 mg PO DAILY [facility] Last Admin: 06/28/17 10:33 Dose: 300 mg Dextrose/Sodium Chloride (Dextrose 5%/0.45% Ns 1000 Ml) 1,000 mls @ 70 mls/hr IV .[id number] [facility] Last Admin: 06/27/17 22:04 Dose: Not Given Rosuvastatin Calcium (Crestor) 10 mg PO HS [facility] Last Admin: 06/27/17 21:39 Dose: 10 mg - Labs Labs: 06/27/17 06:54 06/27/17 06:54 PT 10.8 SECONDS (9.7-12.2) 06/25/17 20:46 INR 1.0 06/25/17 20:46 APTT 28 SECONDS (21-34) 06/25/17 20:46
== END 2017-06-28 18:50 | disposition home health service (06) | DRG 832 ==
LOC: C.ER 19:11 → C.9E 21:35 → C.6T 06-26 12:14
PROVIDERS: ADMIT Internal Medicine Nephrology; ATTEND Internal Medicine Nephrology
DX: G45.9 Transient cerebral ischemic attack, unspecified (principal); G54.4 Lumbosacral root disorders, not elsewhere classified; I10 Essential (primary) hypertension; E78.00 Pure hypercholesterolemia, unspecified; M47.816 Spondylosis without myelopathy or radiculopathy, lumbar region; Z86.010 Personal history of colon polyps; Z86.73 Personal history of transient ischemic attack (TIA), and cerebral infarction without residual deficits; Z90.49 Acquired absence of other specified parts of digestive tract

== ENCOUNTER 2018-02-07 11:37 | Emergency (ER) | payer MEDICAID, OTHER ==
[2018-02-07 11:50] VITALS: BMI 36.2
[2018-02-07 11:51] VITALS: RESP 18; O2SAT 98
[2018-02-07] MEDS ORDERED: Sodium Chloride 0.9% 1,000 ML IV ONE (12:44)
[2018-02-07] MEDS ORDERED: Aspirin 325 mg EC Tablets PO STA (12:44)
[2018-02-07 12:53] LABS: BASO # 0.1 K/uL (0.0-0.2); BASO % 0.9 % (0.0-2.0); EOS # 0.8 K/uL (0.0-0.7); EOS % 9.6 % (0.0-4.0); HEMOGLOBIN 13.4 g/dL (11.0-16.0); LYMPH # 4.2 K/uL (1.0-4.3); LYMPH % 49.7 % (20.0-40.0); MEAN CELL VOLUME 84.1 fL (81.0-99.0); MEAN CORPUSCULAR HEMOGLOBIN 27.5 pg (27.0-31.0); MEAN CORPUSCULAR HGB CONC 32.7 g/dL (33.0-37.0); MEAN PLATELET VOLUME 8.4 fL (7.2-11.7); MONO # 0.4 K/uL (0.0-0.8); NEUT % 34.8 % (50.0-75.0); RBC 4.87 Mil/uL (3.80-5.20); WHITE BLOOD COUNT 8.5 K/uL (4.8-10.8)
[2018-02-07] MEDS ORDERED: Sodium Chloride 0.9% 1,000 ML ONE (12:53)
[2018-02-07 13:02] LABS: PROTHROMBIN TIME 10.9 SECONDS (9.7-12.2)
--- NOTE | 2018-02-07 13:13 | C.PDOC ---
History Of Present Illness 67 year old female presents to ED for evaluation of flu-like symptoms. She complains of headache, generalized body weakness, non-productive cough, chest pain, shortness of breath, nasal congestion, and chills. Denies taking any over the counter medications. She also complains of bilateral feet pain and itching. Notes she was not able to follow up in the clinic due to insurance reasons. Denies abdominal pain, nausea, vomiting, or diarrhea. HPI: Influenza Time Seen by Provider: 02/07/18 12:19 Chief Complaint: Flu-like Symptoms History Per: Patient Exam Limitations: no limitations Symptoms include: headache, bodyaches, cough, nasal congestion, chest pain, difficulty breathing Sick Contacts (Context): None Past Medical History Reviewed: Historical Data, Nursing Documentation, Vital Signs Vital Signs: Last Vital Signs Temp 98.5 F 02/07/18 11:51 Pulse 84 02/07/18 11:51 Resp 18 02/07/18 11:51 BP 187/76 H 02/07/18 11:51 Pulse Ox 98 02/07/18 11:51 - Medical History PMH: Arthritis, Colonic Polyps, Gastritis, Gall Bladder Disease, HTN, Hypercholesterolemia, TIA (x3) Surgical History: Cholecystectomy, Endoscopy - [facility] Procedures ESOPHAGOGASTRODUODENOSCOPY [EGD] W/CLOSED BIOPSY (04/23/14) Family History: States: Unknown Family Hx - Social History Hx Tobacco Use: No Hx Alcohol Use: No Hx Substance Use: No - Immunization History Hx Tetanus Toxoid Vaccination: No Hx Influenza Vaccination: No Hx Pneumococcal Vaccination: No Review Of Systems Constitutional: Positive for: Chills, Weakness (body aches) ENT: Positive for: Nose Congestion Cardiovascular: Positive for: Chest Pain Respiratory: Positive for: Cough, Shortness of Breath, Sputum Gastrointestinal: Negative for: Nausea, Vomiting, Abdominal Pain Neurological: Positive for: Headache. Negative for: Weakness, Numbness Physical Exam - Physical Exam Appears: Non-toxic, Other (anxious, tearful) Skin: Warm, Dry, Other (thick yellow flaky hyperkeratosis to plantar aspect of bilateral feet ) Head: Atraumatic, Normacephalic Eye(s): bilateral: Normal Inspection, EOMI Oral Mucosa: Moist Neck: Normal ROM, Supple Chest: Symmetrical, No Tenderness Cardiovascular: Rhythm Regular, No Murmur Respiratory: Normal Breath Sounds, No Rales, No Rhonchi, No Wheezing Gastrointestinal/Abdominal: Soft, No Tenderness Extremity: Normal ROM, No Tenderness, No Pedal Edema, No Calf Tenderness, Capillary Refill (less than 2 seconds), No Deformity, No Swelling Pulses: Left Dorsalis Pedis: Normal, Right Dorsalis Pedis: Normal Neurological/Psych: Oriented x3, Normal Speech, Normal Motor, Normal Sensation Medical Decision Making Medical Decision Making: Impression: 67 y/o female with flu-like symptoms for 2 days. Plan: * Blood work * Urinalysis * Influenza AB * CXR * EKG * IV fluids * Aspirin All labs reviewed with no acute findings, no leukocytosis, anemia, renal impairment, glycemic problem or urine infection. CXR shows no active disease. Patient remained afebrile alert and oriented with stable vital signs during ER evaluation. Discussed results with patient, and the plan for discharge home. Patient reports improvement of symptoms. Recommend OTC antifungal cream for feet.Patient given follow up instructions. Instructed to return to ER if sy mptoms worsen or new symptoms arise. - Laboratory Results Result Diagrams: 02/07/18 12:49 02/07/18 15:05 - ECG ECG: Positive for: Interpreted By Me, Viewed By Me ECG Rhythm: Positive for: Normal QRS, Normal ST Segment Rate: 83 O2 Sat by Pulse Oximetry: 98 Pulse Ox Interpretation: Normal Disposition Counseled Patient/Family Regarding: Need For Followup, Rx Given - Disposition Referrals: Raisa Castaneda MD [Staff Provider] - Disposition: HOME/ ROUTINE Disposition Time: 15:59 Condition: GOOD Additional Instructions: Vaya a patterson mdico o la clnica en 2-5 norton sin falta, para mas evaluacin. [place] los medicamentos solange indicado. Volver a la yaakov de emergencia en cualquier momento si los sntomas persisten o empeoran. 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 - Scribe Statement The provider has reviewed the documentation as recorded by the Scribe KP All medical record entries made by the Scribe were at my direction and persona lly dictated by me. I have reviewed the chart and agree that the record accurately reflects my personal performance of the history, physical exam, medical decision making, and the department course for this patient. I have also personally directed, reviewed, and agree with the discharge instructions and disposition.
[2018-02-07 13:17] LABS: URINE BILIRUBIN NEGATIVE (NEGATIVE); URINE BLOOD 1+ (NEGATIVE); URINE CLARITY Clear (Clear); URINE COLOR Straw (YELLOW); URINE GLUCOSE (UA) NORMAL (Normal); URINE LEUKOCYTE ESTERASE NEG Leu/uL (Negative); URINE PROTEIN NEGATIVE (NEGATIVE); URINE UROBILINOGEN NORMAL mg/dL (0.2-1.0)
[2018-02-07 13:18] LABS: SQUAMOUS EPITHIAL 1 /hpf (0-5)
--- NOTE | 2018-02-07 15:19 | RAD ---
Date of service: 02/07/2018 HISTORY: SOB COMPARISON: 09/15/2017 and 11/11/2013 TECHNIQUE: Chest PA and lateral FINDINGS: LUNGS: No consolidation. The 6 to 7 mm benign-appearing granuloma in the right mid to upper lung zone junction is stable since 2013. PLEURA: No significant pleural effusion identified. No pneumothorax apparent. CARDIOVASCULAR: Mild cardiomegaly-similar. Probable minimal pulmonary venous congestion. Overall pulmonary vascular markings similar since 2017 and 2013.. No interval increased gross pulmonary venous congestion suspect. OSSEOUS STRUCTURES: Thoraco lumbar spondylosis. Spondylosis. Bilateral acromioclavicular joint arthrosis. VISUALIZED UPPER ABDOMEN: Normal. OTHER FINDINGS: None. IMPRESSION: No interval significant change appreciated. Probable minimal pulmonary venous congestion possibly chronic. No effusions. Right lung benign granuloma unchanged since 2013.
[2018-02-07 15:28] LABS: ALB/GLOB RATIO 1.4 (1.0-2.1); ALBUMIN 4.1 g/dL (3.5-5.0); ALT/SGPT 59 U/L (9-52); AST/SGOT 43 U/L (14-36); BLOOD UREA NITROGEN 9 mg/dL (7-17); CALCIUM 9.4 mg/dl (8.6-10.4); GFR NON-AFRICAN AMERICAN > 60
[2018-02-07 15:31] VITALS: BP 122/73; TEMP 97.2
[2018-02-07 15:39] LABS: B-TYPE NATRIURETIC PEPTIDE 17.2 pg/mL (0-900)
[2018-02-07 16:01] VITALS: PULSE 83
--- NOTE | 2018-02-12 23:35 | CARD ---
APPROVED REPORT Date of service: 02/07/2018 EKG Measurement Heart [id number] <Conclusion> Normal sinus rhythm Possible Left atrial enlargement Borderline ECG
== END 2018-02-07 16:12 | disposition home or self-care (01) ==
LOC: C.ER 11:37
DX: B34.9 Viral infection, unspecified (principal)
CPT/HCPCS: 71046; 80053; 81001; 83880; 84484; 85025; 85610; 85730; 87804; 96360; 99285; J7030